=== PATIENT | male | born 1940 | race Caucasian/White ===

== ENCOUNTER → 2016-06-06 | Outpatient (CLI) | payer MEDICARE, OTHER | LOC: MW.CHFP 08:00 | PROVIDERS: ATTEND Emergency Medicine | DX: Z48.02 Encounter for removal of sutures (principal); C44.310 Basal cell carcinoma of skin of unspecified parts of face; Z23 Encounter for immunization | CPT/HCPCS: 90732; G0009; G0463 ==

== ENCOUNTER 2017-09-04 13:02 | Emergency (ER) | payer MEDICARE, OTHER ==
[2017-09-04] MEDS ORDERED: Sodium Chloride 0.9% 10 ML Syringe FLUSH PRN (13:12)
[2017-09-04] MEDS ORDERED: Sodium Chloride 0.9% 2.5 ML Syringe FLUSH PRN (13:12)
[2017-09-04] MEDS ORDERED: Morphine 2 MG/ML Syringe IVPUSH ONE (13:48)
[2017-09-04] MEDS ORDERED: Albuterol/Ipratropium 3.0-0.5 MG/3 ML Neb Soln NEB ONE (13:48)
--- NOTE | 2017-09-04 13:55 | EDM.PDOC ---
ED HPI GENERAL MEDICAL PROBLEM - General Chief Complaint: Back Pain or Injury Stated Complaint: SOB Time Seen by Provider: 09/04/17 13:05 Source of Information: Reports: Patient History Limitations: Reports: No Limitations - History of Present Illness INITIAL COMMENTS - FREE TEXT/NARRATIVE: HISTORY AND PHYSICAL: History of present illness: [Krunal is a 76-year-old male here for muscle spasms and left sided rib pain. Patient states that he started having muscle spasms throughout his trunk 3 days ago. He reports spasming from his belt line to his shoulders front and back, worse with movement. He denies any injury. He states that 2 nights ago he was going to the bathroom, reached to stable himself on the counter and believes he got a muscle spasm that caused him to fall. He reports he hit his left chest on the cabinet and also hit his left elbow and head. He states he thinks he may have lost consciousness. He denies any headache, vomiting, change in vision since. He reports pain in the left chest with deep breaths. History of COPD but no increased SOB or cough. Denies hemoptysis, abdominal pain, hematuria, hematochezia, melena. ] Patient reports he went to [facility] yesterday and was given muscle relaxers which have helped. Review of systems: As per history of present illness and below otherwise all systems reviewed and negative. Past medical history: As per history of present illness and as reviewed below otherwise noncontributory. Surgical history: As per history of present illness and as reviewed below otherwise noncontributory. Social history: No reported history of drug or alcohol abuse. Family history: As per history of present illness and as reviewed below otherwise noncontributory. Physical exam: HEENT: Atraumatic, normocephalic, pupils reactive, negative for conjunctival pallor or scleral icterus, mucous membranes moist, throat clear, neck supple, nontender, trachea midline. Lungs: Rhonchi, wheezing and decreased breath sounds throughout all lungs ochoa. Heart: S1S2, regular, negative for clicks, rubs, or JVD. Abdomen: Soft, nondistended, nontender. Negative for masses or hepatosplenomegaly. Negative for costovertebral tenderness. Pelvis: Stable nontender. Rectal: Deferred. Musculoskeletal: Tender to palpation of left lateral and anterior chest wall over ribs 10-12. Overlying ecchymosis noted. No flail chest. Skin tear and ecchymosis of the left elbow without obvious deformity or swelling. No tenderness to palpation of left clavical and normal ROM of both shoulders and elbows. Extremities: Atraumatic, negative for cords or calf pain. Neurovascular unremarkable. Neuro: Awake, alert, oriented. Cranial nerves II through XII unremarkable. Cerebellum unremarkable. Motor and sensory unremarkable throughout. Exam nonfocal. Notes: Diagnostics: [EKG CBC, CMP, PT/INR, Troponin, UA X-ray left elbow X-ray left ribs with chest ] Therapeutics: [Morphine 2mg IV DuoNeb Azithromycin 250mg Tramadol 50mg Incentive spirometer ] Impression: [Chest wall contusion Skin tear left arm Muscle spasms] Plan: [#1 Take antibiotic and use incentive spirometer as instructed #2 You may take tramadol as needed for severe pain #3 Follow up with your PCP #4 Return to ED as needed as discussed ] Definitive disposition and diagnosis as appropriate pending reevaluation and review of above. Location: Reports: Neck back Pain Score (Numeric/FACES): 7 - Related Data Allergies Allergy/AdvReac Type Severity Reaction Status Date / Time levofloxacin [From Levaquin] Allergy Cannot Verified 09/04/17 14:09 Remember Home Meds: Home Meds Aspirin 81 mg PO DAILY 09/04/17 [History] Benazepril/Hydrochlorothiazide [Benazepril-Hctz 20-12.5 mg Tab] 12.5 mg PO DAILY 09/04/17 [History] Ca Carbonate/Vitamin D3/Vit K [Calcium + D Soft Chewable Tab] 1 tab PO DAILY 06/19 [History] Clopidogrel [Plavix] 75 mg PO DAILY 09/04/17 [History] Diltiazem [Cardizem CD] 120 mg PO DAILY 09/04/17 [History] Simvastatin [Zocor] 10 mg PO BEDTIME 09/04/17 [History] ED ROS GENERAL - Review of Systems Review Of Systems: ROS reveals no pertinent complaints other than HPI. ED EXAM,LOWER BACK PAIN/INJURY - Physical Exam Exam: See Below (see dictation) Course - Vital Signs Last Recorded V/S: Last Vital Signs Temp 36.4 C 09/04/17 13:02 Pulse 80 09/04/17 13:02 Resp 20 09/04/17 13:02 BP 134/84 09/04/17 13:02 Pulse Ox 92 L 09/04/17 13:13 - Orders/Labs/Meds Orders: Active Orders 24 hr Category Date Time Status Cardiac Monitoring [RC] . DIRECTED Care 09/04/17 13:12 Active EKG Documentation Completion [RC] STAT Care 09/04/17 13:13 Active Oxygen Therapy [RC] ASDIRECTED Care 09/04/17 13:12 Active Pulse Oximetry [RC] ASDIRECTED Care 09/04/17 13:12 Active RT Aerosol Therapy [RC] ASDIRECTED Care 09/04/17 13:48 Active Elbow 2V Lt [CR] Stat Exams 09/04/17 13:48 Taken Head wo Cont [CT] Stat Exams 09/04/17 13:55 Taken Ribs 2V w Chest Lt [CR] Stat Exams 09/04/17 13:48 Taken UA W/MICROSCOPIC [URIN] Stat Lab 09/04/17 15:25 Ordered Sodium Chloride 0.9% [Saline Flush] Med 09/04/17 13:12 Active 10 ml FLUSH ASDIRECTED PRN Sodium Chloride 0.9% [Saline Flush] Med 09/04/17 13:12 Active 2.5 ml FLUSH ASDIRECTED PRN Saline Lock Insert [OM.PC] Stat Oth 09/04/17 13:12 Ordered Medication Orders Sodium Chloride (Saline Flush) 10 ml FLUSH ASDIRECTED PRN PRN Reason: Keep Vein Open Sodium Chloride (Saline Flush) 2.5 ml FLUSH ASDIRECTED PRN PRN Reason: Keep Vein Open Labs: Laboratory Tests 09/04/17 09/04/17 09/04/17 Range/Units 13:30 13:30 13:30 WBC 12.27 H (4.0-11.0) K/uL RBC 4.62 (4.50-5.90) M/uL Hgb 16.4 (13.0-17.0) g/dL Hct 46.5 (38.0-50.0) % MCV 100.6 H (80.0-98.0) fL MCH 35.5 H (27.0-32.0) pg MCHC 35.3 (31.0-37.0) g/dL RDW Std Deviation 46.5 (28.0-62.0) fl RDW Coeff of Anibal 13 (11.0-15.0) % Plt Count 193 (150-400) K/uL MPV 11.10 (7.40-12.00) fL Neut % (Auto) 76.3 (48.0-80.0) % Lymph % (Auto) 11.5 L (16.0-40.0) % Runnels % (Auto) 11.9 (0.0-15.0) % Eos % (Auto) 0.1 (0.0-7.0) % Baso % (Auto) 0.2 (0.0-1.5) % Neut # (Auto) 9.4 H (1.4-5.7) K/uL Lymph # (Auto) 1.4 (0.6-2.4) K/uL Runnels # (Auto) 1.5 H (0.0-0.8) K/uL Eos # (Auto) 0.0 (0.0-0.7) K/uL Baso # (Auto) 0.0 (0.0-0.1) K/uL Nucleated RBC % 0.0 /100WBC Nucleated RBCs # 0 K/uL INR 1.06 Sodium 133 L (136-148) mmol/L Potassium 3.4 L (3.5-5.1) mmol/L Chloride 97 L (98-107) mmol/L Carbon Dioxide 27.4 (21.0-32.0) mmol/L BUN 11 (7.0-18.0) mg/dL Creatinine 1.2 (0.8-1.3) mg/dL Est Cr Clr Drug Dosing TNP Estimated GFR (MDRD) 58.9 ml/min Glucose 122 H (74-106) mg/dL Calcium 9.5 (8.5-10.1) mg/dL Total Bilirubin 1.7 H (0.2-1.0) mg/dL AST 22 (15-37) IU/L ALT 16 (14-63) IU/L Alkaline Phosphatase 57 (46-116) U/L Troponin I < 0.050 (0.000-0.056) ng/mL Total Protein 7.1 (6.4-8.2) g/dL Albumin 3.2 L (3.4-5.0) g/dL Globulin 3.9 H (2.0-3.5) g/dL Albumin/Globulin Ratio 0.8 L (1.3-2.8) Urine Color Urine Appearance Urine pH (5.0-8.0) Ur Specific Maynard (1.001-1.035) Urine Protein (NEGATIVE) mg/dL Urine Glucose (UA) (NEGATIVE) mg/dL Urine Ketones (NEGATIVE) mg/dL Urine Occult Blood (NEGATIVE) Urine Nitrite (NEGATIVE) Urine Bilirubin (NEGATIVE) Urine Urobilinogen (<2.0) EU/dL Ur Leukocyte Esterase (NEGATIVE) Urine RBC (0-2/HPF) Urine WBC (0-5/HPF) Ur Epithelial Cells (NONE-FEW) Urine Bacteria (NEGATIVE) 09/04/17 Range/Units 15:25 WBC (4.0-11.0) K/uL RBC (4.50-5.90) M/uL Hgb (13.0-17.0) g/dL Hct (38.0-50.0) % MCV (80.0-98.0) fL MCH (27.0-32.0) pg MCHC (31.0-37.0) g/dL RDW Std Deviation (28.0-62.0) fl RDW Coeff of Anibal (11.0-15.0) % Plt Count (150-400) K/uL MPV (7.40-12.00) fL Neut % (Auto) (48.0-80.0) % Lymph % (Auto) (16.0-40.0) % Runnels % (Auto) (0.0-15.0) % Eos % (Auto) (0.0-7.0) % Baso % (Auto) (0.0-1.5) % Neut # (Auto) (1.4-5.7) K/uL Lymph # (Auto) (0.6-2.4) K/uL Runnels # (Auto) (0.0-0.8) K/uL Eos # (Auto) (0.0-0.7) K/uL Baso # (Auto) (0.0-0.1) K/uL Nucleated RBC % /100WBC Nucleated RBCs # K/uL INR Sodium (136-148) mmol/L Potassium (3.5-5.1) mmol/L Chloride (98-107) mmol/L Carbon Dioxide (21.0-32.0) mmol/L BUN (7.0-18.0) mg/dL Creatinine (0.8-1.3) mg/dL Est Cr Clr Drug Dosing Estimated GFR (MDRD) ml/min Glucose (74-106) mg/dL Calcium (8.5-10.1) mg/dL Total Bilirubin (0.2-1.0) mg/dL AST (15-37) IU/L ALT (14-63) IU/L Alkaline Phosphatase (46-116) U/L Troponin I (0.000-0.056) ng/mL Total Protein (6.4-8.2) g/dL Albumin (3.4-5.0) g/dL Globulin (2.0-3.5) g/dL Albumin/Globulin Ratio (1.3-2.8) Urine Color YELLOW Urine Appearance CLEAR Urine pH 6.0 (5.0-8.0) Ur Specific Maynard 1.010 (1.001-1.035) Urine Protein NEGATIVE (NEGATIVE) mg/dL Urine Glucose (UA) NEGATIVE (NEGATIVE) mg/dL Urine Ketones TRACE H (NEGATIVE) mg/dL Urine Occult Blood TRACE-INTACT (NEGATIVE) Urine Nitrite NEGATIVE (NEGATIVE) Urine Bilirubin NEGATIVE (NEGATIVE) Urine Urobilinogen 0.2 (<2.0) EU/dL Ur Leukocyte Esterase NEGATIVE (NEGATIVE) Urine RBC 0-2 (0-2/HPF) Urine WBC 0-2 (0-5/HPF) Ur Epithelial Cells FEW (NONE-FEW) Urine Bacteria FEW (NEGATIVE) Meds: Medications Generic Name Dose Route Start Last Admin Trade Name Freq PRN Reason Stop Dose Admin Sodium Chloride 10 ml 09/04/17 13:12 Saline Flush FLUSH ASDIRECTED PRN Keep Vein Open Sodium Chloride 2.5 ml 09/04/17 13:12 Saline Flush FLUSH ASDIRECTED PRN Keep Vein Open Discontinued Medications Generic Name Dose Route Start Last Admin Trade Name Freq PRN Reason Stop Dose Admin Albuterol/Ipratropium 3 ml 09/04/17 13:48 09/04/17 14:00 Duoneb 3.0-0.5 Mg/3 Ml NEB 09/04/17 13:49 3 ml ONETIME ONE Administration Morphine Sulfate 2 mg 09/04/17 13:48 09/04/17 14:20 Morphine IVPUSH 09/04/17 13:49 2 mg ONETIME ONE Administration Departure - Departure Time of Disposition: 16:38 Disposition: Home, Self-Care 01 Condition: Good Clinical Impression: Chest wall contusion, Skin tear, Muscle spasm - Discharge Information Referrals: Korey Canseco MD [Primary Care Provider] - Forms: ED Department Discharge Additional Instructions: The following information is given to patients seen in the emergency department who are being discharged to home. This information is to outline your options for follow-up care. We provide all patients seen in our emergency department with a follow-up referral. The need for follow-up, as well as the timing and circumstances, are variable depending upon the specifics of your emergency department visit. If you don't have a primary care physician on staff, we will provide you with a referral. We always advise you to contact your personal physician following an emergency department visit to inform them of the circumstance of the visit and for follow-up with them and/or the need for any referrals to a consulting specialist. The emergency department will also refer you to a specialist when appropriate. This referral assures that you have the opportunity for follow-up care with a specialist. All of these measure are taken in an effort to provide you with optimal care, which includes your follow-up. Under all circumstances we always encourage you to contact your private physician who remains a resource for coordinating your care. When calling for follow-up care, please make the office aware that this follow-up is from your recent emergency room visit. If for any reason you are refused follow-up, please contact the [facility] Emergency Department at and asked to speak to the emergency department charge nurse. [facility] Primary Care [address] [place] [id number] #1 Take antibiotic and use incentive spirometer as instructed #2 You may take tramadol as needed for severe pain #3 Follow up with your PCP #4 Return to ED as needed as discussed - My Orders Last 24 Hours: My Active Orders 09/04/17 13:12 Cardiac Monitoring [RC] . DIRECTED Oxygen Therapy [RC] ASDIRECTED Pulse Oximetry [RC] ASDIRECTED Sodium Chloride 0.9% [Saline Flush] 10 ml FLUSH ASDIRECTED PRN Sodium Chloride 0.9% [Saline Flush] 2.5 ml FLUSH ASDIRECTED PRN Saline Lock Insert [OM.PC] Stat 09/04/17 13:13 EKG Documentation Completion [RC] STAT 09/04/17 13:48 RT Aerosol Therapy [RC] ASDIRECTED Elbow 2V Lt [CR] Stat Ribs 2V w Chest Lt [CR] Stat 09/04/17 13:55 Head wo Cont [CT] Stat 09/04/17 15:25 UA W/MICROSCOPIC [URIN] Stat - Assessment/Plan Last 24 Hours: My Active Orders 09/04/17 13:12 Cardiac Monitoring [RC] . DIRECTED Oxygen Therapy [RC] ASDIRECTED Pulse Oximetry [RC] ASDIRECTED Sodium Chloride 0.9% [Saline Flush] 10 ml FLUSH ASDIRECTED PRN Sodium Chloride 0.9% [Saline Flush] 2.5 ml FLUSH ASDIRECTED PRN Saline Lock Insert [OM.PC] Stat 09/04/17 13:13 EKG Documentation Completion [RC] STAT 09/04/17 13:48 RT Aerosol Therapy [RC] ASDIRECTED Elbow 2V Lt [CR] Stat Ribs 2V w Chest Lt [CR] Stat 09/04/17 13:55 Head wo Cont [CT] Stat 09/04/17 15:25 UA W/MICROSCOPIC [URIN] Stat
[2017-09-04 14:08] LABS: CHLORIDE,CL 97 mmol/L (98-107); SODIUM,NA 133 mmol/L (136-148)
--- NOTE | 2017-09-05 10:16 | CT ---
EXAM DATE: 09/04/17 PATIENT'S AGE: 76 Patient: LIZETTE BAIN Facility: [place], [place] Site . Site : 1940 Study: CT Head [id number]/4/2018 2:49:59 PM Ordering Physician: Doctor Akers Final Report: INDICATION: Head injury. TECHNIQUE: Head CT without contrast. COMPARISON: None FINDINGS: CSF spaces: Within normal limits for age. Brain parenchyma: There are nonspecific low attenuation white matter changes consistent with chronic microvascular disease. No sign of mass, hemorrhage, or midline shift. Skull base and calvarium: The visualized paranasal sinuses and mastoid air cells are clear. 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 The visualized orbits are grossly unremarkable. No skull fractures. There is intracranial atherosclerosis. IMPRESSION: 1. No acute findings. 2. Nonspecific white matter disease, typical of chronic microvascular disease. Please note that all CT scans at this facility use dose modulation, iterative reconstruction, and/or weight-based dosing when appropriate to reduce radiation dose to as low as reasonably achievable. Dictated by Mervin Quiroz MD @ Sep 04 2017 2:58PM (Electronic Signature) Report Signed by Proxy. [facility]
--- NOTE | 2017-09-05 10:18 | CR ---
EXAM DATE: 09/04/17 PATIENT'S AGE: 76 Patient: LIZETTE BAIN Facility: [place], [place] Site . Site : 1940 Study: XRay Extremity Left ELBOW [id number]/4/2018 3:16:28 PM Ordering Physician: Doctor Akers Final Report: INDICATION: Elbow pain after fall. TECHNIQUE: Two views left elbow COMPARISON: None FINDINGS: Bones: No acute fracture. No dislocation. No suspicious bone lesion. Joint spaces: Small osteophyte at the coronoid process of the ulna. Soft tissues: Unremarkable. IMPRESSION: No acute osseous abnormality. Dictated by Ortiz Mckeon MD @ 09/04/2017 3:35:37 PM Dictated by: Ortiz Mckeon MD @ 09/04/2017 15:35:46 (Electronic Signature) Report Signed by Proxy. LEONCIO
--- NOTE | 2017-09-05 10:22 | CR ---
EXAM DATE: 09/04/17 PATIENT'S AGE: 76 Patient: LIZETTE BAIN Facility: [place], [place] Site . Site : 1940 Study: XRay Chest Left RIBS [id number]/4/2018 3:19:11 PM Ordering Physician: Doctor Akers Final Report: INDICATION: Pain after fall TECHNIQUE: Chest and left ribs - 4 views. COMPARISON: Chest radiograph. 09/03/2012. FINDINGS: The cardiac silhouette is not enlarged. The mediastinal contour is stable. Pulmonary vasculature is normal. New mild elevation of the right hemidiaphragm. There is apparent scarring versus atelectasis in the right infrahilar retrocardiac region. No lobar consolidation. No edema. No lung mass. No pneumothorax or pleural effusion. There degenerate changes at the left AC joint. No rib fracture identified. IMPRESSION: No acute abnormality. Dictated by Ortiz Mckeon MD @ 09/04/2017 3:40:33 PM Dictated by: Ortiz Mckeon MD @ 09/04/2017 15:40:37 (Electronic Signature) Report Signed by Proxy. [facility]
== END 2017-09-04 17:03 | disposition home or self-care (01) ==
LOC: MW.ED 13:02
DX: S51.012A Laceration without foreign body of left elbow, initial encounter (principal); S20.212A Contusion of left front wall of thorax, initial encounter; M62.838 Other muscle spasm; J44.9 Chronic obstructive pulmonary disease, unspecified; Z88.1 Allergy status to other antibiotic agents; Z79.82 Long term (current) use of aspirin; Z79.899 Other long term (current) drug therapy; W06.XXXA Fall from bed, initial encounter
CPT/HCPCS: 36415; 70450; 71101; 73070; 80053; 81001; 84484; 85025; 85610; 93005; 94640; 96372; 99284; J2270

== ENCOUNTER 2017-11-20 17:28 | Inpatient (IN) | payer MEDICARE, OTHER ==
[2017-11-20] MEDS ORDERED: Sodium Chloride 0.9% 250 ML IV SCH (18:30)
[2017-11-20] MEDS ORDERED: methylPREDNISolone Sodium Succinate 125 MG/2 ML SDV IVPUSH ONE (18:46)
--- NOTE | 2017-11-20 18:46 | EDM.PDOC ---
<Albert Stauffer - Last Filed: 11/20/17 18:47> ED HPI GENERAL MEDICAL PROBLEM - General Chief Complaint: General Stated Complaint: WEAK,DIZZY AND DEHYDERATED Time Seen by Provider: 11/20/17 18:44 Source of Information: Reports: Patient - History of Present Illness INITIAL COMMENTS - FREE TEXT/NARRATIVE: HISTORY AND PHYSICAL: History of present illness: []Patient presents with generalized weakness and cough, he has secondary complaint of low back pain this is not a new issue he has an MRI on file from 2 weeks ago no injury or trauma He presents with his daughter was concerned as he is generally weak and tired and noted that his oxygen levels at rest or slightly low at 89% and white count is elevated Patient denies fever chills sweats denies shortness of breath but is fairly tired even drowsy while I am speaking with him and examining him He is on Flexeril and tramadol due to the back pain which could cause the drowsy side effect Review of systems: As per history of present illness and below otherwise all systems reviewed and negative. Past medical history: As per history of present illness and as reviewed below otherwise noncontributory. Surgical history: As per history of present illness and as reviewed below otherwise noncontributory. Social history: No reported history of drug or alcohol abuse. Family history: As per history of present illness and as reviewed below otherwise noncontributory. Physical exam: HEENT: Atraumatic, normocephalic, pupils reactive, negative for conjunctival pallor or scleral icterus, mucous membranes moist, throat clear, neck supple, nontender, trachea midline. Lungs: Clear to auscultation, breath sounds equal bilaterally, chest nontender. Heart: S1S2, regular, negative for clicks, rubs, or JVD. Abdomen: Soft, nondistended, nontender. Negative for masses or hepatosplenomegaly. Negative for costovertebral tenderness. Pelvis: Stable nontender. Genitourinary: Deferred. Rectal: Deferred. Extremities: Atraumatic, negative for cords or calf pain. Neurovascular unremarkable. Neuro: Awake, alert, oriented. Cranial nerves II through XII unremarkable. Cerebellum unremarkable. Motor and sensory unremarkable throughout. Exam nonfocal. Diagnostics: [CBC CMP UA troponin blood cultures EKG Chest 1 view ]MRI lumbar spine on file from 2 weeks prior Therapeutics: [ saline 1 25 mL per hour Solu-Medrol 125 mg IV DuoNeb ] I've seen and examined the patient as above I'll be signing the patient out to [place] to follow the lab and chest x-ray and redirect for definitive disposition as shift change is nearing in a few minutes, patient is in no acute distress whatsoever at this time Impression: [ generalized weakness Fatigue ] O2 levels 89 at rest Chronic history baseline Definitive disposition and diagnosis as appropriate pending reevaluation and review of above. lower back Pain Score (Numeric/FACES): 5 - Related Data Allergies Allergy/AdvReac Type Severity Reaction Status Date / Time [facility] Allergy Cannot Verified 11/20/17 17:45 Remember Home Meds: Home Meds Aspirin 81 mg PO DAILY 09/04/17 [History] Benazepril/Hydrochlorothiazide [Benazepril-Hctz 20-12.5 mg Tab] 12.5 mg PO DAILY 09/04/17 [History] Ca Carbonate/Vitamin D3/Vit K [Calcium + D Soft Chewable Tab] 1 tab PO DAILY 06/19 [History] Clopidogrel [Plavix] 75 mg PO DAILY 09/04/17 [History] Diltiazem [Cardizem CD] 120 mg PO DAILY 09/04/17 [History] Simvastatin [Zocor] 10 mg PO BEDTIME 09/04/17 [History] Cyclobenzaprine [Flexeril] 10 mg PO TID 11/20/17 [History] Metaxalone 800 mg PO 11/20/17 [History] traMADol HCl [Tramadol HCl] 50 mg PO DAILY 11/20/17 [History] Past Medical History Respiratory History: Reports: COPD Musculoskeletal History: Reports: Back Pain, Chronic Other Musculoskeletal History: 2 back surgeries Course - Vital Signs Last Recorded V/S: Last Vital Signs Temp 36.2 C 11/20/17 17:45 Pulse 99 11/20/17 20:04 Resp 18 11/20/17 20:04 BP 124/74 11/20/17 20:04 Pulse Ox 92 L 11/20/17 20:04 - Orders/Labs/Meds Orders: Active Orders 24 hr Category Date Time Status Admission Status [Patient Status] [ADT] Stat ADT 11/20/17 21:13 Active EKG Documentation Completion [RC] STAT Care 11/20/17 18:29 Active RT Aerosol Therapy [RC] ASDIRECTED Care 11/20/17 18:47 Active Chest 1V Frontal [CR] Stat Exams 11/20/17 18:32 Taken CULTURE BLOOD [BC] Stat Lab 11/20/17 19:06 Received CULTURE BLOOD [BC] Stat Lab 11/20/17 19:10 Results LACTATE WITH REFLEX [BG] Stat Lab 11/20/17 21:01 Ordered Sodium Chloride 0.9% [Normal Saline] 250 ml Med 11/20/17 18:30 Active IV STAT Blood Culture x2 Reflex Set [OM.PC] Stat Oth 11/20/17 18:44 Ordered Medication Orders Sodium Chloride (Normal Saline) 250 mls @ 999 mls/hr IV STAT LITTLE Last Admin: 11/20/17 19:08 Dose: 999 mls/hr Labs: Laboratory Tests 11/20/17 11/20/17 11/20/17 Range/Units 18:15 18:15 18:28 WBC 17.96 H (4.0-11.0) K/uL RBC 4.68 (4.50-5.90) M/uL Hgb 15.7 (13.0-17.0) g/dL Hct 45.3 (38.0-50.0) % MCV 96.8 (80.0-98.0) fL MCH 33.5 H (27.0-32.0) pg MCHC 34.7 (31.0-37.0) g/dL RDW Std Deviation 45.3 (28.0-62.0) fl RDW Coeff of Anibal 13 (11.0-15.0) % Plt Count 211 (150-400) K/uL MPV 11.20 (7.40-12.00) fL Neut % (Auto) 89.2 H (48.0-80.0) % Lymph % (Auto) 4.9 L (16.0-40.0) % [place] % (Auto) 5.7 (0.0-15.0) % Eos % (Auto) 0.1 (0.0-7.0) % Baso % (Auto) 0.1 (0.0-1.5) % Neut # (Auto) 16.0 H (1.4-5.7) K/uL Lymph # (Auto) 0.9 (0.6-2.4) K/uL [place] # (Auto) 1.0 H (0.0-0.8) K/uL Eos # (Auto) 0.0 (0.0-0.7) K/uL Baso # (Auto) 0.0 (0.0-0.1) K/uL Nucleated RBC % 0.0 /100WBC Nucleated RBCs # 0 K/uL INR 1.07 Lactate (0.20-2.00) mmol/L Sodium 130 L (136-148) mmol/L Potassium 3.6 (3.5-5.1) mmol/L Chloride 92 L (98-107) mmol/L Carbon Dioxide 28.9 (21.0-32.0) mmol/L BUN 15 (7.0-18.0) mg/dL Creatinine 1.3 (0.8-1.3) mg/dL Est Cr Clr Drug Dosing 49.13 mL/min Estimated GFR (MDRD) 53.5 ml/min Glucose 106 (74-106) mg/dL Calcium 9.9 (8.5-10.1) mg/dL Total Bilirubin 1.5 H (0.2-1.0) mg/dL AST 30 (15-37) IU/L ALT 16 (14-63) IU/L Alkaline Phosphatase 136 H (46-116) U/L Troponin I < 0.050 (0.000-0.056) ng/mL Total Protein 7.6 (6.4-8.2) g/dL Albumin 3.4 (3.4-5.0) g/dL Globulin 4.2 H (2.0-3.5) g/dL Albumin/Globulin Ratio 0.8 L (1.3-2.8) Urine Color Urine Appearance Urine pH (5.0-8.0) Ur Specific [place] (1.001-1.035) Urine Protein (NEGATIVE) mg/dL Urine Glucose (UA) (NEGATIVE) mg/dL Urine Ketones (NEGATIVE) mg/dL Urine Occult Blood (NEGATIVE) Urine Nitrite (NEGATIVE) Urine Bilirubin (NEGATIVE) Urine Ictotest Urine Urobilinogen (<2.0) EU/dL Ur Leukocyte Esterase (NEGATIVE) Urine RBC (0-2/HPF) Urine WBC (0-5/HPF) Ur Epithelial Cells (NONE-FEW) Urine Bacteria (NEGATIVE) Hyaline Casts (0-2/LPF) 11/20/17 11/20/17 Range/Units 19:10 20:03 WBC (4.0-11.0) K/uL RBC (4.50-5.90) M/uL Hgb (13.0-17.0) g/dL Hct (38.0-50.0) % MCV (80.0-98.0) fL MCH (27.0-32.0) pg MCHC (31.0-37.0) g/dL RDW Std Deviation (28.0-62.0) fl RDW Coeff of [place]ibal (11.0-15.0) % Plt Count (150-400) K/uL MPV (7.40-12.00) fL Neut % (Auto) (48.0-80.0) % Lymph % (Auto) (16.0-40.0) % [place] % (Auto) (0.0-15.0) % Eos % (Auto) (0.0-7.0) % Baso % (Auto) (0.0-1.5) % Neut # (Auto) (1.4-5.7) K/uL Lymph # (Auto) (0.6-2.4) K/uL [place] # (Auto) (0.0-0.8) K/uL Eos # (Auto) (0.0-0.7) K/uL Baso # (Auto) (0.0-0.1) K/uL Nucleated RBC % /100WBC Nucleated RBCs # K/uL INR Lactate 0.7 (0.20-2.00) mmol/L Sodium (136-148) mmol/L Potassium (3.5-5.1) mmol/L Chloride (98-107) mmol/L Carbon Dioxide (21.0-32.0) mmol/L BUN (7.0-18.0) mg/dL Creatinine (0.8-1.3) mg/dL Est Cr Clr Drug Dosing mL/min Estimated GFR (MDRD) ml/min Glucose (74-106) mg/dL Calcium (8.5-10.1) mg/dL Total Bilirubin (0.2-1.0) mg/dL AST (15-37) IU/L ALT (14-63) IU/L Alkaline Phosphatase (46-116) U/L Troponin I (0.000-0.056) ng/mL Total Protein (6.4-8.2) g/dL Albumin (3.4-5.0) g/dL Globulin (2.0-3.5) g/dL Albumin/Globulin Ratio (1.3-2.8) Urine Color YELLOW Urine Appearance CLEAR Urine pH 6.0 (5.0-8.0) Ur Specific [place] 1.015 (1.001-1.035) Urine Protein NEGATIVE (NEGATIVE) mg/dL Urine Glucose (UA) NEGATIVE (NEGATIVE) mg/dL Urine Ketones 15 H (NEGATIVE) mg/dL Urine Occult Blood NEGATIVE (NEGATIVE) Urine Nitrite NEGATIVE (NEGATIVE) Urine Bilirubin SMALL H (NEGATIVE) Urine Ictotest NEGATIVE Urine Urobilinogen 0.2 (<2.0) EU/dL Ur Leukocyte Esterase NEGATIVE (NEGATIVE) Urine RBC 0-1 (0-2/HPF) Urine WBC 0-2 (0-5/HPF) Ur Epithelial Cells OCCASIONAL (NONE-FEW) Urine Bacteria FEW (NEGATIVE) Hyaline Casts 10-15 (0-2/LPF) Meds: Medications Generic Name Dose Route Start Last Admin Trade Name Freq PRN Reason Stop Dose Admin Sodium Chloride 250 mls @ 999 mls/hr 11/20/17 18:30 11/20/17 19:08 Normal Saline IV 999 mls/hr STAT LITTLE Administration Discontinued Medications Generic Name Dose Route Start Last Admin Trade Name Freq PRN Reason Stop Dose Admin Albuterol/Ipratropium 3 ml 11/20/17 18:47 11/20/17 19:12 Duoneb 3.0-0.5 Mg/3 Ml NEB 11/20/17 18:48 3 ml ONETIME ONE Administration Methylprednisolone Sodium Succinate 125 mg 11/20/17 18:46 11/20/17 19:07 Solu-Medrol IVPUSH 11/20/17 18:47 125 mg ONETIME ONE Administration Departure - Departure Disposition: Refer to Observation Clinical Impression: Pneumonia - Discharge Information Referrals: PCP,None [Primary Care Provider] - Forms: ED Department Discharge - My Orders Last 24 Hours: My Active Orders 11/20/17 21:01 LACTATE WITH REFLEX [BG] Stat 11/20/17 21:13 Admission Status [Patient Status] [ADT] Stat - Assessment/Plan Last 24 Hours: My Active Orders 11/20/17 21:01 LACTATE WITH REFLEX [BG] Stat 11/20/17 21:13 Admission Status [Patient Status] [ADT] Stat <Evelin Kumar - Last Filed: 11/20/17 21:15> ED HPI GENERAL MEDICAL PROBLEM - History of Present Illness INITIAL COMMENTS - FREE TEXT/NARRATIVE: Discussed with Dr. Draper, patient will be admitted to observation for IV antibiotics for pneumonia. ED ROS GENERAL - Review of Systems Review Of Systems: ROS reveals no pertinent complaints other than HPI. ED EXAM, GENERAL - Physical Exam Exam: See Below (see dictation) Departure - Departure Time of Disposition: 21:15 Condition: Good - My Orders Last 24 Hours: My Active Orders 11/20/17 21:01 LACTATE WITH REFLEX [BG] Stat 11/20/17 21:13 Admission Status [Patient Status] [ADT] Stat - Assessment/Plan Last 24 Hours: My Active Orders 11/20/17 21:01 LACTATE WITH REFLEX [BG] Stat 11/20/17 21:13 Admission Status [Patient Status] [ADT] Stat
[2017-11-20] MEDS ORDERED: Albuterol/Ipratropium 3.0-0.5 MG/3 ML Neb Soln NEB ONE (18:47)
[2017-11-20 19:08] LABS: CHLORIDE,CL 92 mmol/L (98-107); SODIUM,NA 130 mmol/L (136-148)
[2017-11-20] MEDS ORDERED: cefTRIAXone 1 GM in Sodium Chloride 0.9% 50 ML IV ONE (21:17)
--- NOTE | 2017-11-20 22:31 | PCM.HP ---
H&P History of Present Illness - General Date of Service: 11/20/17 Admit Problem/Dx: Admission Diagnosis/Problem Admission Diagnosis/Problem Pneumonia - History of Present Illness Initial Comments - Free Text/Narative: His daughter states that she sought medical attention for him today because he was "out of it". He has been confused. He seems short of breath and was coughing. When questioned, he states that he is here because of back pain. I see in review of his chart that he has been evaluated the past two months for spinal stenosis, neural foraminal impingement, as well as compression fractures noted on MRI scanning last week of T11 and T12. Vertebroplasty has been planned. He lives alone and usually can do self care, drive a car . He seems perhaps a little forgetful at times but he has never been diagnosed with confusion. He already seems improving to family members. He smokes cigarettes and has a history of copd. lower back Pain Score (Numeric/FACES): 5 - Related Data Allergies/Adverse Reactions: Allergies Allergy/AdvReac Type Severity Reaction Status Date / Time levofloxacin [From Levaquin] Allergy Cannot Verified 11/20/17 17:45 Remember Home Medications: Home Meds Aspirin 81 mg PO DAILY 09/04/17 [History] Benazepril/Hydrochlorothiazide [Benazepril-Hctz 20-12.5 mg Tab] 12.5 mg PO DAILY 09/04/17 [History] Ca Carbonate/Vitamin D3/Vit K [Calcium + D Soft Chewable Tab] 1 tab PO DAILY 06/19 [History] Clopidogrel [Plavix] 75 mg PO DAILY 09/04/17 [History] Diltiazem [Cardizem CD] 120 mg PO DAILY 09/04/17 [History] Simvastatin [Zocor] 10 mg PO BEDTIME 09/04/17 [History] Cyclobenzaprine [Flexeril] 10 mg PO TID 11/20/17 [History] Metaxalone 800 mg PO 11/20/17 [History] traMADol HCl [Tramadol HCl] 50 mg PO DAILY 11/20/17 [History] Past Medical History HEENT History: Reports: Impaired Vision Cardiovascular History: Reports: CAD Respiratory History: Reports: COPD Gastrointestinal History: Denies: Cirrhosis Genitourinary History: Denies: Chronic Renal Insuffiency Musculoskeletal History: Reports: Back Pain, Chronic Other Musculoskeletal History: 2 back surgeries Neurological History: Denies: Alzheimers Disease, CVA, MS Endocrine/Metabolic History: Denies: Diabetes, Type I, Diabetes, Type II Hematologic History: Denies: Anticoagulation Therapy Immunologic History: Denies: AIDS, HIV, Solid Organ Transplant - Infectious Disease History Infectious Disease History: Reports: Chicken Pox Social & Family History - Family History Family Medical History: Noncontributory - Tobacco Use Smoking Status *Q: Light Tobacco Smoker Years of Tobacco use: 50 Packs/Tins Daily: 0.4 Second Hand Smoke Exposure: Yes - Caffeine Use Caffeine Use: Reports: Coffee - Recreational Drug Use Recreational Drug Use: No H&P Review of Systems - Review of Systems: Review Of Systems: See Below General: Denies: Fever, Chills Pulmonary: Reports: Shortness of Breath, Cough Cardiovascular: Denies: Chest Pain Gastrointestinal: Reports: Other (he denies feeling constipated but states that he has not had a bm for about a week). Denies: Abdominal Pain, Black Stool, Bloody Stool Psychiatric: Reports: Confusion Review of Systems Comment:: he notes back pain Exam - Exam Exam: See Below (tenderness over the lower thoracic and upper lumbar spine) - Vital Signs Vital Signs: Last Vital Signs Temp 97.2 F 11/20/17 17:45 Pulse 99 11/20/17 20:04 Resp 18 11/20/17 20:04 BP 124/74 11/20/17 20:04 Pulse Ox 92 L 11/20/17 20:04 Weight: 74.843 kg - Exam General: Alert, Cooperative. No: Oriented HEENT: EOMI, Other (dry oral mucosa) Neck: Supple, Trachea Midline Lungs: Clear to Auscultation, Normal Respiratory Effort Cardiovascular: Regular Rate, Regular Rhythm GI/Abdominal Exam: Soft, Non-Tender Rectal (Males) Exam: Deferred Skin: Warm Neurological: Normal Speech (no dysarthria but speech confused) Neuro Extensive - Motor, Sensory, Reflexes: No: Facial palsy (L), Facial Palsy ( R) Physical Exam Comments:: normal capillary refill toes. - Patient Data Lab Results Last 24 hrs: Laboratory Results - last 24 hr 11/20/17 11/20/17 11/20/17 Range/Units 18:15 18:15 18:28 WBC 17.96 H (4.0-11.0) K/uL RBC 4.68 (4.50-5.90) M/uL Hgb 15.7 (13.0-17.0) g/dL Hct 45.3 (38.0-50.0) % MCV 96.8 (80.0-98.0) fL MCH 33.5 H (27.0-32.0) pg MCHC 34.7 (31.0-37.0) g/dL RDW Std Deviation 45.3 (28.0-62.0) fl RDW Coeff of Anibal 13 (11.0-15.0) % Plt Count 211 (150-400) K/uL MPV 11.20 (7.40-12.00) fL Neut % (Auto) 89.2 H (48.0-80.0) % Lymph % (Auto) 4.9 L (16.0-40.0) % [place] % (Auto) 5.7 (0.0-15.0) % Eos % (Auto) 0.1 (0.0-7.0) % Baso % (Auto) 0.1 (0.0-1.5) % Neut # (Auto) 16.0 H (1.4-5.7) K/uL Lymph # (Auto) 0.9 (0.6-2.4) K/uL [place] # (Auto) 1.0 H (0.0-0.8) K/uL Eos # (Auto) 0.0 (0.0-0.7) K/uL Baso # (Auto) 0.0 (0.0-0.1) K/uL Nucleated RBC % 0.0 /100WBC Nucleated RBCs # 0 K/uL INR 1.07 Lactate (0.20-2.00) mmol/L Sodium 130 L (136-148) mmol/L Potassium 3.6 (3.5-5.1) mmol/L Chloride 92 L (98-107) mmol/L Carbon Dioxide 28.9 (21.0-32.0) mmol/L BUN 15 (7.0-18.0) mg/dL Creatinine 1.3 (0.8-1.3) mg/dL Est Cr Clr Drug Dosing 49.13 mL/min Estimated GFR (MDRD) 53.5 ml/min Glucose 106 (74-106) mg/dL Calcium 9.9 (8.5-10.1) mg/dL Total Bilirubin 1.5 H (0.2-1.0) mg/dL AST 30 (15-37) IU/L ALT 16 (14-63) IU/L Alkaline Phosphatase 136 H (46-116) U/L Troponin I < 0.050 (0.000-0.056) ng/mL Total Protein 7.6 (6.4-8.2) g/dL Albumin 3.4 (3.4-5.0) g/dL Globulin 4.2 H (2.0-3.5) g/dL Albumin/Globulin Ratio 0.8 L (1.3-2.8) Urine Color Urine Appearance Urine pH (5.0-8.0) Ur Specific [place] (1.001-1.035) Urine Protein (NEGATIVE) mg/dL Urine Glucose (UA) (NEGATIVE) mg/dL Urine Ketones (NEGATIVE) mg/dL Urine Occult Blood (NEGATIVE) Urine Nitrite (NEGATIVE) Urine Bilirubin (NEGATIVE) Urine Ictotest Urine Urobilinogen (<2.0) EU/dL Ur Leukocyte Esterase (NEGATIVE) Urine RBC (0-2/HPF) Urine WBC (0-5/HPF) Ur Epithelial Cells (NONE-FEW) Urine Bacteria (NEGATIVE) Hyaline Casts (0-2/LPF) 11/20/17 11/20/17 Range/Units 19:10 20:03 WBC (4.0-11.0) K/uL RBC (4.50-5.90) M/uL Hgb (13.0-17.0) g/dL Hct (38.0-50.0) % MCV (80.0-98.0) fL MCH (27.0-32.0) pg MCHC (31.0-37.0) g/dL RDW Std Deviation (28.0-62.0) fl RDW Coeff of Anibal (11.0-15.0) % Plt Count (150-400) K/uL MPV (7.40-12.00) fL Neut % (Auto) (48.0-80.0) % Lymph % (Auto) (16.0-40.0) % [place] % (Auto) (0.0-15.0) % Eos % (Auto) (0.0-7.0) % Baso % (Auto) (0.0-1.5) % Neut # (Auto) (1.4-5.7) K/uL Lymph # (Auto) (0.6-2.4) K/uL [place] # (Auto) (0.0-0.8) K/uL Eos # (Auto) (0.0-0.7) K/uL Baso # (Auto) (0.0-0.1) K/uL Nucleated RBC % /100WBC Nucleated RBCs # K/uL INR Lactate 0.7 (0.20-2.00) mmol/L Sodium (136-148) mmol/L Potassium (3.5-5.1) mmol/L Chloride (98-107) mmol/L Carbon Dioxide (21.0-32.0) mmol/L BUN (7.0-18.0) mg/dL Creatinine (0.8-1.3) mg/dL Est Cr Clr Drug Dosing mL/min Estimated GFR (MDRD) ml/min Glucose (74-106) mg/dL Calcium (8.5-10.1) mg/dL Total Bilirubin (0.2-1.0) mg/dL AST (15-37) IU/L ALT (14-63) IU/L Alkaline Phosphatase (46-116) U/L Troponin I (0.000-0.056) ng/mL Total Protein (6.4-8.2) g/dL Albumin (3.4-5.0) g/dL Globulin (2.0-3.5) g/dL Albumin/Globulin Ratio (1.3-2.8) Urine Color YELLOW Urine Appearance CLEAR Urine pH 6.0 (5.0-8.0) Ur Specific [place] 1.015 (1.001-1.035) Urine Protein NEGATIVE (NEGATIVE) mg/dL Urine Glucose (UA) NEGATIVE (NEGATIVE) mg/dL Urine Ketones 15 H (NEGATIVE) mg/dL Urine Occult Blood NEGATIVE (NEGATIVE) Urine Nitrite NEGATIVE (NEGATIVE) Urine Bilirubin SMALL H (NEGATIVE) Urine Ictotest NEGATIVE Urine Urobilinogen 0.2 (<2.0) EU/dL Ur Leukocyte Esterase NEGATIVE (NEGATIVE) Urine RBC 0-1 (0-2/HPF) Urine WBC 0-2 (0-5/HPF) Ur Epithelial Cells OCCASIONAL (NONE-FEW) Urine Bacteria FEW (NEGATIVE) Hyaline Casts 10-15 (0-2/LPF) Result Diagrams: 11/20/17 18:28 11/20/17 18:15 Gerald Results Last 24 hrs: Microbiology 11/20/17 19:10 Anaerobic Blood Culture - Final Blood - Arm, Left - Problem List (1) Pneumonia SNOMED Code(s): 866309688 ICD Code: J18.9 - PNEUMONIA, UNSPECIFIED ORGANISM Status: Acute Current Visit: Yes (2) Pneumonia SNOMED Code(s): 353760198 ICD Code: J18.9 - PNEUMONIA, UNSPECIFIED ORGANISM Status: Acute Current Visit: Yes (3) COPD (chronic obstructive pulmonary disease) SNOMED Code(s): 54904839 ICD Code: J44.9 - CHRONIC OBSTRUCTIVE PULMONARY DISEASE, UNSPECIFIED Status : Acute Current Visit: Yes (4) Confusion SNOMED Code(s): 771620345 ICD Code: R41.0 - DISORIENTATION, UNSPECIFIED Status: Acute Current Visit : Yes (5) Leukocytosis SNOMED Code(s): 533068545, 861843669 ICD Code: D72.829 - ELEVATED WHITE BLOOD CELL COUNT, UNSPECIFIED Status: Acute Current Visit: Yes Problem List Initiated/Reviewed/Updated: Yes Orders Last 24hrs: Active Orders 24 hr Category Date Time Status Admission Status [Patient Status] [ADT] Stat ADT 11/20/17 21:13 Active EKG Documentation Completion [RC] STAT Care 11/20/17 18:29 Active RT Aerosol Therapy [RC] ASDIRECTED Care 11/20/17 18:47 Active Chest 1V Frontal [CR] Stat Exams 11/20/17 18:32 Taken CULTURE BLOOD [BC] Stat Lab 11/20/17 19:06 Received CULTURE BLOOD [BC] Stat Lab 11/20/17 19:10 Results LACTATE WITH REFLEX [BG] Stat Lab 11/20/17 21:01 Ordered Sodium Chloride 0.9% [Normal Saline] 250 ml Med 11/20/17 18:30 Active IV STAT Blood Culture x2 Reflex Set [OM.PC] Stat Oth 11/20/17 18:44 Ordered Medication Orders Sodium Chloride (Normal Saline) 250 mls @ 999 mls/hr IV STAT LITTLE Last Admin: 11/20/17 19:08 Dose: 999 mls/hr Assessment/Plan Comment:: cxr: hyperexpansion; haziness lower lung ochoa bilaterally I think that he has pneumonia clinically will cover with antibiotics He may have sepsis he had an oxygen saturation on room air earlier today of 89% see orders
[2017-11-20] MEDS ORDERED: LORazepam 2 MG/ML SDV IVPUSH PRN (22:41)
[2017-11-20] MEDS ORDERED: Albuterol/Ipratropium 3.0-0.5 MG/3 ML Neb Soln NEB PRN (22:41)
[2017-11-20] MEDS ORDERED: Acetaminophen 325 MG Tab PO PRN (22:41)
[2017-11-20] MEDS ORDERED: Bisacodyl 5 MG Tab PO PRN (22:41)
[2017-11-20] MEDS ORDERED: Ondansetron 4 MG Tab.DIS PO PRN (22:41)
[2017-11-20] MEDS ORDERED: Temazepam 15 MG Cap PO PRN (22:41)
[2017-11-20] MEDS ORDERED: Morphine 2 MG/ML Syringe IVPUSH PRN (22:48)
[2017-11-20] MEDS ORDERED: Azithromycin 500 MG in Sodium Chloride 0.9% 250 ML IV SCH (23:00)
[2017-11-20] MEDS: Cefepime 1 GM in Premix Bag 1 BAG IV SCH (23:05)
[2017-11-20] MEDS: NS + KCl 20mEq/L 1,000 ML IV SCH (23:52)
[2017-11-21] MEDS ORDERED: Heparin Sodium 5,000 Units/ML Vial SUBCUT SCH
[2017-11-21] MEDS: traMADol 50 MG Tab PO SCH ×3 (00:13→20:11)
[2017-11-21] MEDS: Azithromycin 500 MG in Sodium Chloride 0.9% 250 ML IV SCH ×2 (00:15→23:37)
[2017-11-21 05:52] LABS: CHLORIDE,CL 99 mmol/L (98-107); SODIUM,NA 131 mmol/L (136-148)
[2017-11-21] MEDS: Cefepime 1 GM in Premix Bag 1 BAG IV SCH ×3 (06:11→21:18)
[2017-11-21] MEDS: Cyclobenzaprine 10 MG Tab PO SCH ×3 (06:12→21:18)
[2017-11-21] MEDS: Diltiazem 120 MG Cap.CD PO SCH (08:00)
[2017-11-21] MEDS: Benazepril 10 MG Tab PO SCH (08:00)
[2017-11-21] MEDS: Clopidogrel 75 MG Tab PO SCH (08:03)
[2017-11-21] MEDS: Hydrochlorothiazide 12.5 MG Cap PO SCH (08:04)
[2017-11-21] MEDS: Docusate Sodium 100 MG Cap PO SCH ×2 (08:04→20:12)
[2017-11-21] MEDS: Aspirin 81 MG Tab.Chew PO SCH (08:04)
[2017-11-21] MEDS: NS + KCl 20mEq/L 1,000 ML IV SCH ×2 (08:06→15:20)
[2017-11-21] MEDS: Enoxaparin 40 MG/0.4 ML Syringe SUBCUT SCH (08:06)
--- NOTE | 2017-11-21 10:27 | CR ---
EXAM DATE: 11/20/17 PATIENT'S AGE: 77 Patient: LIZETTE BAIN Facility: [place], [place] Site . Site : [id number] Study: XRay Chest [id number] 7:23:07 PM Ordering Physician: Doctor Akers Final Report: Indication: Weakness and low back pain. Technique: AP views of the chest were obtained. Comparison: None Findings: The lungs are hyperinflated. The aorta is tortuous. The heart is normal in size. No infiltrate, pleural effusion, or pneumothorax is identified. Impression: No acute cardiopulmonary process Dictated by Debra Díaz MD @ Nov 20 2017 7:28PM (Electronic Signature) Report Signed by Proxy. LEONCIO
[2017-11-21] MEDS: Nicotine 21 MG/24 Hr Patch TRDERM SCH (13:06)
--- NOTE | 2017-11-21 13:28 | PCM.PN ---
- General Info Date of Service: 11/21/17 Subjective Update: He is feeling a lot better now. he is eating well. - Patient Data Vitals - Most Recent: Last Vital Signs Temp 97.1 F 11/21/17 12:00 Pulse 76 11/21/17 12:00 Resp 18 11/21/17 12:00 BP 111/64 11/21/17 12:00 Pulse Ox 93 L 11/21/17 12:00 Weight - Most Recent: 74.843 kg I&O - Last 24 Hours: Intake & Output 11/20/17 11/21/17 11/21/17 22:59 06:59 14:59 Intake Total 100 1050 897 Output Total 0 Balance 100 1050 897 Lab Results Last 24 Hours: Laboratory Results - last 24 hr 11/20/17 11/20/17 11/20/17 Range/Units 18:15 18:15 18:28 WBC 17.96 H (4.0-11.0) K/uL RBC 4.68 (4.50-5.90) M/uL Hgb 15.7 (13.0-17.0) g/dL Hct 45.3 (38.0-50.0) % MCV 96.8 (80.0-98.0) fL MCH 33.5 H (27.0-32.0) pg MCHC 34.7 (31.0-37.0) g/dL RDW Std Deviation 45.3 (28.0-62.0) fl RDW Coeff of Anibal 13 (11.0-15.0) % Plt Count 211 (150-400) K/uL MPV 11.20 (7.40-12.00) fL Neut % (Auto) 89.2 H (48.0-80.0) % Lymph % (Auto) 4.9 L (16.0-40.0) % Garrett % (Auto) 5.7 (0.0-15.0) % Eos % (Auto) 0.1 (0.0-7.0) % Baso % (Auto) 0.1 (0.0-1.5) % Neut # (Auto) 16.0 H (1.4-5.7) K/uL Lymph # (Auto) 0.9 (0.6-2.4) K/uL Garrett # (Auto) 1.0 H (0.0-0.8) K/uL Eos # (Auto) 0.0 (0.0-0.7) K/uL Baso # (Auto) 0.0 (0.0-0.1) K/uL Nucleated RBC % 0.0 /100WBC Nucleated RBCs # 0 K/uL INR 1.07 Lactate (0.20-2.00) mmol/L Sodium 130 L (136-148) mmol/L Potassium 3.6 (3.5-5.1) mmol/L Chloride 92 L (98-107) mmol/L Carbon Dioxide 28.9 (21.0-32.0) mmol/L BUN 15 (7.0-18.0) mg/dL Creatinine 1.3 (0.8-1.3) mg/dL Est Cr Clr Drug Dosing 49.13 mL/min Estimated GFR (MDRD) 53.5 ml/min Glucose 106 (74-106) mg/dL Calcium 9.9 (8.5-10.1) mg/dL Magnesium (1.8-2.4) mg/dL Total Bilirubin 1.5 H (0.2-1.0) mg/dL AST 30 (15-37) IU/L ALT 16 (14-63) IU/L Alkaline Phosphatase 136 H (46-116) U/L Troponin I < 0.050 (0.000-0.056) ng/mL Total Protein 7.6 (6.4-8.2) g/dL Albumin 3.4 (3.4-5.0) g/dL Globulin 4.2 H (2.0-3.5) g/dL Albumin/Globulin Ratio 0.8 L (1.3-2.8) Urine Color Urine Appearance Urine pH (5.0-8.0) Ur Specific [place] (1.001-1.035) Urine Protein (NEGATIVE) mg/dL Urine Glucose (UA) (NEGATIVE) mg/dL Urine Ketones (NEGATIVE) mg/dL Urine Occult Blood (NEGATIVE) Urine Nitrite (NEGATIVE) Urine Bilirubin (NEGATIVE) Urine Ictotest Urine Urobilinogen (<2.0) EU/dL Ur Leukocyte Esterase (NEGATIVE) Urine RBC (0-2/HPF) Urine WBC (0-5/HPF) Ur Epithelial Cells (NONE-FEW) Urine Bacteria (NEGATIVE) Hyaline Casts (0-2/LPF) 11/20/17 11/20/17 11/21/17 Range/Units 19:10 20:03 05:08 WBC 15.54 H (4.0-11.0) K/uL RBC 3.99 L (4.50-5.90) M/uL Hgb 13.4 (13.0-17.0) g/dL Hct 38.5 (38.0-50.0) % MCV 96.5 (80.0-98.0) fL MCH 33.6 H (27.0-32.0) pg MCHC 34.8 (31.0-37.0) g/dL RDW Std Deviation 45.2 (28.0-62.0) fl RDW Coeff of Anibal 13 (11.0-15.0) % Plt Count 226 (150-400) K/uL MPV 11.50 (7.40-12.00) fL Neut % (Auto) 93.2 H (48.0-80.0) % Lymph % (Auto) 5.5 L (16.0-40.0) % Garrett % (Auto) 1.2 (0.0-15.0) % Eos % (Auto) 0.0 (0.0-7.0) % Baso % (Auto) 0.1 (0.0-1.5) % Neut # (Auto) 14.5 H (1.4-5.7) K/uL Lymph # (Auto) 0.9 (0.6-2.4) K/uL Garrett # (Auto) 0.2 (0.0-0.8) K/uL Eos # (Auto) 0.0 (0.0-0.7) K/uL Baso # (Auto) 0.0 (0.0-0.1) K/uL Nucleated RBC % 0.0 /100WBC Nucleated RBCs # 0 K/uL INR Lactate 0.7 (0.20-2.00) mmol/L Sodium (136-148) mmol/L Potassium (3.5-5.1) mmol/L Chloride (98-107) mmol/L Carbon Dioxide (21.0-32.0) mmol/L BUN (7.0-18.0) mg/dL Creatinine (0.8-1.3) mg/dL Est Cr Clr Drug Dosing mL/min Estimated GFR (MDRD) ml/min Glucose (74-106) mg/dL Calcium (8.5-10.1) mg/dL Magnesium (1.8-2.4) mg/dL Total Bilirubin (0.2-1.0) mg/dL AST (15-37) IU/L ALT (14-63) IU/L Alkaline Phosphatase (46-116) U/L Troponin I (0.000-0.056) ng/mL Total Protein (6.4-8.2) g/dL Albumin (3.4-5.0) g/dL Globulin (2.0-3.5) g/dL Albumin/Globulin Ratio (1.3-2.8) Urine Color YELLOW Urine Appearance CLEAR Urine pH 6.0 (5.0-8.0) Ur Specific [place] 1.015 (1.001-1.035) Urine Protein NEGATIVE (NEGATIVE) mg/dL Urine Glucose (UA) NEGATIVE (NEGATIVE) mg/dL Urine Ketones 15 H (NEGATIVE) mg/dL Urine Occult Blood NEGATIVE (NEGATIVE) Urine Nitrite NEGATIVE (NEGATIVE) Urine Bilirubin SMALL H (NEGATIVE) Urine Ictotest NEGATIVE Urine Urobilinogen 0.2 (<2.0) EU/dL Ur Leukocyte Esterase NEGATIVE (NEGATIVE) Urine RBC 0-1 (0-2/HPF) Urine WBC 0-2 (0-5/HPF) Ur Epithelial Cells OCCASIONAL (NONE-FEW) Urine Bacteria FEW (NEGATIVE) Hyaline Casts 10-15 (0-2/LPF) 11/21/17 Range/Units 05:08 WBC (4.0-11.0) K/uL RBC (4.50-5.90) M/uL Hgb (13.0-17.0) g/dL Hct (38.0-50.0) % MCV (80.0-98.0) fL MCH (27.0-32.0) pg MCHC (31.0-37.0) g/dL RDW Std Deviation (28.0-62.0) fl RDW Coeff of Anibal (11.0-15.0) % Plt Count (150-400) K/uL MPV (7.40-12.00) fL Neut % (Auto) (48.0-80.0) % Lymph % (Auto) (16.0-40.0) % Garrett % (Auto) (0.0-15.0) % Eos % (Auto) (0.0-7.0) % Baso % (Auto) (0.0-1.5) % Neut # (Auto) (1.4-5.7) K/uL Lymph # (Auto) (0.6-2.4) K/uL Garrett # (Auto) (0.0-0.8) K/uL Eos # (Auto) (0.0-0.7) K/uL Baso # (Auto) (0.0-0.1) K/uL Nucleated RBC % /100WBC Nucleated RBCs # K/uL INR Lactate (0.20-2.00) mmol/L Sodium 131 L (136-148) mmol/L Potassium 3.9 (3.5-5.1) mmol/L Chloride 99 (98-107) mmol/L Carbon Dioxide 25.9 (21.0-32.0) mmol/L BUN 15 (7.0-18.0) mg/dL Creatinine 1.0 (0.8-1.3) mg/dL Est Cr Clr Drug Dosing 59.85 mL/min Estimated GFR (MDRD) > 60.0 ml/min Glucose 154 H (74-106) mg/dL Calcium 9.2 (8.5-10.1) mg/dL Magnesium 2.0 (1.8-2.4) mg/dL Total Bilirubin (0.2-1.0) mg/dL AST (15-37) IU/L ALT (14-63) IU/L Alkaline Phosphatase (46-116) U/L Troponin I (0.000-0.056) ng/mL Total Protein (6.4-8.2) g/dL Albumin (3.4-5.0) g/dL Globulin (2.0-3.5) g/dL Albumin/Globulin Ratio (1.3-2.8) Urine Color Urine Appearance Urine pH (5.0-8.0) Ur Specific [place] (1.001-1.035) Urine Protein (NEGATIVE) mg/dL Urine Glucose (UA) (NEGATIVE) mg/dL Urine Ketones (NEGATIVE) mg/dL Urine Occult Blood (NEGATIVE) Urine Nitrite (NEGATIVE) Urine Bilirubin (NEGATIVE) Urine Ictotest Urine Urobilinogen (<2.0) EU/dL Ur Leukocyte Esterase (NEGATIVE) Urine RBC (0-2/HPF) Urine WBC (0-5/HPF) Ur Epithelial Cells (NONE-FEW) Urine Bacteria (NEGATIVE) Hyaline Casts (0-2/LPF) Gerald Results Last 24 Hours: Microbiology 11/20/17 19:10 Anaerobic Blood Culture - Final Blood - Arm, Left Med Orders - Current: Current Medications Acetaminophen (Tylenol) 500 mg PO Q4H PRN PRN Reason: Pain (Mild 1-3)/fever Albuterol/Ipratropium (Duoneb 3.0-0.5 Mg/3 Ml) 3 ml NEB Q4HRRT PRN PRN Reason: Wheezing Aspirin (Aspirin) 81 mg PO DAILY [facility] Last Admin: 11/21/17 08:04 Dose: 81 mg Benazepril HCl (Lotensin) 20 mg PO DAILY [facility] Last Admin: 11/21/17 08:00 Dose: 20 mg Bisacodyl (Dulcolax) 5 mg PO DAILY PRN PRN Reason: Constipation Last Admin: 11/21/17 06:12 Dose: 5 mg Clopidogrel Bisulfate (Plavix) 75 mg PO DAILY [facility] Last Admin: 11/21/17 08:03 Dose: 75 mg Cyclobenzaprine HCl (Flexeril) 10 mg PO TID [facility] Last Admin: 11/21/17 13:07 Dose: 10 mg Diltiazem HCl (Cardizem Cd) 120 mg PO DAILY [facility] Last Admin: 11/21/17 08:00 Dose: 120 mg Docusate Sodium (Colace) 100 mg PO BID [facility] Last Admin: 11/21/17 08:04 Dose: 100 mg Enoxaparin Sodium (Lovenox) 40 mg SUBCUT Q24H [facility] Last Admin: 11/21/17 08:06 Dose: 40 mg Hydrochlorothiazide (Hydrochlorothiazide) 12.5 mg PO DAILY [facility] Last Admin: 11/21/17 08:04 Dose: 12.5 mg Cefepime HCl 1 gm/ Premix 50 mls @ 100 mls/hr IV Q8H [facility] Last Admin: 11/21/17 13:07 Dose: 100 mls/hr Potassium Chloride/Sodium Chloride (Normal Saline With 20 Meq Kcl) 1,000 mls @ 150 mls/hr IV ASDIRECTED [facility] Last Admin: 11/21/17 08:06 Dose: 150 mls/hr Azithromycin 500 mg/ Sodium (Chloride) 250 mls @ 250 mls/hr IV Q24H [facility] Last Admin: 11/21/17 00:15 Dose: Not Given Lorazepam (Ativan) 1 mg IVPUSH Q6H PRN PRN Reason: Anxiety Morphine Sulfate (Morphine) 4 mg IVPUSH Q2H PRN PRN Reason: Pain Nicotine (Habitrol) 21 mg TRDERM DAILY [facility] Last Admin: 11/21/17 13:06 Dose: 21 mg Ondansetron HCl (Zofran Odt) 4 mg PO Q4H PRN PRN Reason: nausea, able to take PO Simvastatin (Zocor) 10 mg PO BEDTIME [facility] Temazepam (Restoril) 15 mg PO BEDTIME PRN PRN Reason: Sleep Tramadol HCl (Ultram) 50 mg PO BID [facility] Last Admin: 11/21/17 08:03 Dose: 50 mg Discontinued Medications Albuterol/Ipratropium (Duoneb 3.0-0.5 Mg/3 Ml) 3 ml NEB ONETIME ONE Stop: 11/20/17 18:48 Last Admin: 11/20/17 19:12 Dose: 3 ml Heparin Sodium (Porcine) (Heparin Sodium) 5,000 units SUBCUT Q8H [facility] Last Admin: 11/20/17 23:51 Dose: 5,000 units Sodium Chloride (Normal Saline) 250 mls @ 999 mls/hr IV STAT [facility] Last Admin: 11/20/17 19:08 Dose: 999 mls/hr Ceftriaxone Sodium 1 gm/ (Sodium Chloride) 50 mls @ 100 mls/hr IV ONETIME ONE Stop: 11/20/17 21:46 Last Admin: 11/20/17 22:06 Dose: 100 mls/hr Azithromycin 500 mg/ Sodium (Chloride) 250 mls @ 250 mls/hr IV Q24H [facility] Last Admin: 11/21/17 00:11 Dose: 250 mls/hr Methylprednisolone Sodium Succinate (Solu-Medrol) 125 mg IVPUSH ONETIME ONE Stop: 11/20/17 18:47 Last Admin: 11/20/17 19:07 Dose: 125 mg - Exam General: Alert, Cooperative Lungs: Normal Respiratory Effort, Other (slight coarsening of breath sounds bilaterally) Cardiovascular: Regular Rate (conversant), Regular Rhythm - Problem List & Annotations (1) Pneumonia SNOMED Code(s): 508933604 Code(s): J18.9 - PNEUMONIA, UNSPECIFIED ORGANISM Status: Acute Current Visit: Yes (2) Pneumonia SNOMED Code(s): 004090042 Code(s): J18.9 - PNEUMONIA, UNSPECIFIED ORGANISM Status: Acute Current Visit: Yes (3) COPD (chronic obstructive pulmonary disease) SNOMED Code(s): 26254055 Code(s): J44.9 - CHRONIC OBSTRUCTIVE PULMONARY DISEASE, UNSPECIFIED Status : Acute Current Visit: Yes (4) Confusion SNOMED Code(s): 303989485 Code(s): R41.0 - DISORIENTATION, UNSPECIFIED Status: Acute Current Visit : Yes (5) Leukocytosis SNOMED Code(s): 502743618, 164727276 Code(s): D72.829 - ELEVATED WHITE BLOOD CELL COUNT, UNSPECIFIED Status: Acute Current Visit: Yes - Problem List Review Problem List Initiated/Reviewed/Updated: Yes - My Orders Last 24 Hours: My Active Orders 11/20/17 22:00 Cefepime [Maxipime in D5W 1 GM/50 ML] 1 gm Premix Bag 1 bag IV Q8H 11/20/17 22:41 Oxygen Therapy [RC] PRN VTE/DVT Education [RC] PER UNIT ROUTINE Vital Signs [RC] Q4H Acetaminophen [Tylenol] 500 mg PO Q4H PRN Albuterol/Ipratropium [DuoNeb 3.0-0.5 MG/3 ML] 3 ml NEB Q4HRRT PRN Bisacodyl [Dulcolax] 5 mg PO DAILY PRN LORazepam [Ativan] 1 mg IVPUSH Q6H PRN Ondansetron [Zofran ODT] 4 mg PO Q4H PRN Temazepam [Restoril] 15 mg PO BEDTIME PRN Resuscitation Status Routine 11/20/17 22:45 RT Aerosol Therapy [RC] ASDIRECTED 11/20/17 22:48 Morphine 4 mg IVPUSH Q2H PRN 11/20/17 23:00 NS + KCl 20mEq/L [Normal Saline with 20 mEq KCl] 1,000 ml IV ASDIRECTED 11/20/17 Dinner Regular Diet [DIET] 11/21/17 00:00 Azithromycin [Zithromax] 500 mg Sodium Chloride 0.9% [Normal Saline] 250 ml IV Q24H 11/21/17 00:15 traMADol [Ultram] 50 mg PO BID 11/21/17 06:00 Cyclobenzaprine [Flexeril] 10 mg PO TID 11/21/17 09:00 Aspirin 81 mg PO DAILY Benazepril [Lotensin] 20 mg PO DAILY Clopidogrel [Plavix] 75 mg PO DAILY Diltiazem [Cardizem CD] 120 mg PO DAILY Docusate Sodium [Colace] 100 mg PO BID Enoxaparin [Lovenox] 40 mg SUBCUT Q24H hydroCHLOROthiazide 12.5 mg PO DAILY 11/21/17 12:30 Nicotine [Habitrol] 21 mg TRDERM DAILY 11/21/17 21:00 Simvastatin [Zocor] 10 mg PO BEDTIME 11/22/17 05:11 BASIC METABOLIC PANEL,BMP [CHEM] AM CBC WITH AUTO DIFF [HEME] AM MAGNESIUM [CHEM] AM 11/23/17 05:11 BASIC METABOLIC PANEL,BMP [CHEM] AM CBC WITH AUTO DIFF [HEME] AM MAGNESIUM [CHEM] AM - Assessment Assessment:: 11/21/2017 improving possible discharge tomorrow. Isak Draper MD - Plan Plan:: cxr: hyperexpansion; haziness lower lung ochoa bilaterally I think that he has pneumonia clinically will cover with antibiotics He may have sepsis he had an oxygen saturation on room air earlier today of 89% see orders
[2017-11-21] MEDS: Simvastatin 10 MG Tab PO SCH (20:11)
[2017-11-22] MEDS: Cyclobenzaprine 10 MG Tab PO SCH ×3 (06:04→21:03)
[2017-11-22] MEDS: Cefepime 1 GM in Premix Bag 1 BAG IV SCH ×3 (06:04→21:08)
[2017-11-22 06:05] LABS: CHLORIDE,CL 103 mmol/L (98-107); SODIUM,NA 133 mmol/L (136-148)
[2017-11-22] MEDS: Benazepril 10 MG Tab PO SCH (08:18)
[2017-11-22] MEDS: Diltiazem 120 MG Cap.CD PO SCH (08:18)
[2017-11-22] MEDS: Aspirin 81 MG Tab.Chew PO SCH (08:19)
[2017-11-22] MEDS: Docusate Sodium 100 MG Cap PO SCH ×2 (08:20→21:03)
[2017-11-22] MEDS: Nicotine 21 MG/24 Hr Patch TRDERM SCH (08:20)
[2017-11-22] MEDS: Hydrochlorothiazide 12.5 MG Cap PO SCH (08:21)
[2017-11-22] MEDS: Clopidogrel 75 MG Tab PO SCH (08:22)
[2017-11-22] MEDS: traMADol 50 MG Tab PO SCH ×2 (08:22→21:03)
[2017-11-22] MEDS: Enoxaparin 40 MG/0.4 ML Syringe SUBCUT SCH (08:31)
--- NOTE | 2017-11-22 16:10 | PCM.PN ---
- General Info Date of Service: 11/22/17 Subjective Update: HE feels much better. He ambulated but needed one stand by physical therapy assistant as he seems unsteady. - Patient Data Vitals - Most Recent: Last Vital Signs Temp 98 F 11/22/17 12:00 Pulse 84 11/22/17 12:00 Resp 20 11/22/17 12:00 BP 130/79 11/22/17 12:00 Pulse Ox 92 L 11/22/17 12:00 Weight - Most Recent: 74.843 kg I&O - Last 24 Hours: Intake & Output 11/22/17 11/22/17 11/22/17 06:59 14:59 22:59 Intake Total 1250 730 100 Output Total 450 650 Balance 800 80 100 Lab Results Last 24 Hours: Laboratory Results - last 24 hr 11/22/17 11/22/17 Range/Units 05:10 05:10 WBC 18.97 H (4.0-11.0) K/uL RBC 3.69 L (4.50-5.90) M/uL Hgb 11.9 L (13.0-17.0) g/dL Hct 35.9 L (38.0-50.0) % MCV 97.3 (80.0-98.0) fL MCH 32.2 H (27.0-32.0) pg MCHC 33.1 (31.0-37.0) g/dL RDW Std Deviation 45.9 (28.0-62.0) fl RDW Coeff of Anibal 13 (11.0-15.0) % Plt Count 218 (150-400) K/uL MPV 11.50 (7.40-12.00) fL Neut % (Auto) 82.7 H (48.0-80.0) % Lymph % (Auto) 11.0 L (16.0-40.0) % [place] % (Auto) 6.2 (0.0-15.0) % Eos % (Auto) 0.0 (0.0-7.0) % Baso % (Auto) 0.1 (0.0-1.5) % Neut # (Auto) 15.7 H (1.4-5.7) K/uL Lymph # (Auto) 2.1 (0.6-2.4) K/uL [place] # (Auto) 1.2 H (0.0-0.8) K/uL Eos # (Auto) 0.0 (0.0-0.7) K/uL Baso # (Auto) 0.0 (0.0-0.1) K/uL Nucleated RBC % 0.0 /100WBC Nucleated RBCs # 0 K/uL Sodium 133 L (136-148) mmol/L Potassium 4.4 (3.5-5.1) mmol/L Chloride 103 (98-107) mmol/L Carbon Dioxide 25.5 (21.0-32.0) mmol/L BUN 17 (7.0-18.0) mg/dL Creatinine 0.9 (0.8-1.3) mg/dL Est Cr Clr Drug Dosing 66.50 mL/min Estimated GFR (MDRD) > 60.0 ml/min Glucose 112 H (74-106) mg/dL Calcium 8.9 (8.5-10.1) mg/dL Magnesium 2.0 (1.8-2.4) mg/dL Gerald Results Last 24 Hours: Microbiology 11/20/17 19:10 Aerobic Blood Culture - Preliminary Blood - Arm, Left NO GROWTH AFTER 1 DAY Anaerobic Blood Culture - Final 11/20/17 19:06 Aerobic Blood Culture - Preliminary Blood - Arm, Right NO GROWTH AFTER 1 DAY Anaerobic Blood Culture - Preliminary NO GROWTH AFTER 1 DAY Med Orders - Current: Current Medications Acetaminophen (Tylenol) 500 mg PO Q4H PRN PRN Reason: Pain (Mild 1-3)/fever Albuterol/Ipratropium (Duoneb 3.0-0.5 Mg/3 Ml) 3 ml NEB Q4HRRT PRN PRN Reason: Wheezing Aspirin (Aspirin) 81 mg PO DAILY [facility] Last Admin: 11/22/17 08:19 Dose: 81 mg Benazepril HCl (Lotensin) 20 mg PO DAILY [facility] Last Admin: 11/22/17 08:18 Dose: 20 mg Bisacodyl (Dulcolax) 5 mg PO DAILY PRN PRN Reason: Constipation Last Admin: 11/21/17 06:12 Dose: 5 mg Clopidogrel Bisulfate (Plavix) 75 mg PO DAILY [facility] Last Admin: 11/22/17 08:22 Dose: 75 mg Cyclobenzaprine HCl (Flexeril) 10 mg PO TID [facility] Last Admin: 11/22/17 13:58 Dose: 10 mg Diltiazem HCl (Cardizem Cd) 120 mg PO DAILY [facility] Last Admin: 11/22/17 08:18 Dose: 120 mg Docusate Sodium (Colace) 100 mg PO BID [facility] Last Admin: 11/22/17 08:20 Dose: 100 mg Enoxaparin Sodium (Lovenox) 40 mg SUBCUT Q24H [facility] Last Admin: 11/22/17 08:31 Dose: 40 mg Hydrochlorothiazide (Hydrochlorothiazide) 12.5 mg PO DAILY [facility] Last Admin: 11/22/17 08:21 Dose: 12.5 mg Cefepime HCl 1 gm/ Premix 50 mls @ 100 mls/hr IV Q8H [facility] Last Admin: 11/22/17 13:55 Dose: 100 mls/hr Azithromycin 500 mg/ Sodium (Chloride) 250 mls @ 250 mls/hr IV Q24H [facility] Last Admin: 11/21/17 23:37 Dose: 250 mls/hr Vancomycin HCl 1 gm/ Sodium (Chloride) 250 mls @ 166.667 mls/hr IV Q12H [facility] Last Admin: 11/22/17 12:08 Dose: 166.667 mls/hr Lorazepam (Ativan) 1 mg IVPUSH Q6H PRN PRN Reason: Anxiety Morphine Sulfate (Morphine) 4 mg IVPUSH Q2H PRN PRN Reason: Pain Nicotine (Habitrol) 21 mg TRDERM DAILY [facility] Last Admin: 11/22/17 08:20 Dose: 21 mg Ondansetron HCl (Zofran Odt) 4 mg PO Q4H PRN PRN Reason: nausea, able to take PO Simvastatin (Zocor) 10 mg PO BEDTIME [facility] Last Admin: 11/21/17 20:11 Dose: 10 mg Temazepam (Restoril) 15 mg PO BEDTIME PRN PRN Reason: Sleep Tramadol HCl (Ultram) 50 mg PO BID [facility] Last Admin: 11/22/17 08:22 Dose: 50 mg Vancomycin HCl (Pharmacy To Dose - Vancomycin) 1 dose .XX ASDIRECTED [facility] Discontinued Medications Albuterol/Ipratropium (Duoneb 3.0-0.5 Mg/3 Ml) 3 ml NEB ONETIME ONE Stop: 11/20/17 18:48 Last Admin: 11/20/17 19:12 Dose: 3 ml Heparin Sodium (Porcine) (Heparin Sodium) 5,000 units SUBCUT Q8H [facility] Last Admin: 11/20/17 23:51 Dose: 5,000 units Sodium Chloride (Normal Saline) 250 mls @ 999 mls/hr IV STAT [facility] Last Admin: 11/20/17 19:08 Dose: 999 mls/hr Ceftriaxone Sodium 1 gm/ (Sodium Chloride) 50 mls @ 100 mls/hr IV ONETIME ONE Stop: 11/20/17 21:46 Last Admin: 11/20/17 22:06 Dose: 100 mls/hr Azithromycin 500 mg/ Sodium (Chloride) 250 mls @ 250 mls/hr IV Q24H [facility] Last Admin: 11/21/17 00:11 Dose: 250 mls/hr Potassium Chloride/Sodium Chloride (Normal Saline With 20 Meq Kcl) 1,000 mls @ 150 mls/hr IV ASDIRECTED [facility] Last Admin: 11/21/17 15:20 Dose: 150 mls/hr Methylprednisolone Sodium Succinate (Solu-Medrol) 125 mg IVPUSH ONETIME ONE Stop: 11/20/17 18:47 Last Admin: 11/20/17 19:07 Dose: 125 mg - Exam General: Alert, Cooperative Neck: Supple, Trachea Midline Lungs: Clear to Auscultation, Normal Respiratory Effort Cardiovascular: Regular Rate, Regular Rhythm GI/Abdominal Exam: Soft, Non-Tender Psy/Mental Status: No: Agitated - Problem List & Annotations (1) Pneumonia SNOMED Code(s): 207066413 Code(s): J18.9 - PNEUMONIA, UNSPECIFIED ORGANISM Status: Acute Current Visit: Yes (2) Pneumonia SNOMED Code(s): 798778189 Code(s): J18.9 - PNEUMONIA, UNSPECIFIED ORGANISM Status: Acute Current Visit: Yes (3) COPD (chronic obstructive pulmonary disease) SNOMED Code(s): 26905178 Code(s): J44.9 - CHRONIC OBSTRUCTIVE PULMONARY DISEASE, UNSPECIFIED Status : Acute Current Visit: Yes (4) Confusion SNOMED Code(s): 795809651 Code(s): R41.0 - DISORIENTATION, UNSPECIFIED Status: Acute Current Visit : Yes (5) Leukocytosis SNOMED Code(s): 525051529, 493488195 Code(s): D72.829 - ELEVATED WHITE BLOOD CELL COUNT, UNSPECIFIED Status: Acute Current Visit: Yes (6) Muscular deconditioning SNOMED Code(s): 805533166 Code(s): R29.898 - OT SYMPTOMS AND SIGNS INVOLVING THE MUSCULOSKELETAL SYSTEM Status: Acute Current Visit: Yes (7) Chronic back pain SNOMED Code(s): 970646017 Code(s): M54.9 - DORSALGIA, UNSPECIFIED; G89.29 - OTHER CHRONIC PAIN Status : Acute Current Visit: Yes (8) Compression fracture of vertebral column SNOMED Code(s): 37934800 Code(s): M48.50XA - COLLAPSED VERTEBRA, NEC, SITE UNSP, INIT Status: Acute Current Visit: Yes - Problem List Review Problem List Initiated/Reviewed/Updated: Yes - My Orders Last 24 Hours: My Active Orders 11/21/17 21:00 Simvastatin [Zocor] 10 mg PO BEDTIME 11/22/17 09:35 Admission Status [Patient Status] [ADT] Routine 11/22/17 09:45 Vancomycin Pharmacy to Dose [Pharmacy to Dose - Vancomycin] 1 dose .XX ASDIRECTED Vancomycin [Vancocin] 1 gm Sodium Chloride 0.9% [Normal Saline] 250 ml IV Q12H 11/23/17 05:11 BASIC METABOLIC PANEL,BMP [CHEM] AM CBC WITH AUTO DIFF [HEME] AM MAGNESIUM [CHEM] AM 11/23/17 20:45 VANCOMYCIN TROUGH [CHEM] Routine - Assessment Assessment:: 11/21/2017 improving possible discharge tomorrow. Isak Draper MD - Plan Plan:: cxr: hyperexpansion; haziness lower lung ochoa bilaterally I think that he has pneumonia clinically will cover with antibiotics He may have sepsis he had an oxygen saturation on room air earlier today of 89% see orders Isak Draper MD 11/22/2017 He is improved. his wbc increased slightly we have added vancomycin to his antibiotic regimen PT/OT consults He has expressed willingness to consider assisted living or [facility] for further strengthening if needed at discharge. MD Joe
[2017-11-22] MEDS: Simvastatin 10 MG Tab PO SCH (21:03)
[2017-11-23] MEDS: Azithromycin 500 MG in Sodium Chloride 0.9% 250 ML IV SCH (00:20)
[2017-11-23] MEDS: Cyclobenzaprine 10 MG Tab PO SCH ×3 (05:36→21:33)
[2017-11-23] MEDS: Cefepime 1 GM in Premix Bag 1 BAG IV SCH ×3 (05:41→21:32)
[2017-11-23 07:15] LABS: CHLORIDE,CL 101 mmol/L (98-107); SODIUM,NA 135 mmol/L (136-148)
--- NOTE | 2017-11-23 07:25 | PCM.PN ---
- General Info Date of Service: 11/23/17 Admission Dx/Problem (Free Text): Admission Diagnosis/Problem Admission Diagnosis/Problem Pneumonia Subjective Update: The patient is a 77-year-old gentleman with benign admitted to acute hospitalization on November 20, 2017 secondary to pneumonia. Today, the patient says that he feels better. He has denied any worsening shortness of breath. No fever or chills. The patient lives by himself and therefore has considered rehabilitation in order to return home safely. He reports that he has had more frequent falls. The patient has no other complaints today. Functional Status: Reports: Pain Controlled, Tolerating Diet, Ambulating (With assistance) - Review of Systems General: Reports: No Symptoms HEENT: Reports: No Symptoms Pulmonary: Reports: Shortness of Breath Cardiovascular: Reports: No Symptoms Gastrointestinal: Reports: No Symptoms Genitourinary: Reports: No Symptoms Musculoskeletal: Reports: No Symptoms Skin: Reports: No Symptoms Neurological: Reports: No Symptoms Psychiatric: Reports: No Symptoms - Patient Data Vitals - Most Recent: Last Vital Signs Temp 36.6 C 11/23/17 04:00 Pulse 70 11/23/17 04:00 Resp 17 11/23/17 04:00 BP 149/87 H 11/23/17 04:00 Pulse Ox 91 L 11/23/17 04:00 Weight - Most Recent: 74.843 kg I&O - Last 24 Hours: Intake & Output 11/22/17 11/23/17 11/23/17 22:59 06:59 14:59 Intake Total 550 650 Output Total 425 1250 Balance 125 -600 Lab Results Last 24 Hours: Laboratory Results - last 24 hr 11/23/17 Range/Units 06:45 WBC 10.32 (4.0-11.0) K/uL RBC 3.94 L (4.50-5.90) M/uL Hgb 13.0 (13.0-17.0) g/dL Hct 38.3 (38.0-50.0) % MCV 97.2 (80.0-98.0) fL MCH 33.0 H (27.0-32.0) pg MCHC 33.9 (31.0-37.0) g/dL RDW Std Deviation 45.7 (28.0-62.0) fl RDW Coeff of Anibal 13 (11.0-15.0) % Plt Count 220 (150-400) K/uL MPV 11.10 (7.40-12.00) fL Neut % (Auto) 66.4 (48.0-80.0) % Lymph % (Auto) 24.6 (16.0-40.0) % Mercer % (Auto) 8.4 (0.0-15.0) % Eos % (Auto) 0.5 (0.0-7.0) % Baso % (Auto) 0.1 (0.0-1.5) % Neut # (Auto) 6.9 H (1.4-5.7) K/uL Lymph # (Auto) 2.5 H (0.6-2.4) K/uL Mercer # (Auto) 0.9 H (0.0-0.8) K/uL Eos # (Auto) 0.1 (0.0-0.7) K/uL Baso # (Auto) 0.0 (0.0-0.1) K/uL Nucleated RBC % 0.0 /100WBC Nucleated RBCs # 0 K/uL Gerald Results Last 24 Hours: Microbiology 11/20/17 19:10 Aerobic Blood Culture - Preliminary Blood - Arm, Left NO GROWTH AFTER 2 DAYS Anaerobic Blood Culture - Final 11/20/17 19:06 Aerobic Blood Culture - Preliminary Blood - Arm, Right NO GROWTH AFTER 2 DAYS Anaerobic Blood Culture - Preliminary NO GROWTH AFTER 2 DAYS Med Orders - Current: Current Medications Acetaminophen (Tylenol) 500 mg PO Q4H PRN PRN Reason: Pain (Mild 1-3)/fever Albuterol/Ipratropium (Duoneb 3.0-0.5 Mg/3 Ml) 3 ml NEB Q4HRRT PRN PRN Reason: Wheezing Aspirin (Aspirin) 81 mg PO DAILY [facility] Last Admin: 11/22/17 08:19 Dose: 81 mg Benazepril HCl (Lotensin) 20 mg PO DAILY [facility] Last Admin: 11/22/17 08:18 Dose: 20 mg Bisacodyl (Dulcolax) 5 mg PO DAILY PRN PRN Reason: Constipation Last Admin: 11/21/17 06:12 Dose: 5 mg Clopidogrel Bisulfate (Plavix) 75 mg PO DAILY [facility] Last Admin: 11/22/17 08:22 Dose: 75 mg Cyclobenzaprine HCl (Flexeril) 10 mg PO TID [facility] Last Admin: 11/23/17 05:36 Dose: 10 mg Diltiazem HCl (Cardizem Cd) 120 mg PO DAILY [facility] Last Admin: 11/22/17 08:18 Dose: 120 mg Docusate Sodium (Colace) 100 mg PO BID [facility] Last Admin: 11/22/17 21:03 Dose: 100 mg Enoxaparin Sodium (Lovenox) 40 mg SUBCUT Q24H [facility] Last Admin: 11/22/17 08:31 Dose: 40 mg Hydrochlorothiazide (Hydrochlorothiazide) 12.5 mg PO DAILY [facility] Last Admin: 11/22/17 08:21 Dose: 12.5 mg Cefepime HCl 1 gm/ Premix 50 mls @ 100 mls/hr IV Q8H [facility] Last Admin: 11/23/17 05:41 Dose: 100 mls/hr Azithromycin 500 mg/ Sodium (Chloride) 250 mls @ 250 mls/hr IV Q24H [facility] Last Admin: 11/23/17 00:20 Dose: 250 mls/hr Vancomycin HCl 1 gm/ Sodium (Chloride) 250 mls @ 166.667 mls/hr IV Q12H [facility] Last Admin: 11/22/17 21:52 Dose: 166.667 mls/hr Lorazepam (Ativan) 1 mg IVPUSH Q6H PRN PRN Reason: Anxiety Morphine Sulfate (Morphine) 4 mg IVPUSH Q2H PRN PRN Reason: Pain Nicotine (Habitrol) 21 mg TRDERM DAILY [facility] Last Admin: 11/22/17 08:20 Dose: 21 mg Ondansetron HCl (Zofran Odt) 4 mg PO Q4H PRN PRN Reason: nausea, able to take PO Simvastatin (Zocor) 10 mg PO BEDTIME [facility] Last Admin: 11/22/17 21:03 Dose: 10 mg Temazepam (Restoril) 15 mg PO BEDTIME PRN PRN Reason: Sleep Tramadol HCl (Ultram) 50 mg PO BID [facility] Last Admin: 11/22/17 21:03 Dose: 50 mg Vancomycin HCl (Pharmacy To Dose - Vancomycin) 1 dose .XX ASDIRECTED [facility] Discontinued Medications Albuterol/Ipratropium (Duoneb 3.0-0.5 Mg/3 Ml) 3 ml NEB ONETIME ONE Stop: 11/20/17 18:48 Last Admin: 11/20/17 19:12 Dose: 3 ml Heparin Sodium (Porcine) (Heparin Sodium) 5,000 units SUBCUT Q8H [facility] Last Admin: 11/20/17 23:51 Dose: 5,000 units Sodium Chloride (Normal Saline) 250 mls @ 999 mls/hr IV STAT [facility] Last Admin: 11/20/17 19:08 Dose: 999 mls/hr Ceftriaxone Sodium 1 gm/ (Sodium Chloride) 50 mls @ 100 mls/hr IV ONETIME ONE Stop: 11/20/17 21:46 Last Admin: 11/20/17 22:06 Dose: 100 mls/hr Azithromycin 500 mg/ Sodium (Chloride) 250 mls @ 250 mls/hr IV Q24H [facility] Last Admin: 11/21/17 00:11 Dose: 250 mls/hr Potassium Chloride/Sodium Chloride (Normal Saline With 20 Meq Kcl) 1,000 mls @ 150 mls/hr IV ASDIRECTED [facility] Last Admin: 11/21/17 15:20 Dose: 150 mls/hr Methylprednisolone Sodium Succinate (Solu-Medrol) 125 mg IVPUSH ONETIME ONE Stop: 11/20/17 18:47 Last Admin: 11/20/17 19:07 Dose: 125 mg - Exam Quality Assessment: No: Supplemental Oxygen General: Alert, Oriented, Cooperative, No Acute Distress HEENT: Pupils Equal, Pupils Reactive. No: Scleral Icterus Neck: Supple, Trachea Midline, No Thyromegaly. No: Lymphadenopathy Lungs: Rales (Bibasilar) Cardiovascular: Regular Rate, Regular Rhythm, No Murmurs GI/Abdominal Exam: Normal Bowel Sounds, Soft, Non-Tender, No Distention (Male) Exam: Deferred Back Exam: Normal Inspection, Full Range of Motion Extremities: Normal Inspection, Normal Range of Motion, No Pedal Edema Skin: Warm, Dry, Intact Neurological: No New Focal Deficit Psy/Mental Status: Alert, Normal Affect, Normal Mood - Problem List & Annotations (1) COPD (chronic obstructive pulmonary disease) SNOMED Code(s): 97442025 Code(s): J44.9 - CHRONIC OBSTRUCTIVE PULMONARY DISEASE, UNSPECIFIED Status : Acute Current Visit: Yes (2) Tobacco abuse SNOMED Code(s): 043538131 Code(s): Z72.0 - TOBACCO USE Status: Acute Current Visit: Yes (3) Chronic back pain SNOMED Code(s): 165110507 Code(s): M54.9 - DORSALGIA, UNSPECIFIED; G89.29 - OTHER CHRONIC PAIN Status : Chronic Priority: Medium Current Visit: Yes Qualifiers: Back pain location: thoracic back pain Back pain laterality: bilateral Qualified Code(s): M54.6 - Pain in thoracic spine; G89.29 - Other chronic pain (4) Muscular deconditioning SNOMED Code(s): 617051181 Code(s): R29.898 - [facility] SYMPTOMS AND SIGNS INVOLVING THE MUSCULOSKELETAL SYSTEM Status: Chronic Priority: Medium Current Visit: Yes (5) Pneumonia SNOMED Code(s): 874410872 Code(s): J18.9 - PNEUMONIA, UNSPECIFIED ORGANISM Status: Acute Priority: High Current Visit: Yes Qualifiers: Pneumonia type: due to unspecified organism Laterality: bilateral Lung location: lower lobe of lung Qualified Code(s): J18.1 - Lobar pneumonia, unspecified organism - Problem List Review Problem List Initiated/Reviewed/Updated: Yes - Assessment Assessment:: 11/21/2017 improving possible discharge tomorrow. Isak Draper MD - Plan Plan:: The patient is a 77-year-old gentleman who clinically has pneumonia. His previous stress x-ray does not show any signs or symptoms of pneumonia. However , I expect that with fluid resuscitation that this has likely become more prominent. The patient will be continued on his current broad-spectrum antibiotics. I ordered chest x-ray for the morning. The patient's leukocytosis has resolved. The patient will have a CBC and a metabolic panel in the morning. He had been hyponatremic as well as clinically dehydrated and his sodium level has almost normalized. The patient has hyponatremia likely secondary to his underlying pulmonary issues and this is chronic in nature. The patient has been encouraged to ambulate. The patient has been strongly counseled with regards to smoking cessation. Should be appropriate for discharge in 1-2 days. The patient may need to have placement at skilled facility in order for physical therapy to improve his physical condition prior to transitioning home. Patient has had more frequent falls and skilled facility would be appropriate as the patient does live alone.
[2017-11-23] MEDS: Aspirin 81 MG Tab.Chew PO SCH (08:32)
[2017-11-23] MEDS: traMADol 50 MG Tab PO SCH ×2 (08:32→21:33)
[2017-11-23] MEDS: Docusate Sodium 100 MG Cap PO SCH ×2 (08:32→21:33)
[2017-11-23] MEDS: Diltiazem 120 MG Cap.CD PO SCH (08:32)
[2017-11-23] MEDS: Hydrochlorothiazide 12.5 MG Cap PO SCH (08:33)
[2017-11-23] MEDS: Clopidogrel 75 MG Tab PO SCH (08:33)
[2017-11-23] MEDS: Benazepril 10 MG Tab PO SCH (08:34)
[2017-11-23] MEDS: Nicotine 21 MG/24 Hr Patch TRDERM SCH (08:35)
[2017-11-23] MEDS: Enoxaparin 40 MG/0.4 ML Syringe SUBCUT SCH (08:35)
[2017-11-23] MEDS: Simvastatin 10 MG Tab PO SCH (21:33)
[2017-11-24] MEDS: Azithromycin 500 MG in Sodium Chloride 0.9% 250 ML IV SCH (00:41)
[2017-11-24] MEDS: Cyclobenzaprine 10 MG Tab PO SCH ×2 (06:43→14:32)
[2017-11-24] MEDS: Cefepime 1 GM in Premix Bag 1 BAG IV SCH ×2 (06:46→14:32)
[2017-11-24 07:04] LABS: CHLORIDE,CL 101 mmol/L (98-107); SODIUM,NA 135 mmol/L (136-148)
[2017-11-24] MEDS: Docusate Sodium 100 MG Cap PO SCH ×2 (08:02→21:53)
[2017-11-24] MEDS: Diltiazem 120 MG Cap.CD PO SCH (08:02)
[2017-11-24] MEDS: Aspirin 81 MG Tab.Chew PO SCH (08:02)
[2017-11-24] MEDS: Clopidogrel 75 MG Tab PO SCH (08:03)
[2017-11-24] MEDS: Benazepril 10 MG Tab PO SCH (08:03)
[2017-11-24] MEDS: traMADol 50 MG Tab PO SCH ×2 (08:03→21:53)
[2017-11-24] MEDS: Hydrochlorothiazide 12.5 MG Cap PO SCH (08:03)
[2017-11-24] MEDS: Nicotine 21 MG/24 Hr Patch TRDERM SCH (08:05)
[2017-11-24] MEDS: Enoxaparin 40 MG/0.4 ML Syringe SUBCUT SCH (08:07)
--- NOTE | 2017-11-24 09:42 | PCM.PN ---
- General Info Date of Service: 11/24/17 Admission Dx/Problem (Free Text): The patient is a 77-year-old gentleman who was admitted secondary to acute hospitalization on November 19, 2017. This is a concern for pneumonia. Patient clinically had pneumonia. The patient today says that his breathing is improved somewhat although he still has a cough and has been coughing up small amounts of phlegm and mucus. The patient has denied any fever. He's had no nausea or vomiting associated with this. The patient says that he does not feel like he is okay to go home today. Subjective Update: The patient is a 77-year-old gentleman with benign admitted to acute hospitalization on November 20, 2017 secondary to pneumonia. Today, the patient says that he feels better. He has denied any worsening shortness of breath. No fever or chills. The patient lives by himself and therefore has considered rehabilitation in order to return home safely. He reports that he has had more frequent falls. The patient has no other complaints today. Functional Status: Reports: Pain Controlled - Review of Systems General: Reports: Weakness, Fatigue HEENT: Reports: No Symptoms Pulmonary: Reports: Shortness of Breath, Cough Cardiovascular: Reports: No Symptoms Gastrointestinal: Reports: No Symptoms Genitourinary: Reports: No Symptoms Musculoskeletal: Reports: No Symptoms Skin: Reports: No Symptoms Neurological: Reports: No Symptoms Psychiatric: Reports: No Symptoms - Patient Data Vitals - Most Recent: Last Vital Signs Temp 36.8 C 11/24/17 08:00 Pulse 98 11/24/17 08:02 Resp 13 11/24/17 08:00 BP 135/84 11/24/17 08:03 Pulse Ox 92 L 11/24/17 08:00 Weight - Most Recent: 74.843 kg I&O - Last 24 Hours: Intake & Output 11/23/17 11/24/17 11/24/17 22:59 06:59 14:59 Intake Total 806 640 Output Total 1400 1435 Balance -594 795 Lab Results Last 24 Hours: Laboratory Results - last 24 hr 11/23/17 11/24/17 11/24/17 Range/Units 20:48 05:56 05:56 WBC 9.33 (4.0-11.0) K/uL RBC 4.07 L (4.50-5.90) M/uL Hgb 13.4 (13.0-17.0) g/dL Hct 39.3 (38.0-50.0) % MCV 96.6 (80.0-98.0) fL MCH 32.9 H (27.0-32.0) pg MCHC 34.1 (31.0-37.0) g/dL RDW Std Deviation 45.3 (28.0-62.0) fl RDW Coeff of Anibal 13 (11.0-15.0) % Plt Count 240 (150-400) K/uL MPV 11.30 (7.40-12.00) fL Neut % (Auto) 64.9 (48.0-80.0) % Lymph % (Auto) 24.9 (16.0-40.0) % Daggett % (Auto) 9.1 (0.0-15.0) % Eos % (Auto) 1.0 (0.0-7.0) % Baso % (Auto) 0.1 (0.0-1.5) % Neut # (Auto) 6.1 H (1.4-5.7) K/uL Lymph # (Auto) 2.3 (0.6-2.4) K/uL Daggett # (Auto) 0.9 H (0.0-0.8) K/uL Eos # (Auto) 0.1 (0.0-0.7) K/uL Baso # (Auto) 0.0 (0.0-0.1) K/uL Nucleated RBC % 0.0 /100WBC Nucleated RBCs # 0 K/uL Sodium 135 L (136-148) mmol/L Potassium 3.8 (3.5-5.1) mmol/L Chloride 101 (98-107) mmol/L Carbon Dioxide 27.1 (21.0-32.0) mmol/L BUN 10 (7.0-18.0) mg/dL Creatinine 0.9 (0.8-1.3) mg/dL Est Cr Clr Drug Dosing 66.50 mL/min Estimated GFR (MDRD) > 60.0 ml/min Glucose 94 (74-106) mg/dL Calcium 9.0 (8.5-10.1) mg/dL Phosphorus 3.3 (2.6-4.7) mg/dL Magnesium 1.8 (1.8-2.4) mg/dL Vancomycin Trough 15.9 H (5.0-10.0) ug/mL Gerald Results Last 24 Hours: Microbiology 11/20/17 19:10 Aerobic Blood Culture - Preliminary Blood - Arm, Left NO GROWTH AFTER 3 DAYS Anaerobic Blood Culture - Final 11/20/17 19:06 Aerobic Blood Culture - Preliminary Blood - Arm, Right NO GROWTH AFTER 3 DAYS Anaerobic Blood Culture - Preliminary NO GROWTH AFTER 3 DAYS Med Orders - Current: Current Medications Acetaminophen (Tylenol) 500 mg PO Q4H PRN PRN Reason: Pain (Mild 1-3)/fever Albuterol/Ipratropium (Duoneb 3.0-0.5 Mg/3 Ml) 3 ml NEB Q4HRRT PRN PRN Reason: Wheezing Aspirin (Aspirin) 81 mg PO DAILY [facility] Last Admin: 11/24/17 08:02 Dose: 81 mg Benazepril HCl (Lotensin) 20 mg PO DAILY [facility] Last Admin: 11/24/17 08:03 Dose: 20 mg Bisacodyl (Dulcolax) 5 mg PO DAILY PRN PRN Reason: Constipation Last Admin: 11/21/17 06:12 Dose: 5 mg Clopidogrel Bisulfate (Plavix) 75 mg PO DAILY [facility] Last Admin: 11/24/17 08:03 Dose: 75 mg Cyclobenzaprine HCl (Flexeril) 10 mg PO TID [facility] Last Admin: 11/24/17 06:43 Dose: 10 mg Diltiazem HCl (Cardizem Cd) 120 mg PO DAILY [facility] Last Admin: 11/24/17 08:02 Dose: 120 mg Docusate Sodium (Colace) 100 mg PO BID [facility] Last Admin: 11/24/17 08:02 Dose: 100 mg Enoxaparin Sodium (Lovenox) 40 mg SUBCUT Q24H [facility] Last Admin: 11/24/17 08:07 Dose: 40 mg Hydrochlorothiazide (Hydrochlorothiazide) 12.5 mg PO DAILY [facility] Last Admin: 11/24/17 08:03 Dose: 12.5 mg Cefepime HCl 1 gm/ Premix 50 mls @ 100 mls/hr IV Q8H [facility] Last Admin: 11/24/17 06:46 Dose: 100 mls/hr Azithromycin 500 mg/ Sodium (Chloride) 250 mls @ 250 mls/hr IV Q24H [facility] Last Admin: 11/24/17 00:41 Dose: 250 mls/hr Vancomycin HCl 1 gm/ Sodium (Chloride) 250 mls @ 166.667 mls/hr IV Q12H [facility] Last Admin: 11/23/17 22:30 Dose: 166.667 mls/hr Lorazepam (Ativan) 1 mg IVPUSH Q6H PRN PRN Reason: Anxiety Morphine Sulfate (Morphine) 4 mg IVPUSH Q2H PRN PRN Reason: Pain Nicotine (Habitrol) 21 mg TRDERM DAILY [facility] Last Admin: 11/24/17 08:05 Dose: 21 mg Ondansetron HCl (Zofran Odt) 4 mg PO Q4H PRN PRN Reason: nausea, able to take PO Simvastatin (Zocor) 10 mg PO BEDTIME [facility] Last Admin: 11/23/17 21:33 Dose: 10 mg Temazepam (Restoril) 15 mg PO BEDTIME PRN PRN Reason: Sleep Tramadol HCl (Ultram) 50 mg PO BID [facility] Last Admin: 11/24/17 08:03 Dose: 50 mg Vancomycin HCl (Pharmacy To Dose - Vancomycin) 1 dose .XX ASDIRECTED [facility] Discontinued Medications Albuterol/Ipratropium (Duoneb 3.0-0.5 Mg/3 Ml) 3 ml NEB ONETIME ONE Stop: 11/20/17 18:48 Last Admin: 11/20/17 19:12 Dose: 3 ml Heparin Sodium (Porcine) (Heparin Sodium) 5,000 units SUBCUT Q8H [facility] Last Admin: 11/20/17 23:51 Dose: 5,000 units Sodium Chloride (Normal Saline) 250 mls @ 999 mls/hr IV STAT [facility] Last Admin: 11/20/17 19:08 Dose: 999 mls/hr Ceftriaxone Sodium 1 gm/ (Sodium Chloride) 50 mls @ 100 mls/hr IV ONETIME ONE Stop: 11/20/17 21:46 Last Admin: 11/20/17 22:06 Dose: 100 mls/hr Azithromycin 500 mg/ Sodium (Chloride) 250 mls @ 250 mls/hr IV Q24H [facility] Last Admin: 11/21/17 00:11 Dose: 250 mls/hr Potassium Chloride/Sodium Chloride (Normal Saline With 20 Meq Kcl) 1,000 mls @ 150 mls/hr IV ASDIRECTED [facility] Last Admin: 11/21/17 15:20 Dose: 150 mls/hr Methylprednisolone Sodium Succinate (Solu-Medrol) 125 mg IVPUSH ONETIME ONE Stop: 11/20/17 18:47 Last Admin: 11/20/17 19:07 Dose: 125 mg - Exam Quality Assessment: No: Supplemental Oxygen General: Alert, Oriented, Cooperative HEENT: Pupils Equal, Pupils Reactive Neck: Supple, Trachea Midline, No Thyromegaly Lungs: Decreased Breath Sounds (Bibasilar), Rales. No: Clear to Auscultation Cardiovascular: Regular Rate, Regular Rhythm GI/Abdominal Exam: Normal Bowel Sounds, Soft, Non-Tender, No Distention (Male) Exam: Deferred Back Exam: Normal Inspection Extremities: Normal Inspection, Normal Range of Motion, No Pedal Edema Skin: Warm, Dry, Intact Neurological: No New Focal Deficit Psy/Mental Status: Alert, Normal Affect, Normal Mood - Problem List & Annotations (1) COPD (chronic obstructive pulmonary disease) SNOMED Code(s): 03503559 Code(s): J44.9 - CHRONIC OBSTRUCTIVE PULMONARY DISEASE, UNSPECIFIED Status : Acute Priority: Medium Current Visit: Yes Qualifiers: COPD type: emphysema Emphysema type: unspecified Qualified Code(s): J43.9 - Emphysema, unspecified (2) Tobacco abuse SNOMED Code(s): 401822792 Code(s): Z72.0 - TOBACCO USE Status: Acute Priority: High Current Visit : Yes (3) Chronic back pain SNOMED Code(s): 301373576 Code(s): M54.9 - DORSALGIA, UNSPECIFIED; G89.29 - OTHER CHRONIC PAIN Status : Chronic Priority: Medium Current Visit: Yes Qualifiers: Back pain location: thoracic back pain Back pain laterality: bilateral Qualified Code(s): M54.6 - Pain in thoracic spine; G89.29 - Other chronic pain (4) Muscular deconditioning SNOMED Code(s): 568123052 Code(s): R29.898 - OTH SYMPTOMS AND SIGNS INVOLVING THE MUSCULOSKELETAL SYSTEM Status: Chronic Priority: Medium Current Visit: Yes (5) Pneumonia SNOMED Code(s): 619739922 Code(s): J18.9 - PNEUMONIA, UNSPECIFIED ORGANISM Status: Acute Priority: High Current Visit: Yes Qualifiers: Pneumonia type: due to unspecified organism Laterality: bilateral Lung location: lower lobe of lung Qualified Code(s): J18.1 - Lobar pneumonia, unspecified organism - Problem List Review Problem List Initiated/Reviewed/Updated: Yes - Assessment Assessment:: 11/21/2017 improving possible discharge tomorrow. Isak Draper MD - Plan Plan:: The patient is a 77-year-old gentleman who clinically has pneumonia. He is doing somewhat better today. The patient will likely need to have placement is weak. The patient's leukocytosis has resolved. Regardless, we'll continue with his broad-spectrum antibiotics. The patient's previously noted hyponatremia has stabilized. I've ordered a repeat of metabolic panel as well as CBC in the morning. Physical therapy will continue for the patient. He should be appropriate for discharge to a skilled facility in 1-2 days. This is being done in order to help the patient safely transition to home. The patient has been encouraged to remain a nonsmoker.
[2017-11-24] MEDS: Simvastatin 10 MG Tab PO SCH (21:53)
[2017-11-25] MEDS: Azithromycin 500 MG in Sodium Chloride 0.9% 250 ML IV SCH (01:25)
[2017-11-25] MEDS ORDERED: Cefepime 1 GM in Premix Bag 1 BAG IV ONE (01:37)
[2017-11-25] MEDS: Cyclobenzaprine 10 MG Tab PO SCH ×2 (01:40→06:19)
[2017-11-25] MEDS: Cefepime 1 GM in Premix Bag 1 BAG IV SCH (01:54)
--- NOTE | 2017-11-25 08:25 | PCM.DCSUM1 ---
<Wiley Horton - Last Filed: 11/25/17 08:25> Discharge Summary - Hospital Course Free Text/Narrative:: Admission date: 11/20/2017 Discharge date: 11/25/2017 Admission diagnosis: #1. Ambulatory dysfunction #2. Shortness of breath secondary to COPD #3. Acute on chronic back pain #4. Leukocytosis #5. Confusion Discharge diagnosis: #1. Ambulatory dysfunction - improved #2. Shortness of breath - resolved #3. Chronic back pain #4. Leukocytosis - resolved #5. Confusion - resolved Hospital course: 77M with a history of COPD, chronic back pain secondary to spinal stenosis/foraminal impingement that presented to the ER on 11/20 with his daughter with a chief complaint of "feeling out of it". Patient reportedly had a fall this past September where he suffered rib fracture and worsening of his back pain and since then had been having issues with ambulation and overall feeling weak. Attending physician treated the patient for pneumonia and was evaluated by PT. He was offered a cane or walker for his ambulatory dysfunction but the patient declined. Patients physical ability did improve over his hospital stay. I was able to evaluate him only for the last day of his hospital stay but he was able to get out of bed and walk without difficulty. He complained of ongoing pain which he describes as back spasms that he has been taking Flexeril for. He has vertebroplasty planned in the future. He was given a pamphlet for visiting angels by social work that can help him around the house. The patient stated that hes able to cook and clean for himself. He is able to perform ADL.s He is to follow up with his PCP. - Discharge Data Discharge Date: 11/25/17 Discharge Disposition: Home, Self-Care 01 Condition: Fair - Patient Summary/Data Consults: Consultations 11/22/17 16:10 Consult to Physical Therapy [PT Evaluation and Treatment] [CONS] Routine OT Evaluation and Treatment [CONS] Routine - Patient Instructions Diet: Usual Diet as Tolerated Activity: As Tolerated Notify Provider of: Fever, Increased Pain, Swelling and Redness, Drainage, Nausea and/or Vomiting - Discharge Plan *PRESCRIPTION DRUG MONITORING PROGRAM REVIEWED*: Not Applicable Home Medications: Home Meds Aspirin 81 mg PO DAILY 09/04/17 [History] Benazepril/Hydrochlorothiazide [Benazepril-Hctz 20-12.5 mg Tab] 12.5 mg PO DAILY 09/04/17 [History] Ca Carbonate/Vitamin D3/Vit K [Calcium + D Soft Chewable Tab] 1 tab PO DAILY 06/19 [History] Clopidogrel [Plavix] 75 mg PO DAILY 09/04/17 [History] Diltiazem [Cardizem CD] 120 mg PO DAILY 09/04/17 [History] Simvastatin [Zocor] 10 mg PO BEDTIME 09/04/17 [History] Cyclobenzaprine [Flexeril] 10 mg PO TID 11/20/17 [History] Metaxalone 800 mg PO 11/20/17 [History] traMADol HCl [Tramadol HCl] 50 mg PO BID 11/20/17 [History] Patient Handouts: Community-Acquired Pneumonia, Adult Forms: ED Department Discharge Referrals: Korey Canseco MD [Physician] - 12/09/17 2:30 pm PCP,None [Primary Care Provider] - - Patient Data Vitals - Most Recent: Last Vital Signs Temp 36.6 C 11/25/17 04:00 Pulse 66 11/25/17 04:00 Resp 17 11/25/17 04:00 BP 118/68 11/25/17 04:00 Pulse Ox 96 11/25/17 04:00 Weight - Most Recent: 74.843 kg I&O - Last 24 hours: Intake & Output 11/24/17 11/25/17 11/25/17 22:59 06:59 14:59 Intake Total 772 370 Output Total 1650 620 Balance -878 -250 TRACY Results - Last 24 hrs: Microbiology 11/20/17 19:10 Aerobic Blood Culture - Preliminary Blood - Arm, Left NO GROWTH AFTER 4 DAYS Anaerobic Blood Culture - Final 11/20/17 19:06 Aerobic Blood Culture - Preliminary Blood - Arm, Right NO GROWTH AFTER 4 DAYS Anaerobic Blood Culture - Preliminary NO GROWTH AFTER 4 DAYS Med Orders - Current: Current Medications Acetaminophen (Tylenol) 500 mg PO Q4H PRN PRN Reason: Pain (Mild 1-3)/fever Albuterol/Ipratropium (Duoneb 3.0-0.5 Mg/3 Ml) 3 ml NEB Q4HRRT PRN PRN Reason: Wheezing Aspirin (Aspirin) 81 mg PO DAILY [facility] Last Admin: 11/24/17 08:02 Dose: 81 mg Benazepril HCl (Lotensin) 20 mg PO DAILY [facility] Last Admin: 11/24/17 08:03 Dose: 20 mg Bisacodyl (Dulcolax) 5 mg PO DAILY PRN PRN Reason: Constipation Last Admin: 11/21/17 06:12 Dose: 5 mg Clopidogrel Bisulfate (Plavix) 75 mg PO DAILY [facility] Last Admin: 11/24/17 08:03 Dose: 75 mg Cyclobenzaprine HCl (Flexeril) 10 mg PO TID [facility] Last Admin: 11/25/17 06:19 Dose: 10 mg Diltiazem HCl (Cardizem Cd) 120 mg PO DAILY [facility] Last Admin: 11/24/17 08:02 Dose: 120 mg Docusate Sodium (Colace) 100 mg PO BID [facility] Last Admin: 11/24/17 21:53 Dose: 100 mg Enoxaparin Sodium (Lovenox) 40 mg SUBCUT Q24H [facility] Last Admin: 11/24/17 08:07 Dose: 40 mg Hydrochlorothiazide (Hydrochlorothiazide) 12.5 mg PO DAILY [facility] Last Admin: 11/24/17 08:03 Dose: 12.5 mg Azithromycin 500 mg/ Sodium (Chloride) 250 mls @ 250 mls/hr IV Q24H [facility] Last Admin: 11/25/17 01:25 Dose: 250 mls/hr Cefepime HCl 1 gm/ Premix 50 mls @ 100 mls/hr IV Q8H [facility] Vancomycin HCl 1 gm/ Sodium (Chloride) 250 mls @ 166.667 mls/hr IV Q12H [facility] Lorazepam (Ativan) 1 mg IVPUSH Q6H PRN PRN Reason: Anxiety Morphine Sulfate (Morphine) 4 mg IVPUSH Q2H PRN PRN Reason: Pain Nicotine (Habitrol) 21 mg TRDERM DAILY [facility] Last Admin: 11/24/17 08:05 Dose: 21 mg Ondansetron HCl (Zofran Odt) 4 mg PO Q4H PRN PRN Reason: nausea, able to take PO Simvastatin (Zocor) 10 mg PO BEDTIME [facility] Last Admin: 11/24/17 21:53 Dose: 10 mg Temazepam (Restoril) 15 mg PO BEDTIME PRN PRN Reason: Sleep Tramadol HCl (Ultram) 50 mg PO BID [facility] Last Admin: 11/24/17 21:53 Dose: 50 mg Vancomycin HCl (Pharmacy To Dose - Vancomycin) 1 dose .XX ASDIRECTED [facility] Discontinued Medications Albuterol/Ipratropium (Duoneb 3.0-0.5 Mg/3 Ml) 3 ml NEB ONETIME ONE Stop: 11/20/17 18:48 Last Admin: 11/20/17 19:12 Dose: 3 ml Heparin Sodium (Porcine) (Heparin Sodium) 5,000 units SUBCUT Q8H [facility] Last Admin: 11/20/17 23:51 Dose: 5,000 units Sodium Chloride (Normal Saline) 250 mls @ 999 mls/hr IV STAT [facility] Last Admin: 11/20/17 19:08 Dose: 999 mls/hr Ceftriaxone Sodium 1 gm/ (Sodium Chloride) 50 mls @ 100 mls/hr IV ONETIME ONE Stop: 11/20/17 21:46 Last Admin: 11/20/17 22:06 Dose: 100 mls/hr Azithromycin 500 mg/ Sodium (Chloride) 250 mls @ 250 mls/hr IV Q24H [facility] Last Admin: 11/21/17 00:11 Dose: 250 mls/hr Cefepime HCl 1 gm/ Premix 50 mls @ 100 mls/hr IV Q8H [facility] Last Admin: 11/25/17 01:54 Dose: 100 mls/hr Potassium Chloride/Sodium Chloride (Normal Saline With 20 Meq Kcl) 1,000 mls @ 150 mls/hr IV ASDIRECTED [facility] Last Admin: 11/21/17 15:20 Dose: 150 mls/hr Vancomycin HCl 1 gm/ Sodium (Chloride) 250 mls @ 166.667 mls/hr IV Q12H [facility] Last Admin: 11/25/17 00:50 Dose: 166.667 mls/hr Cefepime HCl 1 gm/ Premix 50 mls @ 100 mls/hr IV ONETIME ONE Stop: 11/25/17 02:06 Last Admin: 11/25/17 02:04 Dose: Not Given Vancomycin HCl 1 gm/ Sodium (Chloride) 250 mls @ 166 mls/hr IV ONETIME ONE Stop: 11/25/17 03:07 Last Admin: 11/25/17 02:04 Dose: Not Given Methylprednisolone Sodium Succinate (Solu-Medrol) 125 mg IVPUSH ONETIME ONE Stop: 11/20/17 18:47 Last Admin: 11/20/17 19:07 Dose: 125 mg <Garo Mejia - Last Filed: 11/26/17 11:48> Discharge Summary - Hospital Course HPI Initial Comments: The patient is a 77-year-old gentleman who had been admitted secondary to shortness of breath with underlying COPD. Patient does have a history of chronic back pain associated with spinal stenosis and foraminal impingement. The patient's previously noted symptoms have resolved. Patient is able to perform his ADLs. I have examined the patient independently of medical registrar. I agree with the findings and plan of care. Please see orders. - Discharge Diagnosis/Problem(s) (1) COPD (chronic obstructive pulmonary disease) SNOMED Code(s): 89646262 ICD Code: J44.9 - CHRONIC OBSTRUCTIVE PULMONARY DISEASE, UNSPECIFIED Status : Acute Priority: Medium Qualifiers: COPD type: emphysema Emphysema type: unspecified Qualified Code(s): J43.9 - Emphysema, unspecified (2) Tobacco abuse SNOMED Code(s): 665658193 ICD Code: Z72.0 - TOBACCO USE Status: Acute Priority: High (3) Chronic back pain SNOMED Code(s): 105124377 ICD Code: M54.9 - DORSALGIA, UNSPECIFIED; G89.29 - OTHER CHRONIC PAIN Status: Chronic Priority: Medium Qualifiers: Back pain location: thoracic back pain Back pain laterality: bilateral Qualified Code(s): M54.6 - Pain in thoracic spine; G89.29 - Other chronic pain (4) Muscular deconditioning SNOMED Code(s): 502505175 ICD Code: R29.898 - OTH SYMPTOMS AND SIGNS INVOLVING THE MUSCULOSKELETAL SYSTEM Status: Chronic Priority: Medium (5) Pneumonia SNOMED Code(s): 754625178 ICD Code: J18.9 - PNEUMONIA, UNSPECIFIED ORGANISM Status: Acute Priority : High Qualifiers: Pneumonia type: due to unspecified organism Laterality: bilateral Lung location: lower lobe of lung Qualified Code(s): J18.1 - Lobar pneumonia, unspecified organism - Patient Summary/Data Consults: Consultations 11/22/17 16:10 Consult to Physical Therapy [PT Evaluation and Treatment] [CONS] Routine OT Evaluation and Treatment [CONS] Routine - Patient Data Vitals - Most Recent: Last Vital Signs Temp 36.0 C 11/25/17 08:00 Pulse 83 11/25/17 09:01 Resp 16 11/25/17 08:00 BP 135/80 11/25/17 09:01 Pulse Ox 93 L 11/25/17 08:00 TRACY Results - Last 24 hrs: Microbiology 11/20/17 19:10 Aerobic Blood Culture - Final Blood - Arm, Left NO GROWTH AFTER 5 DAYS Anaerobic Blood Culture - Final 11/20/17 19:06 Aerobic Blood Culture - Final Blood - Arm, Right NO GROWTH AFTER 5 DAYS Anaerobic Blood Culture - Final NO GROWTH AFTER 5 DAYS Med Orders - Current: Current Medications Discontinued Medications Acetaminophen (Tylenol) 500 mg PO Q4H PRN PRN Reason: Pain (Mild 1-3)/fever Albuterol/Ipratropium (Duoneb 3.0-0.5 Mg/3 Ml) 3 ml NEB ONETIME ONE Stop: 11/20/17 18:48 Last Admin: 11/20/17 19:12 Dose: 3 ml Albuterol/Ipratropium (Duoneb 3.0-0.5 Mg/3 Ml) 3 ml NEB Q4HRRT PRN PRN Reason: Wheezing Aspirin (Aspirin) 81 mg PO DAILY [facility] Last Admin: 11/25/17 09:01 Dose: 81 mg Benazepril HCl (Lotensin) 20 mg PO DAILY [facility] Last Admin: 11/25/17 09:00 Dose: 20 mg Bisacodyl (Dulcolax) 5 mg PO DAILY PRN PRN Reason: Constipation Last Admin: 11/21/17 06:12 Dose: 5 mg Clopidogrel Bisulfate (Plavix) 75 mg PO DAILY [facility] Last Admin: 11/25/17 09:00 Dose: 75 mg Cyclobenzaprine HCl (Flexeril) 10 mg PO TID [facility] Last Admin: 11/25/17 06:19 Dose: 10 mg Diltiazem HCl (Cardizem Cd) 120 mg PO DAILY [facility] Last Admin: 11/25/17 09:01 Dose: 120 mg Docusate Sodium (Colace) 100 mg PO BID [facility] Last Admin: 11/25/17 09:01 Dose: 100 mg Enoxaparin Sodium (Lovenox) 40 mg SUBCUT Q24H [facility] Last Admin: 11/25/17 09:01 Dose: 40 mg Heparin Sodium (Porcine) (Heparin Sodium) 5,000 units SUBCUT Q8H [facility] Last Admin: 11/20/17 23:51 Dose: 5,000 units Hydrochlorothiazide (Hydrochlorothiazide) 12.5 mg PO DAILY [facility] Last Admin: 11/25/17 09:00 Dose: 12.5 mg Sodium Chloride (Normal Saline) 250 mls @ 999 mls/hr IV STAT [facility] Last Admin: 11/20/17 19:08 Dose: 999 mls/hr Ceftriaxone Sodium 1 gm/ (Sodium Chloride) 50 mls @ 100 mls/hr IV ONETIME ONE Stop: 11/20/17 21:46 Last Admin: 11/20/17 22:06 Dose: 100 mls/hr Azithromycin 500 mg/ Sodium (Chloride) 250 mls @ 250 mls/hr IV Q24H [facility] Last Admin: 11/21/17 00:11 Dose: 250 mls/hr Cefepime HCl 1 gm/ Premix 50 mls @ 100 mls/hr IV Q8H [facility] Last Admin: 11/25/17 01:54 Dose: 100 mls/hr Potassium Chloride/Sodium Chloride (Normal Saline With 20 Meq Kcl) 1,000 mls @ 150 mls/hr IV ASDIRECTED [facility] Last Admin: 11/21/17 15:20 Dose: 150 mls/hr Azithromycin 500 mg/ Sodium (Chloride) 250 mls @ 250 mls/hr IV Q24H [facility] Last Admin: 11/25/17 01:25 Dose: 250 mls/hr Vancomycin HCl 1 gm/ Sodium (Chloride) 250 mls @ 166.667 mls/hr IV Q12H [facility] Last Admin: 11/25/17 00:50 Dose: 166.667 mls/hr Cefepime HCl 1 gm/ Premix 50 mls @ 100 mls/hr IV ONETIME ONE Stop: 11/25/17 02:06 Last Admin: 11/25/17 02:04 Dose: Not Given Vancomycin HCl 1 gm/ Sodium (Chloride) 250 mls @ 166 mls/hr IV ONETIME ONE Stop: 11/25/17 03:07 Last Admin: 11/25/17 02:04 Dose: Not Given Cefepime HCl 1 gm/ Premix 50 mls @ 100 mls/hr IV Q8H [facility] Last Admin: 11/25/17 09:03 Dose: 100 mls/hr Vancomycin HCl 1 gm/ Sodium (Chloride) 250 mls @ 166.667 mls/hr IV Q12H [facility] Lorazepam (Ativan) 1 mg IVPUSH Q6H PRN PRN Reason: Anxiety Methylprednisolone Sodium Succinate (Solu-Medrol) 125 mg IVPUSH ONETIME ONE Stop: 11/20/17 18:47 Last Admin: 11/20/17 19:07 Dose: 125 mg Morphine Sulfate (Morphine) 4 mg IVPUSH Q2H PRN PRN Reason: Pain Nicotine (Habitrol) 21 mg TRDERM DAILY [facility] Last Admin: 11/25/17 09:02 Dose: 21 mg Ondansetron HCl (Zofran Odt) 4 mg PO Q4H PRN PRN Reason: nausea, able to take PO Simvastatin (Zocor) 10 mg PO BEDTIME [facility] Last Admin: 11/24/17 21:53 Dose: 10 mg Temazepam (Restoril) 15 mg PO BEDTIME PRN PRN Reason: Sleep Tramadol HCl (Ultram) 50 mg PO BID [facility] Last Admin: 11/25/17 09:00 Dose: 50 mg Vancomycin HCl (Pharmacy To Dose - Vancomycin) 1 dose .XX ASDIRECTED [facility]
[2017-11-25] MEDS: Benazepril 10 MG Tab PO SCH (09:00)
[2017-11-25] MEDS: traMADol 50 MG Tab PO SCH (09:00)
[2017-11-25] MEDS: Hydrochlorothiazide 12.5 MG Cap PO SCH (09:00)
[2017-11-25] MEDS: Clopidogrel 75 MG Tab PO SCH (09:00)
[2017-11-25] MEDS: Diltiazem 120 MG Cap.CD PO SCH (09:01)
[2017-11-25] MEDS: Docusate Sodium 100 MG Cap PO SCH (09:01)
[2017-11-25] MEDS: Aspirin 81 MG Tab.Chew PO SCH (09:01)
[2017-11-25] MEDS: Enoxaparin 40 MG/0.4 ML Syringe SUBCUT SCH (09:01)
[2017-11-25] MEDS: Nicotine 21 MG/24 Hr Patch TRDERM SCH (09:02)
[2017-11-25] MEDS ORDERED: Cefepime 1 GM in Premix Bag 1 BAG IV SCH (09:30)
== END 2017-11-25 12:30 | disposition home or self-care (01) | DRG 871 ==
LOC: MW.ED 17:28 → MW.ICU 21:13 → OBSVTOIN 11-22 09:35 → MW.MS 11-22 14:57
PROVIDERS: ADMIT Family Medicine; ATTEND Family Medicine
DX: A41.9 Sepsis, unspecified organism (principal); J44.9 Chronic obstructive pulmonary disease, unspecified; J18.9 Pneumonia, unspecified organism; J44.0 Chronic obstructive pulmonary disease with (acute) lower respiratory infection; E87.1 Hypo-osmolality and hyponatremia; M48.50XA Collapsed vertebra, not elsewhere classified, site unspecified, initial encounter for fracture; R41.0 Disorientation, unspecified; D72.829 Elevated white blood cell count, unspecified; M54.5 Low back pain; G89.29 Other chronic pain; M48.061 Spinal stenosis, lumbar region without neurogenic claudication; R29.898 Other symptoms and signs involving the musculoskeletal system; I25.10 Atherosclerotic heart disease of native coronary artery without angina pectoris; F17.210 Nicotine dependence, cigarettes, uncomplicated; Z79.899 Other long term (current) drug therapy; Z79.82 Long term (current) use of aspirin; Z88.8 Allergy status to other drugs, medicaments and biological substances; Z91.81 History of falling
CPT/HCPCS: 36415 ×2; 71045; 80048 ×2; 80053; 81001; 83605; 83735 ×2; 84484; 85025 ×3; 85610; 87040 ×2; 93005; 94640; 96361; 96374; 99285; A9270 ×25; J0456 ×2; J0692 ×5; J0696; J1644; J1650 ×2; J2930; J3480 ×3; J7050 ×4; 80202; 84100; 97110-GP; 97161-GP; J3370; J7620-GY

== ENCOUNTER 2018-10-01 06:38 | Inpatient (IN) | payer MEDICARE, OTHER ==
[2018-10-01] MEDS ORDERED: methylPREDNISolone Sodium Succinate 125 MG/2 ML SDV ONE (06:50)
[2018-10-01] MEDS ORDERED: Albuterol/Ipratropium 3.0-0.5 MG/3 ML Neb Soln ONE ×2 (06:50→06:52)
[2018-10-01] MEDS ORDERED: Albuterol/Ipratropium 3.0-0.5 MG/3 ML Neb Soln NEB ONE (06:51)
[2018-10-01] MEDS ORDERED: methylPREDNISolone Sodium Succinate 125 MG/2 ML SDV IV ONE (06:52)
--- NOTE | 2018-10-01 06:53 | EDM.PDOC ---
<Jerome Garrison J - Last Filed: 10/01/18 06:50> ED HPI GENERAL MEDICAL PROBLEM - General Chief Complaint: Respiratory Problem Stated Complaint: SHORTNESS OF BREATH Time Seen by Provider: 10/01/18 08:11 - History of Present Illness INITIAL COMMENTS - FREE TEXT/NARRATIVE: HISTORY AND PHYSICAL: History of present illness: Patient is a 77-year-old white male history of COPD also has a history of prior pneumonias who presents with a concern of shortness of breath 1 day worse this morning unresponsive to his home nebulizer. Patient denies chest pain nausea vomiting fever chills or other complaints he denies history of heart failure Review of systems: As per history of present illness and below otherwise all systems reviewed and negative. Past medical history: As per history of present illness and as reviewed below otherwise noncontributory. Surgical history: As per history of present illness and as reviewed below otherwise noncontributory. Social history: No reported history of drug or alcohol abuse. Family history: As per history of present illness and as reviewed below otherwise noncontributory. Physical exam: HEENT: Atraumatic, normocephalic, pupils reactive, negative for conjunctival pallor or scleral icterus, mucous membranes moist, throat clear, neck supple, nontender, trachea midline. Lungs: Coarse bilaterally rhonchi right greater than left, breath sounds equal bilaterally, chest nontender. Heart: S1S2, regular, negative for clicks, rubs, or JVD. Abdomen: Soft, nondistended, nontender. Negative for masses or hepatosplenomegaly. Negative for costovertebral tenderness. Pelvis: Stable nontender. Genitourinary: Deferred. Rectal: Deferred. Extremities: Atraumatic, negative for cords or calf pain. Neurovascular unremarkable. Negative for peripheral edema Neuro: Awake, alert, oriented. Follows commands and moves all extremities limited grossly nonfocal exam. Diagnostics: CBC CMP troponin PT/INR BNP chest x-ray EKG ABG Therapeutics: IV O2 monitor albuterol ipratropium nebulizer Solu-Medrol 125 mg IV Impression: #1 acute dyspnea #2 COPD Definitive disposition and diagnosis as appropriate pending reevaluation and review of above. - Related Data Allergies Allergy/AdvReac Type Severity Reaction Status Date / Time levofloxacin [From Levaquin] Allergy Cannot Verified 10/01/18 06:55 Remember Home Meds: Home Meds Aspirin 81 mg PO DAILY 09/04/17 [History] Clopidogrel [Plavix] 75 mg PO DAILY 09/04/17 [History] Diltiazem [Cardizem CD] 120 mg PO DAILY 09/04/17 [History] Simvastatin [Zocor] 10 mg PO BEDTIME 09/04/17 [History] Past Medical History HEENT History: Reports: Impaired Vision Cardiovascular History: Reports: CAD Other Cardiovascular History: High blood pressure/Heart Problems Respiratory History: Reports: COPD Musculoskeletal History: Reports: Back Pain, Chronic Other Musculoskeletal History: 3 back surgeries Psychiatric History: Reports: Depression - Infectious Disease History Infectious Disease History: Reports: Chicken Pox Social & Family History - Family History Family Medical History: Noncontributory - Caffeine Use Caffeine Use: Reports: Coffee ED ROS GENERAL - Review of Systems Review Of Systems: ROS reveals no pertinent complaints other than HPI. ED EXAM, GENERAL - Physical Exam Exam: See Below (See dictation) Course - Vital Signs Last Recorded V/S: Last Vital Signs Temp 97.4 F 10/01/18 06:38 Pulse 94 10/01/18 08:05 Resp 16 10/01/18 08:05 BP 114/70 10/01/18 08:05 Pulse Ox 91 L 10/01/18 08:05 - Orders/Labs/Meds Orders: Active Orders 24 hr Category Date Time Status Cardiac Monitoring [RC] . DIRECTED Care 10/01/18 06:45 Active EKG Documentation Completion [RC] STAT Care 10/01/18 06:45 Active RT Aerosol Therapy [RC] ASDIRECTED Care 10/01/18 06:51 Active RT BiPAP/CPAP [RC] ASDIRECTED Care 10/01/18 07:14 Active Chest 1V Frontal [CR] Stat Exams 10/01/18 06:45 Taken CULTURE BLOOD [BC] Stat Lab 10/01/18 07:17 Received CULTURE BLOOD [BC] Stat Lab 10/01/18 07:28 Received Vancomycin 1 gm Med 10/01/18 08:05 Active Sodium Chloride 0.9% [Normal Saline] 250 ml IV ONETIME Blood Culture x2 Reflex Set [OM.PC] Stat Oth 10/01/18 07:06 Ordered Medication Orders Vancomycin HCl 1 gm/ Sodium (Chloride) 250 mls @ 250 mls/hr IV ONETIME ONE Stop: 10/01/18 09:04 Labs: Laboratory Tests 10/01/18 10/01/18 10/01/18 Range/Units 06:14 06:14 06:14 WBC 23.50 H (4.0-11.0) K/uL RBC 4.29 L (4.50-5.90) M/uL Hgb 15.6 (13.0-17.0) g/dL Hct 44.1 (38.0-50.0) % MCV 102.8 H (80.0-98.0) fL MCH 36.4 H (27.0-32.0) pg MCHC 35.4 (31.0-37.0) g/dL RDW Std Deviation 45.5 (28.0-62.0) fl RDW Coeff of Anibal 12 (11.0-15.0) % Plt Count 228 (150-400) K/uL MPV 10.60 (7.40-12.00) fL Add Manual Diff YES Neutrophils % (Manual) 75 (48.0-80.0) % Band Neutrophils % 9 % Lymphocytes % (Manual) 13 L (16.0-40.0) % Monocytes % (Manual) 3 (0.0-15.0) % Nucleated RBC % 0.0 /100WBC Absolute Seg Neuts 17.6 H (1.4-5.7) Band Neutrophils # 2.1 Lymphocytes # (Manual) 3.1 H (0.6-2.4) Monocytes # (Manual) 0.7 (0.0-0.8) Nucleated RBCs # 0 K/uL INR 0.91 ABG pH (7.35-7.45) ABG pCO2 (35-45) mmHG ABG pO2 (75-100) mmHG ABG HCO3 (22-26) mEq/L ABG Total CO2 ABG Base Excess (-2.0-2.0) Lactate (0.20-2.00) mmol/L Sodium 126 L (136-148) mmol/L Potassium 3.3 L (3.5-5.1) mmol/L Chloride 91 L (98-107) mmol/L Carbon Dioxide 23.1 (21.0-32.0) mmol/L BUN 25 H (7.0-18.0) mg/dL Creatinine 1.2 (0.8-1.3) mg/dL Est Cr Clr Drug Dosing 47.96 mL/min Estimated GFR (MDRD) 58.7 ml/min Glucose 115 H (74-106) mg/dL Calcium 8.6 (8.5-10.1) mg/dL Troponin I < 0.050 (0.000-0.056) ng/mL B-Natriuretic Peptide (<100) PG/ML 10/01/18 10/01/18 10/01/18 Range/Units 06:14 07:00 07:00 WBC (4.0-11.0) K/uL RBC (4.50-5.90) M/uL Hgb (13.0-17.0) g/dL Hct (38.0-50.0) % MCV (80.0-98.0) fL MCH (27.0-32.0) pg MCHC (31.0-37.0) g/dL RDW Std Deviation (28.0-62.0) fl RDW Coeff of Anibal (11.0-15.0) % Plt Count (150-400) K/uL MPV (7.40-12.00) fL Add Manual Diff Neutrophils % (Manual) (48.0-80.0) % Band Neutrophils % % Lymphocytes % (Manual) (16.0-40.0) % Monocytes % (Manual) (0.0-15.0) % Nucleated RBC % /100WBC Absolute Seg Neuts (1.4-5.7) Band Neutrophils # Lymphocytes # (Manual) (0.6-2.4) Monocytes # (Manual) (0.0-0.8) Nucleated RBCs # K/uL INR ABG pH 7.386 (7.35-7.45) ABG pCO2 34 L (35-45) mmHG ABG pO2 94 (75-100) mmHG ABG HCO3 21 L (22-26) mEq/L ABG Total CO2 18.1 ABG Base Excess -3.7 L (-2.0-2.0) Lactate 2.1 H (0.20-2.00) mmol/L Sodium (136-148) mmol/L Potassium (3.5-5.1) mmol/L Chloride (98-107) mmol/L Carbon Dioxide (21.0-32.0) mmol/L BUN (7.0-18.0) mg/dL Creatinine (0.8-1.3) mg/dL Est Cr Clr Drug Dosing mL/min Estimated GFR (MDRD) ml/min Glucose (74-106) mg/dL Calcium (8.5-10.1) mg/dL Troponin I (0.000-0.056) ng/mL B-Natriuretic Peptide 26 (<100) PG/ML Meds: Medications Generic Name Dose Route Start Last Admin Trade Name Freq PRN Reason Stop Dose Admin Vancomycin HCl 1 gm/ Sodium 250 mls @ 250 mls/hr 10/01/18 08:05 Chloride IV 10/01/18 09:04 ONETIME ONE Discontinued Medications Generic Name Dose Route Start Last Admin Trade Name Freq PRN Reason Stop Dose Admin Albuterol/Ipratropium 3 ml 10/01/18 06:51 10/01/18 06:55 Duoneb 3.0-0.5 Mg/3 Ml NEB 10/01/18 06:52 3 ml ONETIME ONE Administration Albuterol/Ipratropium Confirm 10/01/18 06:50 Duoneb 3.0-0.5 Mg/3 Ml Administered 10/01/18 06:51 Dose 3 ml .ROUTE .STK-MED ONE Albuterol/Ipratropium Confirm 10/01/18 06:52 10/01/18 06:55 Duoneb 3.0-0.5 Mg/3 Ml Administered 10/01/18 06:53 Not Given Dose 3 ml .ROUTE .STK-MED ONE Piperacillin Sod/Tazobactam 50 mls @ 100 mls/hr 10/01/18 07:05 Sod 3.375 gm/ Sodium Chloride IV 10/01/18 07:34 ONETIME ONE Vancomycin HCl 1 gm/ Sodium 250 mls @ 166 mls/hr 10/01/18 07:05 Chloride IV 10/01/18 08:35 ONETIME ONE Methylprednisolone Sodium Succinate 125 mg 10/01/18 06:52 10/01/18 06:55 Solu-Medrol IV 10/01/18 06:53 125 mg ONETIME ONE Administration Methylprednisolone Sodium Succinate Confirm 10/01/18 06:50 10/01/18 06:55 Solu-Medrol Administered 10/01/18 06:51 Not Given Dose 125 mg .ROUTE .STK-MED ONE Departure - Departure Disposition: Refer to Observation Clinical Impression: Hypoxia COPD (chronic obstructive pulmonary disease) Qualifiers: COPD type: emphysema Emphysema type: unspecified Qualified Code(s): J43.9 - Emphysema, unspecified - Discharge Information Referrals: PCP,None [Primary Care Provider] - Forms: ED Department Discharge <Albert Stauffer - Last Filed: 10/01/18 08:11> ED HPI GENERAL MEDICAL PROBLEM - General Source of Information: Reports: Patient ED ROS GENERAL - Review of Systems Review Of Systems: See Below ED EXAM, GENERAL - Physical Exam Exam: See Below Departure - Departure Time of Disposition: 08:10 Condition: Poor
[2018-10-01] MEDS ORDERED: Piperacillin/Tazobactam 3.375 GM in Sodium Chloride 0.9% 50 ML IV ONE (07:05)
[2018-10-01 07:23] LABS: BLOOD UREA NITROGEN,BUN 25 mg/dL (7.0-18.0); CARBON DIOXIDE,CO2 23.1 mmol/L (21.0-32.0); CHLORIDE,CL 91 mmol/L (98-107); GLUCOSE RANDOM 115 mg/dL (74-106); POTASSIUM,K 3.3 mmol/L (3.5-5.1); SODIUM,NA 126 mmol/L (136-148)
[2018-10-01] MEDS ORDERED: Piperacillin/Tazobactam 3.375 GM in Sodium Chloride 0.9% 100 ML IV ONE (08:30)
--- NOTE | 2018-10-01 08:35 | CR ---
INDICATION: Chest pain, shortness of breath. TECHNIQUE: Chest 1 view COMPARISON: None FINDINGS: No focal consolidation, pleural effusion, or pneumothorax. Normal heart size. Calcified tortuous aorta. Degenerative changes of the spine. Probable lower thoracic vertebroplasty. IMPRESSION: No acute cardiopulmonary findings. Dictated by Annie Garcia MD @ Oct 01 2018 8:30AM Signed by Dr. Annie Garcia @ Oct 01 2018 8:34AM
--- NOTE | 2018-10-01 10:27 | PCM.HP ---
H&P History of Present Illness - General Date of Service: 10/01/18 Admit Problem/Dx: Admission Diagnosis/Problem Admission Diagnosis/Problem COPD, Severe chronic obstructive pulmonary disease - History of Present Illness Initial Comments - Free Text/Narative: This patient is a 77-year-old male with a past medical history of COPD, CAD sp stents and hypertension who presented to [facility] with shortness of breath since this morning. He tried using his home nebulizers for COPD, however, this provided no relief. He reports that his house is being painted and he believes that the paint fumes are what caused his shortness of breath. He reports no shortness of breath over the past couple of days and was breathing fine until waking up this morning and feeling like he cannot yet a deep breath in. He does have a history of COPD but denies ever being hospitalized for an exacerbation in the past. He reports having inhalers at home for COPD, however, rarely ever has to use them. He is a current smoker and frequently coughs up sputum. he denies any recent respiratory illnesses. Patient does report that a couple of weeks ago. He received an epidural shot for back pain and ever since then he has been burping more frequently, having hiccups and dealing with an upset stomach. He states that he has not been able to eat very much because of upset stomach for the past few weeks. Patient denied fevers, chills or chest pain. In [place] [facility], patient was noted to have an oxygen saturation in the 80's and was started on DuoNeb treatments, IV steroids and received a dose of vancomycin and Zosyn antibiotics. CXR was negative for any acute cardiopulmonary processes. He eventually required BiPAP and was admitted to the ICU for further management. Back Pain Score (Numeric/FACES): 0 - Related Data Allergies/Adverse Reactions: Allergies Allergy/AdvReac Type Severity Reaction Status Date / Time levofloxacin [From Levaquin] Allergy Cannot Verified 10/01/18 06:55 Remember Home Medications: Home Meds Aspirin 81 mg PO Q2D 09/04/17 [History] Clopidogrel [Plavix] 75 mg PO DAILY 09/04/17 [History] Diltiazem [Cardizem CD] 120 mg PO DAILY 09/04/17 [History] Simvastatin [Zocor] 10 mg PO BEDTIME 09/04/17 [History] Past Medical History HEENT History: Reports: Impaired Vision Cardiovascular History: Reports: CAD, High Cholesterol, Hypertension, Stents Other Cardiovascular History: High blood pressure/Heart Problems Respiratory History: Reports: COPD Gastrointestinal History: Reports: None Genitourinary History: Reports: None Musculoskeletal History: Reports: Back Pain, Chronic Other Musculoskeletal History: 3 back surgeries. epidural shots- last injection on 09/23 Neurological History: Reports: None Psychiatric History: Reports: Depression Endocrine/Metabolic History: Reports: None Hematologic History: Reports: None Immunologic History: Reports: None Oncologic (Cancer) History: Reports: None Dermatologic History: Reports: None - Infectious Disease History Infectious Disease History: Reports: Chicken Pox - Past Surgical History Head Surgeries/Procedures: Reports: None Other Cardiovascular Surgeries/Procedures: cardiac stents 2010 Social & Family History - Family History Family Medical History: Noncontributory - Tobacco Use Smoking Status *Q: Current Every Day Smoker Years of Tobacco use: 53 Packs/Tins Daily: 0.2 - Caffeine Use Caffeine Use: Reports: Coffee - Alcohol Use Days Per Week of Alcohol Use: 7 Number of Drinks Per Day: 6 Total Drinks Per Week: 42 Date of Last Drink: 09/30/18 Time of Last Drink: 20:00 - Recreational Drug Use Recreational Drug Use: No H&P Review of Systems - Review of Systems: Review Of Systems: See Below General: Denies: Fever, Chills HEENT: Reports: Hearing Changes (hard of hearing at baseline). Denies: Headaches, Rhinitis, Sore Throat, Visual Changes Pulmonary: Reports: Shortness of Breath, Cough Cardiovascular: Denies: Chest Pain Gastrointestinal: Reports: Other (abdominal discomfort, increased belching). Denies: Constipation, Diarrhea, Vomiting Genitourinary: Denies: Dysuria, Hematuria Musculoskeletal: Denies: Muscle Pain Skin: Reports: Bruising. Denies: Rash, Lesions Psychiatric: Denies: Confusion Neurological: Denies: Numbness, Tingling Hematologic/Lymphatic: Reports: Easy Bruising Exam - Exam Exam: See Below - Vital Signs Vital Signs: Last Vital Signs Temp 97.2 F 10/01/18 08:57 Pulse 91 10/01/18 09:12 Resp 20 10/01/18 09:12 BP 120/72 10/01/18 09:12 Pulse Ox 91 L 10/01/18 09:12 Weight: 145 lb - Exam General: Alert, Oriented, Cooperative, Other (wearing BiPap mask) HEENT: Conjunctiva Clear, EOMI, Hearing Intact (hard of hearing at baseline), Mucosa Moist & Corn, Pupils Equal Neck: Supple, Trachea Midline Lungs: Decreased Breath Sounds (bilaterally), Rhonchi (bilaterally). No: Normal Respiratory Effort Cardiovascular: Regular Rate, Regular Rhythm GI/Abdominal Exam: Normal Bowel Sounds, Soft, Non-Tender, No Distention (Male) Exam: Deferred Rectal (Males) Exam: Deferred Extremities: Normal Inspection, Normal Range of Motion, Non-Tender, No Pedal Edema Peripheral Pulses: 2+: Posterior Tibial (L), Posterior Tibial (R) Skin: Warm, Dry Neurological: Strength Equal Bilateral, Normal Speech, Other (5/5 strength in upper and lower extremities bilaterally). No: Focal Deficit Neuro Extensive - Mental Status: Alert, Oriented x3, Normal Mood/Affect Psychiatric: Alert, Normal Affect, Normal Mood - Patient Data Lab Results Last 24 hrs: Laboratory Results - last 24 hr 10/01/18 10/01/18 10/01/18 Range/Units 06:14 06:14 06:14 WBC 23.50 H (4.0-11.0) K/uL RBC 4.29 L (4.50-5.90) M/uL Hgb 15.6 (13.0-17.0) g/dL Hct 44.1 (38.0-50.0) % MCV 102.8 H (80.0-98.0) fL MCH 36.4 H (27.0-32.0) pg MCHC 35.4 (31.0-37.0) g/dL RDW Std Deviation 45.5 (28.0-62.0) fl RDW Coeff of Anibal 12 (11.0-15.0) % Plt Count 228 (150-400) K/uL MPV 10.60 (7.40-12.00) fL Add Manual Diff YES Neutrophils % (Manual) 75 (48.0-80.0) % Band Neutrophils % 9 % Lymphocytes % (Manual) 13 L (16.0-40.0) % Monocytes % (Manual) 3 (0.0-15.0) % Nucleated RBC % 0.0 /100WBC Absolute Seg Neuts 17.6 H (1.4-5.7) Band Neutrophils # 2.1 Lymphocytes # (Manual) 3.1 H (0.6-2.4) Monocytes # (Manual) 0.7 (0.0-0.8) Nucleated RBCs # 0 K/uL INR 0.91 ABG pH (7.35-7.45) ABG pCO2 (35-45) mmHG ABG pO2 (75-100) mmHG ABG HCO3 (22-26) mEq/L ABG Total CO2 ABG Base Excess (-2.0-2.0) Lactate (0.20-2.00) mmol/L Sodium 126 L (136-148) mmol/L Potassium 3.3 L (3.5-5.1) mmol/L Chloride 91 L (98-107) mmol/L Carbon Dioxide 23.1 (21.0-32.0) mmol/L BUN 25 H (7.0-18.0) mg/dL Creatinine 1.2 (0.8-1.3) mg/dL Est Cr Clr Drug Dosing 47.96 mL/min Estimated GFR (MDRD) 58.7 ml/min Glucose 115 H (74-106) mg/dL Calcium 8.6 (8.5-10.1) mg/dL Troponin I < 0.050 (0.000-0.056) ng/mL B-Natriuretic Peptide (<100) PG/ML 10/01/18 10/01/18 10/01/18 Range/Units 06:14 07:00 07:00 WBC (4.0-11.0) K/uL RBC (4.50-5.90) M/uL Hgb (13.0-17.0) g/dL Hct (38.0-50.0) % MCV (80.0-98.0) fL MCH (27.0-32.0) pg MCHC (31.0-37.0) g/dL RDW Std Deviation (28.0-62.0) fl RDW Coeff of Anibal (11.0-15.0) % Plt Count (150-400) K/uL MPV (7.40-12.00) fL Add Manual Diff Neutrophils % (Manual) (48.0-80.0) % Band Neutrophils % % Lymphocytes % (Manual) (16.0-40.0) % Monocytes % (Manual) (0.0-15.0) % Nucleated RBC % /100WBC Absolute Seg Neuts (1.4-5.7) Band Neutrophils # Lymphocytes # (Manual) (0.6-2.4) Monocytes # (Manual) (0.0-0.8) Nucleated RBCs # K/uL INR ABG pH 7.386 (7.35-7.45) ABG pCO2 34 L (35-45) mmHG ABG pO2 94 (75-100) mmHG ABG HCO3 21 L (22-26) mEq/L ABG Total CO2 18.1 ABG Base Excess -3.7 L (-2.0-2.0) Lactate 2.1 H (0.20-2.00) mmol/L Sodium (136-148) mmol/L Potassium (3.5-5.1) mmol/L Chloride (98-107) mmol/L Carbon Dioxide (21.0-32.0) mmol/L BUN (7.0-18.0) mg/dL Creatinine (0.8-1.3) mg/dL Est Cr Clr Drug Dosing mL/min Estimated GFR (MDRD) ml/min Glucose (74-106) mg/dL Calcium (8.5-10.1) mg/dL Troponin I (0.000-0.056) ng/mL B-Natriuretic Peptide 26 (<100) PG/ML Result Diagrams: 10/01/18 06:14 10/01/18 06:14 Problem List Initiated/Reviewed/Updated: Yes Orders Last 24hrs: Active Orders 24 hr Category Date Time Status Admission Status [Patient Status] [ADT] Stat ADT 10/01/18 08:11 Active Cardiac Monitoring [RC] . DIRECTED Care 10/01/18 06:45 Active EKG Documentation Completion [RC] STAT Care 10/01/18 06:45 Active RT Aerosol Therapy [RC] ASDIRECTED Care 10/01/18 06:51 Active RT BiPAP/CPAP [RC] ASDIRECTED Care 10/01/18 07:14 Active CULTURE BLOOD [BC] Stat Lab 10/01/18 07:17 Received CULTURE BLOOD [BC] Stat Lab 10/01/18 07:28 Received Blood Culture x2 Reflex Set [OM.PC] Stat Oth 10/01/18 07:06 Ordered Assessment: 1. Acute on chronic hypoxic respiratory failure secondary to COPD exacerbation. 2. Leukocytosis in the setting of #1. 3. Hyponatremia. 4. Hypokalemia. 5. Macrocytic anemia 6. Past medical history of CAD sp stent placement, HTN and depression. Plan: 1. Admit to ICU. 2. For acute on chronic hypoxic respiratory failure, patient placed on BiPAP. Will recheck blood gases with repeat ABG. Will continue IV solumedrol, duonebs q4h and start IV ceftriaxone. Blood cultures pending. 3. For leukocytosis, will continue to monitor with AM labs. Patient remains afebrile and CXR was negative for any acute cardiopulmonary processes. 4. For hyponatremia, will start patient on IV normal saline. Will recheck with AM labs. Patient is asymptomatic. 5. For hypokalemia, will replete with 40 mEq PO and recheck with AM labs. 6. For macrocytic anemia, will consider ordering vitamin B12 and folate level. 6. For past medical history, will continue with home medications.
[2018-10-01] MEDS ORDERED: Ondansetron 4 MG Tab.DIS PO PRN (11:24)
[2018-10-01] MEDS ORDERED: Ondansetron 4 MG/2 ML SDV IVPUSH PRN (11:24)
[2018-10-01] MEDS ORDERED: Acetaminophen 325 MG Tab PO PRN (11:24)
[2018-10-01] MEDS ORDERED: Morphine 2 MG/ML Syringe IVPUSH PRN (11:24)
[2018-10-01] MEDS ORDERED: Albuterol/Ipratropium 3.0-0.5 MG/3 ML Neb Soln NEB PRN (11:24)
[2018-10-01] MEDS ORDERED: Sodium Chloride 0.9% 1,000 ML IV SCH (11:30)
[2018-10-01] MEDS: Enoxaparin 40 MG/0.4 ML Syringe SUBCUT SCH (12:38)
[2018-10-01] MEDS: cefTRIAXone 2 GM in Premix Bag 1 BAG IV SCH (12:39)
[2018-10-01] MEDS ORDERED: Potassium Chloride 20 MEQ Tab.ER PO ONE (13:38)
[2018-10-01] MEDS: Pantoprazole 40 MG Tab.CR PO SCH (14:10)
--- NOTE | 2018-10-01 19:47 | PN ---
[facility] Physician - Brief Progress [id number]/31/2019 19:32[facility] Debbie Glover ND - LARRY (SELENAN) - LARRY MCBRIDELIZETTE BAINRitaDate of Service 10/01/2018 19:32HPI/Events of N ote eICU Admission NotePatient is a 77-year-old male admitted to the intensive care unit for a diagno sis of COPD exacerbation.Past medical history is significant for COPD, coronary artery disease with p rior stents placed, and essential hypertension. Patient is a current smoker.Patient had presented to the emergency department with a 1 day history of shortness of breath.On arrival, vital signs reveal patient to be hypoxemic, but otherwise was hemodynamically stable. Initial laboratory studies reveal ed leukocytosis with neutrophilic predominance, macrocytosis, alkalemia with hypocapnia, and initiall y normal lactate of 1.3, which devin to 2.1, mild hyponatremia, hypokalemia, and unremarkable cardiac markers. Chest x-ray did not reveal any acute findings.Reviewed patient on camera, patient is restin g in bed, appears to be without tachycardia or hypotension, saturating well on nasal cannula. eICU Re commendations:Acute hypoxemic respiratory failure, with alkalemia, in light of acute onset. Concern f or possible pulmonary embolism in light of hypocapnia, especially with hypoxemia.- recommend CTPE to rule out acute pulmonary embolism- agree with supplemental oxygen for support- given hypocapnia, acid -base status appears incompatible with COPD exacerbation. Consider discontinuation of steroid therapy Leukocytosis, of uncertain significance. Without documentation of fever, tachycardia, or hypotension, infection seems to be a less likely etiology- can consider urinalysis to expand work up- if still moreno specting pulmonary source despite clear chest x-ray, can consider repeat of chest x-ray for repeat as sessment of interval development of infiltrate, or procalcitonin- will defer to primary service anup schmitt antibiotic management. We are available to assist if desired.Thank you for allowing us to partic ipate in the care of your patient.Interventions Major-Hypoxemia - evaluation and managementElectronic ally Signed by: TUCKER SORTO) on 10/01/2018 19:46
[2018-10-02 06:28] LABS: BLOOD UREA NITROGEN,BUN 25 mg/dL (7.0-18.0); CARBON DIOXIDE,CO2 23.7 mmol/L (21.0-32.0); CHLORIDE,CL 100 mmol/L (98-107); GLUCOSE RANDOM 121 mg/dL (74-106); POTASSIUM,K 4.2 mmol/L (3.5-5.1); SODIUM,NA 134 mmol/L (136-148)
[2018-10-02] MEDS: Pantoprazole 40 MG Tab.CR PO SCH (08:03)
[2018-10-02] MEDS ORDERED: Azithromycin 250 MG Tab PO SCH (08:45)
[2018-10-02] MEDS ORDERED: methylPREDNISolone Sodium Succinate 125 MG/2 ML SDV IVPUSH SCH (09:00)
--- NOTE | 2018-10-02 10:53 | PCM.PN ---
- General Info Date of Service: 10/02/18 Subjective Update: Patient is a 72-year-old male who was admitted for COPD exacerbation. He was admitted to the ICU on BiPAP yesterday and is now on room air. He was started on IV solumedrol, duonebs 14 and IV ceftriaxone. EICU consulted and recommended CTPE to rule out pulmonary embolism. Patient seen and examined at bedside this AM and reports significant improvement in breathing since being admitted yesterday. Tolerating diet well and denies nausea, vomiting or shortness of breath. Last bowel movement was yesterday. - Patient Data Vitals - Most Recent: Last Vital Signs Temp 98.3 F 10/02/18 08:40 Pulse 89 10/02/18 08:40 Resp 17 10/02/18 08:40 BP 111/56 L 10/02/18 08:40 Pulse Ox 95 10/02/18 08:40 Weight - Most Recent: 144 lb 5 oz I&O - Last 24 Hours: Intake & Output 10/01/18 10/02/18 10/02/18 22:59 06:59 14:59 Intake Total 300 1399 Output Total 250 0 Balance 50 1399 Lab Results Last 24 Hours: Laboratory Results - last 24 hr 10/01/18 10/01/18 10/01/18 Range/Units 11:19 11:19 12:29 WBC (4.0-11.0) K/uL RBC (4.50-5.90) M/uL Hgb (13.0-17.0) g/dL Hct (38.0-50.0) % MCV (80.0-98.0) fL MCH (27.0-32.0) pg MCHC (31.0-37.0) g/dL RDW Std Deviation (28.0-62.0) fl RDW Coeff of Anibal (11.0-15.0) % Plt Count (150-400) K/uL MPV (7.40-12.00) fL Add Manual Diff Neutrophils % (Manual) (48.0-80.0) % Band Neutrophils % % Lymphocytes % (Manual) (16.0-40.0) % Monocytes % (Manual) (0.0-15.0) % Nucleated RBC % /100WBC Absolute Seg Neuts (1.4-5.7) Band Neutrophils # Lymphocytes # (Manual) (0.6-2.4) Monocytes # (Manual) (0.0-0.8) Nucleated RBCs # K/uL ABG pH 7.461 H (7.35-7.45) ABG pCO2 34 L (35-45) mmHG ABG pO2 40 L (75-100) mmHG ABG HCO3 24 (22-26) mEq/L ABG Total CO2 21.5 ABG Base Excess 0.9 (-2.0-2.0) Lactate 1.3 (0.20-2.00) mmol/L Sodium (136-148) mmol/L Potassium (3.5-5.1) mmol/L Chloride (98-107) mmol/L Carbon Dioxide (21.0-32.0) mmol/L BUN (7.0-18.0) mg/dL Creatinine (0.8-1.3) mg/dL Est Cr Clr Drug Dosing mL/min Estimated GFR (MDRD) ml/min Glucose (74-106) mg/dL Calcium (8.5-10.1) mg/dL Magnesium 2.1 (1.8-2.4) mg/dL Total Bilirubin (0.2-1.0) mg/dL AST (15-37) IU/L ALT (14-63) IU/L Alkaline Phosphatase (46-116) U/L Total Protein (6.4-8.2) g/dL Albumin (3.4-5.0) g/dL Globulin (2.6-4.0) g/dL Albumin/Globulin Ratio (0.9-1.6) 10/01/18 10/02/18 10/02/18 Range/Units 15:58 05:55 05:55 WBC 17.40 H (4.0-11.0) K/uL RBC 3.42 L (4.50-5.90) M/uL Hgb 12.3 L (13.0-17.0) g/dL Hct 35.6 L (38.0-50.0) % MCV 104.1 H (80.0-98.0) fL MCH 36.0 H (27.0-32.0) pg MCHC 34.6 (31.0-37.0) g/dL RDW Std Deviation 45.7 (28.0-62.0) fl RDW Coeff of Anibal 12 (11.0-15.0) % Plt Count 174 (150-400) K/uL MPV 11.00 (7.40-12.00) fL Add Manual Diff YES Neutrophils % (Manual) 86 H (48.0-80.0) % Band Neutrophils % 5 % Lymphocytes % (Manual) 6 L (16.0-40.0) % Monocytes % (Manual) 3 (0.0-15.0) % Nucleated RBC % 0.0 /100WBC Absolute Seg Neuts 15.0 H (1.4-5.7) Band Neutrophils # 0.9 Lymphocytes # (Manual) 1.0 (0.6-2.4) Monocytes # (Manual) 0.5 (0.0-0.8) Nucleated RBCs # 0 K/uL ABG pH 7.487 H (7.35-7.45) ABG pCO2 31 L (35-45) mmHG ABG pO2 80 (75-100) mmHG ABG HCO3 24 (22-26) mEq/L ABG Total CO2 20.9 ABG Base Excess 1.0 (-2.0-2.0) Lactate (0.20-2.00) mmol/L Sodium 134 L (136-148) mmol/L Potassium 4.2 (3.5-5.1) mmol/L Chloride 100 (98-107) mmol/L Carbon Dioxide 23.7 (21.0-32.0) mmol/L BUN 25 H (7.0-18.0) mg/dL Creatinine 0.9 (0.8-1.3) mg/dL Est Cr Clr Drug Dosing 63.64 mL/min Estimated GFR (MDRD) > 60.0 ml/min Glucose 121 H (74-106) mg/dL Calcium 8.0 L (8.5-10.1) mg/dL Magnesium (1.8-2.4) mg/dL Total Bilirubin 0.7 (0.2-1.0) mg/dL AST 12 L (15-37) IU/L ALT 10 L (14-63) IU/L Alkaline Phosphatase 36 L (46-116) U/L Total Protein 5.4 L (6.4-8.2) g/dL Albumin 2.5 L (3.4-5.0) g/dL Globulin 2.9 (2.6-4.0) g/dL Albumin/Globulin Ratio 0.9 (0.9-1.6) Gerald Results Last 24 Hours: Microbiology 10/01/18 07:28 Aerobic Blood Culture - Preliminary Blood - Venous - Lab Draw NO GROWTH AFTER 1 DAY Anaerobic Blood Culture - Preliminary NO GROWTH AFTER 1 DAY 10/01/18 07:17 Aerobic Blood Culture - Preliminary Blood - Venous NO GROWTH AFTER 1 DAY Anaerobic Blood Culture - Preliminary NO GROWTH AFTER 1 DAY Med Orders - Current: Current Medications Acetaminophen (Tylenol) 650 mg PO Q4H PRN PRN Reason: Pain (Mild 1-3)/fever Albuterol/Ipratropium (Duoneb 3.0-0.5 Mg/3 Ml) 3 ml NEB Q4HRRT PRN PRN Reason: Shortness Of Breath/wheezing Azithromycin (Zithromax) 500 mg PO Q24H [facility] Last Admin: 10/02/18 08:55 Dose: 500 mg Enoxaparin Sodium (Lovenox) 40 mg SUBCUT Q24H [facility] Last Admin: 10/01/18 12:38 Dose: 40 mg Ceftriaxone Sodium/Dextrose 2 (gm/ Premix) 50 mls @ 100 mls/hr IV Q24H [facility] Last Admin: 10/01/18 12:39 Dose: 100 mls/hr Morphine Sulfate (Morphine) 2 mg IVPUSH Q2H PRN PRN Reason: Pain (severe 7-10) Stop: 10/02/18 11:28 Ondansetron HCl (Zofran Odt) 4 mg PO Q4H PRN PRN Reason: nausea, able to take PO Ondansetron HCl (Zofran) 4 mg IVPUSH Q4H PRN PRN Reason: Nausea Pantoprazole Sodium (Protonix) 40 mg PO DAILY [facility] Last Admin: 10/02/18 08:03 Dose: 40 mg Prednisone (Prednisone) 40 mg PO WITHBREAKFAST [facility] Discontinued Medications Albuterol/Ipratropium (Duoneb 3.0-0.5 Mg/3 Ml) 3 ml NEB ONETIME ONE Stop: 10/01/18 06:52 Last Admin: 10/01/18 06:55 Dose: 3 ml Albuterol/Ipratropium (Duoneb 3.0-0.5 Mg/3 Ml) Confirm Administered Dose 3 ml .ROUTE .STK-MED ONE Stop: 10/01/18 06:51 Last Admin: 10/01/18 09:29 Dose: Not Given Albuterol/Ipratropium (Duoneb 3.0-0.5 Mg/3 Ml) Confirm Administered Dose 3 ml .ROUTE .STK-MED ONE Stop: 10/01/18 06:53 Last Admin: 10/01/18 06:55 Dose: Not Given Piperacillin Sod/Tazobactam (Sod 3.375 gm/ Sodium Chloride) 50 mls @ 100 mls/ hr IV ONETIME ONE Stop: 10/01/18 07:34 Last Admin: 10/01/18 08:05 Dose: 100 mls/hr Vancomycin HCl 1 gm/ Sodium (Chloride) 250 mls @ 166 mls/hr IV ONETIME ONE Stop: 10/01/18 08:35 Last Admin: 10/01/18 14:07 Dose: Not Given Vancomycin HCl 1 gm/ Sodium (Chloride) 250 mls @ 250 mls/hr IV ONETIME ONE Stop: 10/01/18 09:04 Last Admin: 10/01/18 08:54 Dose: 250 mls/hr Piperacillin Sod/Tazobactam (Sod 3.375 gm/ Sodium Chloride) 100 mls @ 200 mls/ hr IV ONETIME ONE Stop: 10/01/18 08:59 Last Admin: 10/01/18 10:34 Dose: Not Given Sodium Chloride (Normal Saline) 1,000 mls @ 100 mls/hr IV ASDIRECTED [facility] Stop: 10/01/18 21:29 Last Admin: 10/01/18 17:56 Dose: 100 mls/hr Methylprednisolone Sodium Succinate (Solu-Medrol) 125 mg IV ONETIME ONE Stop: 10/01/18 06:53 Last Admin: 10/01/18 06:55 Dose: 125 mg Methylprednisolone Sodium Succinate (Solu-Medrol) Confirm Administered Dose 125 mg .ROUTE .STK-MED ONE Stop: 10/01/18 06:51 Last Admin: 10/01/18 06:55 Dose: Not Given Methylprednisolone Sodium Succinate (Solu-Medrol) 125 mg IVPUSH DAILY [facility] Last Admin: 10/02/18 08:03 Dose: 125 mg Potassium Chloride (Klor-Con M20) 40 meq PO ONETIME ONE Stop: 10/01/18 13:39 Last Admin: 10/01/18 14:10 Dose: 40 meq - Exam General: Alert, Oriented, Cooperative Lungs: Other (mild expiratory rhonchi bilaterally) Cardiovascular: Regular Rate, Regular Rhythm GI/Abdominal Exam: Normal Bowel Sounds, Soft, Non-Tender, No Distention Extremities: No: No Pedal Edema - Problem List Review Problem List Initiated/Reviewed/Updated: Yes - My Orders Last 24 Hours: My Active Orders 10/01/18 11:24 Bedrest Bathroom Privileges [RC] ASDIRECTED VTE/DVT Education [RC] PER UNIT ROUTINE Vital Signs [RC] Q4H Acetaminophen [Tylenol] 650 mg PO Q4H PRN Albuterol/Ipratropium [DuoNeb 3.0-0.5 MG/3 ML] 3 ml NEB Q4HRRT PRN Morphine 2 mg IVPUSH Q2H PRN Ondansetron [Zofran ODT] 4 mg PO Q4H PRN Ondansetron [Zofran] 4 mg IVPUSH Q4H PRN Resuscitation Status Routine 10/01/18 11:30 Enoxaparin [Lovenox] 40 mg SUBCUT Q24H 10/01/18 13:00 cefTRIAXone [Rocephin in Dextrose,Iso-Osm 2 GM/50 ML] 2 gm Premix Bag 1 bag IV Q24H 10/01/18 14:00 Pantoprazole [ProTONIX] 40 mg PO DAILY 10/01/18 Lunch Heart Healthy Diet [DIET] 10/03/18 05:11 BASIC METABOLIC PANEL,BMP [CHEM] AM CBC WITH AUTO DIFF [HEME] AM - Assessment Assessment:: Assessment: 1. Acute hypoxic respiratory failure secondary to COPD exacerbation vs pulmonary embolism vs pneumonia. 2. Acute macrocytic anemia, likely hemodilutional. 3. Leukocytosis likely secondary to recent epidural administration vs #1, improving. 4. Hyponatremia, improving. 5. Hypokalemia, resolved. 6. Past medical history of CAD sp stent placement, HTN and depression. - Plan Plan:: Plan: 1. For acute hypoxic respiratory failure, patient has been weaned to room air. He reports his breathing has almost returned to baseline at this time. As per EICU consult, will order CTPE to rule out pulmonary embolism. Patient remains on IV ceftriaxone and will add azithromycin to cover for pneumonia. Patient has remained stable and will be downgraded to general medical floor. Will also discontinue solumedrol and switch patient to PO prednisone. 2. For acute macrocytic anemia, patient's drop in hemoglobin is likely hemodilutional. Will also order a B12 and folate level. 3. For leukocytosis, will continue to monitor with AM labs. Patient reports history of recent epidural steroid administration for low back pain approximately 1 week ago. This could be the source of patient's leukocytosis on admission although an infection is also possible, however, less likely as patient has been afebrile and vital signs have been within normal limits. 4. For hyponatremia, will continue to monitor with AM labs. 5. For past medical history, will continue with home medications.
--- NOTE | 2018-10-02 11:55 | CT ---
EXAM DATE: 10/01/18 PATIENT'S AGE: 77 Patient: LIZETTE BAIN Facility: [facility] Site . Site : [id number] Study: CT-Chest Angio -10/02/2018 9:53:17 AM Ordering Physician: Sj Martinez Final Report: INDICATION: Dyspnea, leukocytosis, rule out PE. COMPARISON: Chest radiograph 10/01/2018. TECHNIQUE: CT volumetric acquisition was performed of the thorax during intravenous infusion of 50 cc of Isovue-370 nonionic intravenous contrast. Please note that all CT scans at this facility use dose modulation, iterative reconstruction, and/or weight-based dosing when appropriate to reduce radiation dose to as low as reasonably achievable. FINDINGS: Conventional 3 vessel aortic arch. Ectasia of the ascending thoracic aorta to 3.8 cm in greatest AP dimension. Coronary artery and aortic vascular calcifications. Normal caliber central pulmonary arteries. No pulmonary embolism. No pericardial effusion. No thoracic lymphadenopathy. Upper lung predominant emphysema. Multifocal patchy ground-glass opacities throughout the right middle and upper lobes, and to a lesser extent in the left upper and lower lobes, are likely infectious or inflammatory. Consolidation along the right minor fissure. Diffuse bronchial wall thickening. Left basilar atelectasis. No pleural effusion or pneumothorax. Pleural calcification in the medial left lung apex. The visualized upper abdomen is unremarkable. Compression fractures and vertebroplasty of T11 and T12. IMPRESSION: 1. No evidence of pulmonary thromboembolism. 2. Multifocal patchy ground-glass opacities in both lungs with associated diffuse bronchial wall thickening. This is likely infectious or inflammatory. 3. Ectasia of the ascending thoracic aorta to 3.8 cm. Please note that all CT scans at this facility use dose modulation, iterative reconstruction, and/or weight-based dosing when appropriate to reduce radiation dose to as low as reasonably achievable. Dictated by Annie Garcia MD @ Oct 02 2018 10:38AM Signed by: Annie Garcia MD @10/02/2018 10:43:15 AM (Electronic Signature) Report Signed by Proxy. [facility]
[2018-10-02] MEDS: Enoxaparin 40 MG/0.4 ML Syringe SUBCUT SCH (12:38)
[2018-10-02] MEDS: cefTRIAXone 2 GM in Premix Bag 1 BAG IV SCH (12:38)
--- NOTE | 2018-10-02 17:50 | PCM.DCSUM1 ---
<Natalio St - Last Filed: 10/02/18 17:45> Discharge Summary - Hospital Course Free Text/Narrative:: Patient is a 72-year-old male who was admitted for COPD exacerbation. He was started on BIPAP and admitted to the ICU. He was treated with duonebs, IV steroids and started on IV ceftriaxone. He was eventually weaned off of BiPAP to room air. CTPE was ordered and ruled out a pulmonary embolism but did reveal an area of consolidation along the right minor fissure. On day of discharge, patient reported a significant improvement in his breathing and was back to his baseline. He was discharged on a 7 day course of Augmentin and Azithromycin as well as a 5 day course of prednisone. - Discharge Data Discharge Date: 10/02/18 Discharge Disposition: Home, Self-Care 01 Condition: Stable - Patient Instructions Diet: Heart Healthy Diet Activity: As Tolerated Notify Provider of: Fever, Increased Pain, Swelling and Redness, Drainage, Nausea and/or Vomiting - Discharge Plan *PRESCRIPTION DRUG MONITORING PROGRAM REVIEWED*: Not Applicable *COPY OF PRESCRIPTION DRUG MONITORING REPORT IN PATIENT SHAHID: Not Applicable Prescriptions/Med Rec: Amoxicillin/Potassium Clav [Augmentin 875-125 Tablet] 1 each PO BID 7 Days #14 tablet Azithromycin [Zithromax] 250 mg PO Q24H 7 Days #7 tablet predniSONE 40 mg PO WITHBREAKFAST #5 tablet Home Medications: Home Meds Aspirin 81 mg PO Q2D 09/04/17 [History] Clopidogrel [Plavix] 75 mg PO DAILY 09/04/17 [History] Diltiazem [Cardizem CD] 120 mg PO DAILY 09/04/17 [History] Simvastatin [Zocor] 10 mg PO BEDTIME 09/04/17 [History] Amoxicillin/Potassium Clav [Augmentin 875-125 Tablet] 1 each PO BID 7 Days #14 tablet 10/02/18 [Rx] Azithromycin [Zithromax] 250 mg PO Q24H 7 Days #7 tablet 10/02/18 [Rx] predniSONE 40 mg PO WITHBREAKFAST #5 tablet 10/02/18 [Rx] Patient Handouts: Chronic Obstructive Pulmonary Disease Exacerbation, Easy-to- Read, Hypoxia, Amoxicillin; Clavulanic Acid tablets, Azithromycin tablets, Prednisone tablets Referrals: Genny Gonzalez,Any [Ordering Only Provider] - Korey Canseco MD [Physician] - 10/16/18 9:45 am - Discharge Summary/Plan Comment DC Time >30 min.: No - Patient Data Vitals - Most Recent: Last Vital Signs Temp 98.3 F 10/02/18 17:01 Pulse 77 10/02/18 17:01 Resp 16 10/02/18 17:01 BP 102/62 10/02/18 17:01 Pulse Ox 96 10/02/18 17:01 Weight - Most Recent: 65.459 kg I&O - Last 24 hours: Intake & Output 10/02/18 10/02/18 10/02/18 06:59 14:59 22:59 Intake Total 1399 800 Output Total 0 Balance 1399 800 Lab Results - Last 24 hrs: Laboratory Results - last 24 hr 10/02/18 10/02/18 Range/Units 05:55 05:55 WBC 17.40 H (4.0-11.0) K/uL RBC 3.42 L (4.50-5.90) M/uL Hgb 12.3 L (13.0-17.0) g/dL Hct 35.6 L (38.0-50.0) % MCV 104.1 H (80.0-98.0) fL MCH 36.0 H (27.0-32.0) pg MCHC 34.6 (31.0-37.0) g/dL RDW Std Deviation 45.7 (28.0-62.0) fl RDW Coeff of Anibal 12 (11.0-15.0) % Plt Count 174 (150-400) K/uL MPV 11.00 (7.40-12.00) fL Add Manual Diff YES Neutrophils % (Manual) 86 H (48.0-80.0) % Band Neutrophils % 5 % Lymphocytes % (Manual) 6 L (16.0-40.0) % Monocytes % (Manual) 3 (0.0-15.0) % Nucleated RBC % 0.0 /100WBC Absolute Seg Neuts 15.0 H (1.4-5.7) Band Neutrophils # 0.9 Lymphocytes # (Manual) 1.0 (0.6-2.4) Monocytes # (Manual) 0.5 (0.0-0.8) Nucleated RBCs # 0 K/uL Sodium 134 L (136-148) mmol/L Potassium 4.2 (3.5-5.1) mmol/L Chloride 100 (98-107) mmol/L Carbon Dioxide 23.7 (21.0-32.0) mmol/L BUN 25 H (7.0-18.0) mg/dL Creatinine 0.9 (0.8-1.3) mg/dL Est Cr Clr Drug Dosing 63.64 mL/min Estimated GFR (MDRD) > 60.0 ml/min Glucose 121 H (74-106) mg/dL Calcium 8.0 L (8.5-10.1) mg/dL Total Bilirubin 0.7 (0.2-1.0) mg/dL AST 12 L (15-37) IU/L ALT 10 L (14-63) IU/L Alkaline Phosphatase 36 L (46-116) U/L Total Protein 5.4 L (6.4-8.2) g/dL Albumin 2.5 L (3.4-5.0) g/dL Globulin 2.9 (2.6-4.0) g/dL Albumin/Globulin Ratio 0.9 (0.9-1.6) TRACY Results - Last 24 hrs: Microbiology 10/01/18 07:28 Aerobic Blood Culture - Preliminary Blood - Venous - Lab Draw NO GROWTH AFTER 1 DAY Anaerobic Blood Culture - Preliminary NO GROWTH AFTER 1 DAY 10/01/18 07:17 Aerobic Blood Culture - Preliminary Blood - Venous NO GROWTH AFTER 1 DAY Anaerobic Blood Culture - Preliminary NO GROWTH AFTER 1 DAY Med Orders - Current: Current Medications Acetaminophen (Tylenol) 650 mg PO Q4H PRN PRN Reason: Pain (Mild 1-3)/fever Albuterol/Ipratropium (Duoneb 3.0-0.5 Mg/3 Ml) 3 ml NEB Q4HRRT PRN PRN Reason: Shortness Of Breath/wheezing Azithromycin (Zithromax) 500 mg PO Q24H [facility] Last Admin: 10/02/18 08:55 Dose: 500 mg Enoxaparin Sodium (Lovenox) 40 mg SUBCUT Q24H [facility] Last Admin: 10/02/18 12:38 Dose: 40 mg Ceftriaxone Sodium/Dextrose 2 (gm/ Premix) 50 mls @ 100 mls/hr IV Q24H [facility] Last Admin: 10/02/18 12:38 Dose: 100 mls/hr Ondansetron HCl (Zofran Odt) 4 mg PO Q4H PRN PRN Reason: nausea, able to take PO Ondansetron HCl (Zofran) 4 mg IVPUSH Q4H PRN PRN Reason: Nausea Pantoprazole Sodium (Protonix) 40 mg PO DAILY [facility] Last Admin: 10/02/18 08:03 Dose: 40 mg Prednisone (Prednisone) 40 mg PO WITHBREAKFAST [facility] Discontinued Medications Albuterol/Ipratropium (Duoneb 3.0-0.5 Mg/3 Ml) 3 ml NEB ONETIME ONE Stop: 10/01/18 06:52 Last Admin: 10/01/18 06:55 Dose: 3 ml Albuterol/Ipratropium (Duoneb 3.0-0.5 Mg/3 Ml) Confirm Administered Dose 3 ml .ROUTE .STK-MED ONE Stop: 10/01/18 06:51 Last Admin: 10/01/18 09:29 Dose: Not Given Albuterol/Ipratropium (Duoneb 3.0-0.5 Mg/3 Ml) Confirm Administered Dose 3 ml .ROUTE .STK-MED ONE Stop: 10/01/18 06:53 Last Admin: 10/01/18 06:55 Dose: Not Given Piperacillin Sod/Tazobactam (Sod 3.375 gm/ Sodium Chloride) 50 mls @ 100 mls/ hr IV ONETIME ONE Stop: 10/01/18 07:34 Last Admin: 10/01/18 08:05 Dose: 100 mls/hr Vancomycin HCl 1 gm/ Sodium (Chloride) 250 mls @ 166 mls/hr IV ONETIME ONE Stop: 10/01/18 08:35 Last Admin: 10/01/18 14:07 Dose: Not Given Vancomycin HCl 1 gm/ Sodium (Chloride) 250 mls @ 250 mls/hr IV ONETIME ONE Stop: 10/01/18 09:04 Last Admin: 10/01/18 08:54 Dose: 250 mls/hr Piperacillin Sod/Tazobactam (Sod 3.375 gm/ Sodium Chloride) 100 mls @ 200 mls/ hr IV ONETIME ONE Stop: 10/01/18 08:59 Last Admin: 10/01/18 10:34 Dose: Not Given Sodium Chloride (Normal Saline) 1,000 mls @ 100 mls/hr IV ASDIRECTED [facility] Stop: 10/01/18 21:29 Last Admin: 10/01/18 17:56 Dose: 100 mls/hr Methylprednisolone Sodium Succinate (Solu-Medrol) 125 mg IV ONETIME ONE Stop: 10/01/18 06:53 Last Admin: 10/01/18 06:55 Dose: 125 mg Methylprednisolone Sodium Succinate (Solu-Medrol) Confirm Administered Dose 125 mg .ROUTE .STK-MED ONE Stop: 10/01/18 06:51 Last Admin: 10/01/18 06:55 Dose: Not Given Methylprednisolone Sodium Succinate (Solu-Medrol) 125 mg IVPUSH DAILY [facility] Last Admin: 10/02/18 08:03 Dose: 125 mg Morphine Sulfate (Morphine) 2 mg IVPUSH Q2H PRN PRN Reason: Pain (severe 7-10) Stop: 10/02/18 11:28 Potassium Chloride (Klor-Con M20) 40 meq PO ONETIME ONE Stop: 10/01/18 13:39 Last Admin: 10/01/18 14:10 Dose: 40 meq <Negrito Gresham J - Last Filed: 10/06/18 19:40> - Patient Data Vitals - Most Recent: Last Vital Signs Temp 36.8 C 10/02/18 17:01 Pulse 77 10/02/18 17:01 Resp 16 10/02/18 17:01 BP 102/62 10/02/18 17:01 Pulse Ox 96 10/02/18 17:01 TRACY Results - Last 24 hrs: Microbiology 10/01/18 07:28 Aerobic Blood Culture - Final Blood - Venous - Lab Draw NO GROWTH AFTER 5 DAYS Anaerobic Blood Culture - Final NO GROWTH AFTER 5 DAYS 10/01/18 07:17 Aerobic Blood Culture - Final Blood - Venous NO GROWTH AFTER 5 DAYS Anaerobic Blood Culture - Final NO GROWTH AFTER 5 DAYS Med Orders - Current: Current Medications Discontinued Medications Acetaminophen (Tylenol) 650 mg PO Q4H PRN PRN Reason: Pain (Mild 1-3)/fever Albuterol/Ipratropium (Duoneb 3.0-0.5 Mg/3 Ml) 3 ml NEB ONETIME ONE Stop: 10/01/18 06:52 Last Admin: 10/01/18 06:55 Dose: 3 ml Albuterol/Ipratropium (Duoneb 3.0-0.5 Mg/3 Ml) Confirm Administered Dose 3 ml .ROUTE .STK-MED ONE Stop: 10/01/18 06:51 Last Admin: 10/01/18 09:29 Dose: Not Given Albuterol/Ipratropium (Duoneb 3.0-0.5 Mg/3 Ml) Confirm Administered Dose 3 ml .ROUTE .STK-MED ONE Stop: 10/01/18 06:53 Last Admin: 10/01/18 06:55 Dose: Not Given Albuterol/Ipratropium (Duoneb 3.0-0.5 Mg/3 Ml) 3 ml NEB Q4HRRT PRN PRN Reason: Shortness Of Breath/wheezing Azithromycin (Zithromax) 500 mg PO Q24H [facility] Last Admin: 10/02/18 08:55 Dose: 500 mg Enoxaparin Sodium (Lovenox) 40 mg SUBCUT Q24H [facility] Last Admin: 10/02/18 12:38 Dose: 40 mg Piperacillin Sod/Tazobactam (Sod 3.375 gm/ Sodium Chloride) 50 mls @ 100 mls/ hr IV ONETIME ONE Stop: 10/01/18 07:34 Last Admin: 10/01/18 08:05 Dose: 100 mls/hr Vancomycin HCl 1 gm/ Sodium (Chloride) 250 mls @ 166 mls/hr IV ONETIME ONE Stop: 10/01/18 08:35 Last Admin: 10/01/18 14:07 Dose: Not Given Vancomycin HCl 1 gm/ Sodium (Chloride) 250 mls @ 250 mls/hr IV ONETIME ONE Stop: 10/01/18 09:04 Last Admin: 10/01/18 08:54 Dose: 250 mls/hr Piperacillin Sod/Tazobactam (Sod 3.375 gm/ Sodium Chloride) 100 mls @ 200 mls/ hr IV ONETIME ONE Stop: 10/01/18 08:59 Last Admin: 10/01/18 10:34 Dose: Not Given Sodium Chloride (Normal Saline) 1,000 mls @ 100 mls/hr IV ASDIRECTED [facility] Stop: 10/01/18 21:29 Last Admin: 10/01/18 17:56 Dose: 100 mls/hr Ceftriaxone Sodium/Dextrose 2 (gm/ Premix) 50 mls @ 100 mls/hr IV Q24H [facility] Last Admin: 10/02/18 12:38 Dose: 100 mls/hr Methylprednisolone Sodium Succinate (Solu-Medrol) 125 mg IV ONETIME ONE Stop: 10/01/18 06:53 Last Admin: 10/01/18 06:55 Dose: 125 mg Methylprednisolone Sodium Succinate (Solu-Medrol) Confirm Administered Dose 125 mg .ROUTE .STK-MED ONE Stop: 10/01/18 06:51 Last Admin: 10/01/18 06:55 Dose: Not Given Methylprednisolone Sodium Succinate (Solu-Medrol) 125 mg IVPUSH DAILY [facility] Last Admin: 10/02/18 08:03 Dose: 125 mg Morphine Sulfate (Morphine) 2 mg IVPUSH Q2H PRN PRN Reason: Pain (severe 7-10) Stop: 10/02/18 11:28 Ondansetron HCl (Zofran Odt) 4 mg PO Q4H PRN PRN Reason: nausea, able to take PO Ondansetron HCl (Zofran) 4 mg IVPUSH Q4H PRN PRN Reason: Nausea Pantoprazole Sodium (Protonix) 40 mg PO DAILY [facility] Last Admin: 10/02/18 08:03 Dose: 40 mg Potassium Chloride (Klor-Con M20) 40 meq PO ONETIME ONE Stop: 10/01/18 13:39 Last Admin: 10/01/18 14:10 Dose: 40 meq Prednisone (Prednisone) 40 mg PO WITHBREAKFAST [facility] - Free Text/Narrative Note: I have evaluated the patient. I have discussed findings and treatment plan with resident. I agree with the assessment and plan outlined in the following note.
[2018-10-03] MEDS ORDERED: predniSONE 20 MG Tab PO SCH (08:00)
== END 2018-10-02 17:45 | disposition home or self-care (01) | DRG 190 ==
LOC: MW.ED 06:38 → MW.ICU 08:11 → UNDOADMIN 09:06 → MW.ICU 09:06 → UNDODISIN 10-02 17:45
PROVIDERS: ADMIT Internal Medicine; ATTEND Internal Medicine
PROC: 5A09357 Assistance with Respiratory Ventilation, Less than 24 Consecutive Hours, Continuous Positive Airway Pressure (ICD-10-PCS; principal; 2018-10-01)
DX: J44.1 Chronic obstructive pulmonary disease with (acute) exacerbation (principal); J96.21 Acute and chronic respiratory failure with hypoxia; E87.1 Hypo-osmolality and hyponatremia; R09.02 Hypoxemia; J43.9 Emphysema, unspecified; H54.7 Unspecified visual loss; E78.00 Pure hypercholesterolemia, unspecified; I25.10 Atherosclerotic heart disease of native coronary artery without angina pectoris; I10 Essential (primary) hypertension; F17.210 Nicotine dependence, cigarettes, uncomplicated; E87.6 Hypokalemia; G89.29 Other chronic pain; D53.9 Nutritional anemia, unspecified; M54.9 Dorsalgia, unspecified; F32.9 Major depressive disorder, single episode, unspecified; Z88.1 Allergy status to other antibiotic agents; Z79.02 Long term (current) use of antithrombotics/antiplatelets; Z79.82 Long term (current) use of aspirin; Z79.899 Other long term (current) drug therapy
CPT/HCPCS: 36415; 36600; 71045; 80048; 82803; 83605; 83880; 84484; 85025; 85610; 87040 ×2; 93005; 94640; 94660; 96365; 96367; 96375; 99285; J2543; J2930; J3370; J7050 ×2; 71275; 71275-26; 80053; 83735; 99284; A9270-GY; J0696; J1650; J7040; J7620-GY

== ENCOUNTER 2019-12-23 09:43 | Observation (INO) | payer MEDICARE, OTHER ==
[2019-12-23] MEDS ORDERED: Lactated Ringers 1,000 ML IV ONE (09:49)
[2019-12-23] MEDS ORDERED: Sodium Chloride 0.9% 10 ML Syringe FLUSH PRN (09:49)
[2019-12-23] MEDS ORDERED: Sodium Chloride 0.9% 2.5 ML Syringe FLUSH PRN (09:49)
[2019-12-23] MEDS ORDERED: Pantoprazole 40 MG in Sodium Chloride 0.9% 20 ML IVPUSH ONE (09:51)
--- NOTE | 2019-12-23 09:53 | EDM.PDOC ---
ED HPI GENERAL MEDICAL PROBLEM - General Chief Complaint: Trauma Stated Complaint: EMS ARRIVAL Time Seen by Provider: 12/23/19 09:47 Source of Information: Reports: Patient, EMS History Limitations: Reports: No Limitations - History of Present Illness INITIAL COMMENTS - FREE TEXT/NARRATIVE: 79-year-old male with history of CAD presents by EMS for syncopal episode and GI bleed. He felt like he needed to have a bowel movement today and felt weak and fell backwards onto his lower back. Admits to positive LOC. Denies headache, neck pain. When EMS arrived they found 200 to 300 cc of bright red blood per rectum. Patient denies fever, chills, headache, chest pain, shortness of breath, abdominal pain, focal numbness or weakness. ROS: A 10-point review of systems, other than pertinent positives and negatives as stated per HPI, is otherwise negative Past medical history: No additional pertinent history Past Surgical history: No additional pertinent history Social history: No additional pertinent history Family history: No additional pertinent history PHYSICAL EXAM General: AOx4, GCS = 15, No distress HEENT: dry mucous membrane Neck: supple, no meningismus, no Kernig or Brudzinski Cardiac: S1S2 RRR Respiratory: CTAB, no crackles or rales, no wheezing Abdomen: Soft, nontender, no rebound or guarding, nondistended, no pulsatile mass. Hemocult positive. Back: nontender to C/T/L-spine. Musculoskeletal: NVI distally, no deformity, skin abrasion to the right distal humerus, no deformity or tenderness. Neuro: No focal deficits low back Pain Score (Numeric/FACES): 2 - Related Data Allergies Allergy/AdvReac Type Severity Reaction Status Date / Time levofloxacin [From Levaquin] Allergy Body Aches Verified 12/23/19 12:38 Home Meds: Home Meds Aspirin 81 mg PO Q2D 09/04/17 [History] Clopidogrel [Plavix] 75 mg PO DAILY 09/04/17 [History] Diltiazem [Cardizem CD] 120 mg PO DAILY 09/04/17 [History] Simvastatin [Zocor] 10 mg PO BEDTIME 09/04/17 [History] Amoxicillin/Potassium Clav [Augmentin 875-125 Tablet] 1 each PO BID 7 Days #14 tablet 10/02/18 [Rx] Amoxicillin/Potassium Clav [Amox-Clav 875-125 mg Tablet] 1 tab PO BID 12/23/19 [History] Colchicine 0.6 mg PO DAILY 12/23/19 [History] Fluticasone Propionate 2 sprays NASBOTH DAILY PRN 12/23/19 [History] lisinopriL [Prinivil] 20 mg PO DAILY 12/23/19 [History] Past Medical History HEENT History: Reports: Impaired Vision Cardiovascular History: Reports: CAD, High Cholesterol, Hypertension, Stents Other Cardiovascular History: High blood pressure/Heart Problems Respiratory History: Reports: COPD Gastrointestinal History: Reports: None Genitourinary History: Reports: None Musculoskeletal History: Reports: Back Pain, Chronic Other Musculoskeletal History: 3 back surgeries. epidural shots- last injection on 09/23 Neurological History: Reports: None Psychiatric History: Reports: Depression Endocrine/Metabolic History: Reports: None Hematologic History: Reports: None Immunologic History: Reports: None Oncologic (Cancer) History: Reports: None Dermatologic History: Reports: None - Infectious Disease History Infectious Disease History: Reports: Chicken Pox - Past Surgical History Other Cardiovascular Surgeries/Procedures: cardiac stents 2010 Social & Family History - Family History Family Medical History: Noncontributory - Caffeine Use Caffeine Use: Reports: Coffee Review of Systems - Review of Systems Review Of Systems: See Below (see dictation) ED EXAM, GENERAL - Physical Exam Exam: See Below (see dictation) #1 Interpretation EKG Interpretation Comments: Heart rate = 75 bpm, normal sinus rhythm, normal QRS interval, no STEMI. EKG and rhythm strip interpreted by me at [id number] Course - Vital Signs Last Recorded V/S: Last Vital Signs Temp 97.7 F 12/23/19 12:05 Pulse 85 12/23/19 14:29 Resp 18 12/23/19 12:05 BP 134/77 12/23/19 14:29 Pulse Ox 96 12/23/19 12:05 - Orders/Labs/Meds Orders: Active Orders 24 hr Category Date Time Status Cardiac Monitoring [RC] . DIRECTED Care 12/23/19 09:49 Active UA W/TRACY RFLX IF INDICATED [URIN] Stat Lab 12/23/19 09:49 Ordered Sodium Chloride 0.9% [Saline Flush] Med 12/23/19 09:49 Active 10 ml FLUSH ASDIRECTED PRN Sodium Chloride 0.9% [Saline Flush] Med 12/23/19 09:49 Active 2.5 ml FLUSH ASDIRECTED PRN Saline Lock Insert [OM.PC] Stat Oth 12/23/19 09:49 Ordered Medication Orders Azithromycin (Zithromax) 500 mg PO Q24H [facility] Last Admin: 12/23/19 16:05 Dose: 500 mg Documented by: KIMBERLY Diltiazem HCl (Cardizem Cd) 120 mg PO DAILY [facility] Last Admin: 12/23/19 14:29 Dose: 120 mg Documented by: KIMBERLY Fluticasone Propionate (Flonase) 0 gm NASBOTH DAILY PRN PRN Reason: NASAL CONGESTION Last Admin: 12/23/19 14:30 Dose: 2 spray Documented by: KIMBERLY Folic Acid (Folic Acid) 1 mg IV DAILY [facility] Last Admin: 12/23/19 14:30 Dose: 1 mg Documented by: KIMBERLY Lactated Ringer's (Ringers, Lactated) 1,000 mls @ 75 mls/hr IV ASDIRECTED [facility] Last Admin: 12/23/19 14:33 Dose: 75 mls/hr Documented by: KIMBERLY Pantoprazole Sodium 40 mg/ (Sodium Chloride) 10 mls @ 300 mls/hr IV Q12H [facility] Last Admin: 12/23/19 14:28 Dose: 300 mls/hr Documented by: RITAHR Thiamine HCl 100 mg/ Sodium (Chloride) 101 mls @ 202 mls/hr IV DAILY [facility] Last Admin: 12/23/19 15:13 Dose: 202 mls/hr Documented by: KIMBERLY Lidocaine (Lidoderm 5%) 700 mg TOP Q24H [facility] Last Admin: 12/23/19 16:03 Dose: 700 mg Documented by: KIMBERLY Lisinopril (Prinivil) 20 mg PO DAILY [facility] Last Admin: 12/23/19 14:29 Dose: 20 mg Documented by: KIMBERLY Lorazepam (Ativan) 0 mg IVPUSH Q4H PRN; Protocol PRN Reason: CIWAA Ondansetron HCl (Zofran) 4 mg IVPUSH Q4H PRN PRN Reason: Nausea Sodium Chloride (Saline Flush) 10 ml FLUSH ASDIRECTED PRN PRN Reason: Keep Vein Open Last Admin: 12/23/19 10:11 Dose: 10 ml Documented by: MARIA L Sodium Chloride (Saline Flush) 2.5 ml FLUSH ASDIRECTED PRN PRN Reason: Keep Vein Open Last Admin: 12/23/19 10:11 Dose: 2.5 ml Documented by: MARIA L Labs: Laboratory Tests 12/23/19 12/23/19 12/23/19 Range/Units 09:45 09:45 09:45 WBC 14.34 H (4.0-11.0) K/uL RBC 3.73 L (4.50-5.90) M/uL Hgb 13.3 (13.0-17.0) g/dL Hct 40.1 (38.0-50.0) % MCV 107.5 H (80.0-98.0) fL MCH 35.7 H (27.0-32.0) pg MCHC 33.2 (31.0-37.0) g/dL RDW Std Deviation 49.8 (28.0-62.0) fl RDW Coeff of Anibal 13 (11.0-15.0) % Plt Count 165 (150-400) K/uL MPV 11.20 (7.40-12.00) fL Neut % (Auto) 76.6 (48.0-80.0) % Lymph % (Auto) 13.7 L (16.0-40.0) % [place] % (Auto) 8.6 (0.0-15.0) % Eos % (Auto) 1.0 (0.0-7.0) % Baso % (Auto) 0.1 (0.0-1.5) % Neut # (Auto) 11.0 H (1.4-5.7) K/uL Lymph # (Auto) 2.0 (0.6-2.4) K/uL [place] # (Auto) 1.2 H (0.0-0.8) K/uL Eos # (Auto) 0.1 (0.0-0.7) K/uL Baso # (Auto) 0.0 (0.0-0.1) K/uL Nucleated RBC % 0.0 /100WBC Nucleated RBCs # 0 K/uL INR 0.98 Sodium 140 (136-148) mmol/L Potassium 3.4 L (3.5-5.1) mmol/L Chloride 105 (98-107) mmol/L Carbon Dioxide 24.0 (21.0-32.0) mmol/L BUN 12 (7.0-18.0) mg/dL Creatinine 1.1 (0.8-1.3) mg/dL Est Cr Clr Drug Dosing 54.45 mL/min Estimated GFR (MDRD) > 60.0 ml/min Glucose 94 (74-106) mg/dL Calcium 8.3 L (8.5-10.1) mg/dL Phosphorus 2.9 (2.6-4.7) mg/dL Magnesium 2.3 (1.8-2.4) mg/dL Total Bilirubin 0.6 (0.2-1.0) mg/dL AST 16 (15-37) IU/L ALT 21 (14-63) IU/L Alkaline Phosphatase 56 (46-116) U/L Troponin I < 0.050 (0.000-0.056) ng/mL B-Natriuretic Peptide (<100) PG/ML Total Protein 6.1 L (6.4-8.2) g/dL Albumin 2.8 L (3.4-5.0) g/dL Globulin 3.3 (2.6-4.0) g/dL Albumin/Globulin Ratio 0.9 (0.9-1.6) SARS-CoV-2 RNA (REBEKA) (NEGATIVE) 12/23/19 12/23/19 Range/Units 09:45 10:30 WBC (4.0-11.0) K/uL RBC (4.50-5.90) M/uL Hgb (13.0-17.0) g/dL Hct (38.0-50.0) % MCV (80.0-98.0) fL MCH (27.0-32.0) pg MCHC (31.0-37.0) g/dL RDW Std Deviation (28.0-62.0) fl RDW Coeff of Anibal (11.0-15.0) % Plt Count (150-400) K/uL MPV (7.40-12.00) fL Neut % (Auto) (48.0-80.0) % Lymph % (Auto) (16.0-40.0) % [place] % (Auto) (0.0-15.0) % Eos % (Auto) (0.0-7.0) % Baso % (Auto) (0.0-1.5) % Neut # (Auto) (1.4-5.7) K/uL Lymph # (Auto) (0.6-2.4) K/uL [place] # (Auto) (0.0-0.8) K/uL Eos # (Auto) (0.0-0.7) K/uL Baso # (Auto) (0.0-0.1) K/uL Nucleated RBC % /100WBC Nucleated RBCs # K/uL INR Sodium (136-148) mmol/L Potassium (3.5-5.1) mmol/L Chloride (98-107) mmol/L Carbon Dioxide (21.0-32.0) mmol/L BUN (7.0-18.0) mg/dL Creatinine (0.8-1.3) mg/dL Est Cr Clr Drug Dosing mL/min Estimated GFR (MDRD) ml/min Glucose (74-106) mg/dL Calcium (8.5-10.1) mg/dL Phosphorus (2.6-4.7) mg/dL Magnesium (1.8-2.4) mg/dL Total Bilirubin (0.2-1.0) mg/dL AST (15-37) IU/L ALT (14-63) IU/L Alkaline Phosphatase (46-116) U/L Troponin I (0.000-0.056) ng/mL B-Natriuretic Peptide 19 (<100) PG/ML Total Protein (6.4-8.2) g/dL Albumin (3.4-5.0) g/dL Globulin (2.6-4.0) g/dL Albumin/Globulin Ratio (0.9-1.6) SARS-CoV-2 RNA (REBEKA) NEGATIVE (NEGATIVE) Meds: Medications Generic Name Dose Route Start Last Admin Trade Name Freq PRN Reason Stop Dose Admin Azithromycin 500 mg 12/23/19 15:30 12/23/19 16:05 Zithromax PO 500 mg Q24H LITTLE Administration Diltiazem HCl 120 mg 12/23/19 13:15 12/23/19 14:29 Cardizem Cd PO 120 mg DAILY LITTLE Administration Fluticasone Propionate 0 gm 12/23/19 13:12 12/23/19 14:30 Flonase NASBOTH 2 spray DAILY PRN Administration NASAL CONGESTION Folic Acid 1 mg 12/23/19 14:15 12/23/19 14:30 Folic Acid IV 1 mg DAILY LITTLE Administration Lactated Ringer's 1,000 mls @ 75 mls/hr 12/23/19 13:15 12/23/19 14:33 Ringers, Lactated IV 75 mls/hr ASDIRECTED LITTLE Administration Pantoprazole Sodium 40 mg/ 10 mls @ 300 mls/hr 12/23/19 13:15 12/23/19 14:28 Sodium Chloride IV 300 mls/hr Q12H LITTLE Administration Thiamine HCl 100 mg/ Sodium 101 mls @ 202 mls/hr 12/23/19 14:15 12/23/19 15:13 Chloride IV 202 mls/hr DAILY LITTLE Administration Lidocaine 700 mg 12/23/19 15:30 12/23/19 16:03 Lidoderm 5% TOP 700 mg Q24H LITTLE Administration Lisinopril 20 mg 12/23/19 13:15 12/23/19 14:29 Prinivil PO 20 mg DAILY LITTLE Administration Lorazepam 0 mg 12/23/19 14:05 Ativan IVPUSH Q4H PRN CIWAA Protocol Ondansetron HCl 4 mg 12/23/19 13:04 Zofran IVPUSH Q4H PRN Nausea Sodium Chloride 10 ml 12/23/19 09:49 12/23/19 10:11 Saline Flush FLUSH 10 ml ASDIRECTED PRN Administration Keep Vein Open Sodium Chloride 2.5 ml 12/23/19 09:49 12/23/19 10:11 Saline Flush FLUSH 2.5 ml ASDIRECTED PRN Administration Keep Vein Open Discontinued Medications Generic Name Dose Route Start Last Admin Trade Name Freq PRN Reason Stop Dose Admin Lactated Ringer's 1,000 mls @ 999 mls/hr 12/23/19 09:49 12/23/19 10:06 Ringers, Lactated IV 12/23/19 10:49 999 mls/hr .BOLUS ONE Administration Pantoprazole Sodium 40 mg/ 20 mls @ 420 mls/hr 12/23/19 09:51 12/23/19 10:06 Sodium Chloride IVPUSH 12/23/19 09:53 420 mls/hr ONETIME ONE Administration Potassium Chloride 40 meq/ 100 mls @ 25 mls/hr 12/23/19 14:27 12/23/19 16:06 Premix IV 12/23/19 18:26 25 mls/hr ONETIME ONE Administration - Re-Assessments/Exams Free Text/Narrative Re-Assessment/Exam: 12/23/19 09:53 ordered IV fluids, 40 mg IV Protonix. 12/23/19 10:[address] jenkins, who agrees to admit patient. The hospitalist's documentation supersedes all other documentation on this patient with regard to any conflicts or discrepancies from this point forward. Any emergency conditions have been treated to the ability of the ED prior to admission. Departure - Departure Time of Disposition: 11:00 Disposition: Refer to Observation Condition: Good Clinical Impression: Syncope, GI bleed - Discharge Information Sepsis Event Note (ED) - Focused Exam Vital Signs: Vital Signs Temp Pulse Resp BP Pulse Ox 12/23/19 09:54 97.7 F 93 15 109/68 93 L - My Orders Last 24 Hours: My Active Orders 12/23/19 09:49 Cardiac Monitoring [RC] . DIRECTED UA W/TRACY RFLX IF INDICATED [URIN] Stat Sodium Chloride 0.9% [Saline Flush] 10 ml FLUSH ASDIRECTED PRN Sodium Chloride 0.9% [Saline Flush] 2.5 ml FLUSH ASDIRECTED PRN Saline Lock Insert [OM.PC] Stat - Assessment/Plan Last 24 Hours: My Active Orders 12/23/19 09:49 Cardiac Monitoring [RC] . DIRECTED UA W/TRACY RFLX IF INDICATED [URIN] Stat Sodium Chloride 0.9% [Saline Flush] 10 ml FLUSH ASDIRECTED PRN Sodium Chloride 0.9% [Saline Flush] 2.5 ml FLUSH ASDIRECTED PRN Saline Lock Insert [OM.PC] Stat
--- NOTE | 2019-12-23 10:20 | CR ---
INDICATION: Syncope TECHNIQUE: Chest 1 views COMPARISON: 10/01/2018 FINDINGS: Cardiovascular and mediastinum: Heart size and vasculature are normal in caliber and appearance. Lungs and pleural spaces: Lungs are clear. No sign of infiltrate or mass. No sign of pleural effusion. No pneumothorax. Bones and soft tissues: No significant findings. IMPRESSION: No acute findings and no significant changes from the prior exam. Dictated by Tyshawn Colon MD @ Dec 23 2019 10:17AM Signed by Dr. Tyshawn Colon @ Dec 23 2019 10:19AM
[2019-12-23 10:34] LABS: BLOOD UREA NITROGEN,BUN 12 mg/dL (7.0-18.0); CHLORIDE,CL 105 mmol/L (98-107); GLUCOSE RANDOM 94 mg/dL (74-106); POTASSIUM,K 3.4 mmol/L (3.5-5.1); SODIUM,NA 140 mmol/L (136-148)
[2019-12-23] MEDS ORDERED: Ondansetron 4 MG/2 ML SDV IVPUSH PRN (13:04)
[2019-12-23] MEDS ORDERED: Fluticasone Propionate Nasal Spray 16 GM Bottle NASBOTH PRN (13:12)
[2019-12-23] MEDS ORDERED: LORazepam 2 MG/ML SDV IVPUSH PRN (14:05)
--- NOTE | 2019-12-23 14:16 | PCM.HP.2 ---
H&P History of Present Illness - General Date of Service: 12/23/19 Admit Problem/Dx: Admission Diagnosis/Problem Admission Diagnosis/Problem Syncope Source of Information: Patient History Limitations: Reports: No Limitations - History of Present Illness Initial Comments - Free Text/Narative: 79-year-old male presented after fainting while sitting down to have bowel movement earlier this morning. Patient has a PMH of CAD s/p stents, HLD, HTN, COPD and chronic back pain. He reports that his bowel movement was "just blood" and he then fainted and fell off his toilet seat. He is unsure how long he was lying on the floor but when he woke up he noted that there was a small pool of blood around him. Per chart review, EMS found patient with approximately 200-300 cc of bleeding per his rectum. Patient reports that he does not have a history of fainting or bloody stools recently. He does report having hemorrhoids but they have not caused any bleeding recently. He was in his normal state of health otherwise earlier this morning. He denies having any fevers, chills, sore throat, cough, SOB, chest pain, nausea, vomiting, abdominal pain, diarrhea, numbness or tingling in extremities. Patient admits to drinking 2-3 shots of whiskey nightly and smokes 3-4 cigarettes daily. Denies any illicit drug use. In the ER, patient found to be Hemoccult positive. Hgb level was 13 and creatinine 3.4. EKG was unremarkable. CXR was negative. COVID19 test negative. Patient given 1 L IV LR bolus. Patient admitted for further evaluation and treatment. low back Pain Score (Numeric/FACES): 2 - Related Data Allergies/Adverse Reactions: Allergies Allergy/AdvReac Type Severity Reaction Status Date / Time levofloxacin [From Levaquin] Allergy Body Aches Verified 12/23/19 12:38 Home Medications: Home Meds Aspirin 81 mg PO Q2D 09/04/17 [History] Clopidogrel [Plavix] 75 mg PO DAILY 09/04/17 [History] Diltiazem [Cardizem CD] 120 mg PO DAILY 09/04/17 [History] Simvastatin [Zocor] 10 mg PO BEDTIME 09/04/17 [History] Amoxicillin/Potassium Clav [Augmentin 875-125 Tablet] 1 each PO BID 7 Days #14 tablet 10/02/18 [Rx] Amoxicillin/Potassium Clav [Amox-Clav 875-125 mg Tablet] 1 tab PO BID 12/23/19 [History] Colchicine 0.6 mg PO DAILY 12/23/19 [History] Fluticasone Propionate 2 sprays NASBOTH DAILY PRN 12/23/19 [History] lisinopriL [Prinivil] 20 mg PO DAILY 12/23/19 [History] Past Medical History HEENT History: Reports: Impaired Vision Cardiovascular History: Reports: CAD, High Cholesterol, Hypertension, Stents Other Cardiovascular History: High blood pressure/Heart Problems Respiratory History: Reports: COPD Gastrointestinal History: Reports: None Genitourinary History: Reports: None Musculoskeletal History: Reports: Back Pain, Chronic Other Musculoskeletal History: 3 back surgeries. epidural shots- last injection on 09/23 Neurological History: Reports: None Psychiatric History: Reports: Depression Endocrine/Metabolic History: Reports: None Hematologic History: Reports: None Immunologic History: Reports: None Oncologic (Cancer) History: Reports: None Dermatologic History: Reports: None - Infectious Disease History Infectious Disease History: Reports: Chicken Pox, Mumps - Past Surgical History Head Surgeries/Procedures: Reports: None Other Cardiovascular Surgeries/Procedures: cardiac stents 2010 Social & Family History - Family History Family Medical History: Noncontributory - Tobacco Use Tobacco Use Status *Q: Current Every Day Tobacco User Years of Tobacco use: 60 Packs/Tins Daily: 0.2 Used Tobacco, but Quit: No Second Hand Smoke Exposure: Yes - Caffeine Use Caffeine Use: Reports: Coffee - Alcohol Use Days Per Week of Alcohol Use: 7 Number of Drinks Per Day: 7 Total Drinks Per Week: 49 - Recreational Drug Use Recreational Drug Use: No H&P Review of Systems - Review of Systems: Review Of Systems: See Below Exam - Exam Exam: See Below - Vital Signs Vital Signs: Last Vital Signs Temp 36.5 C 12/23/19 12:05 Pulse 85 12/23/19 12:05 Resp 18 12/23/19 12:05 BP 134/77 12/23/19 12:05 Pulse Ox 96 12/23/19 12:05 Weight: 73.255 kg - Exam General: Alert, Oriented, Cooperative HEENT: Conjunctiva Clear, EOMI, Hearing Intact, Posterior Pharynx Clear, Pupils Equal, Pupils Reactive Neck: Supple, Trachea Midline Lungs: Clear to Auscultation, Normal Respiratory Effort Cardiovascular: Regular Rate, Regular Rhythm GI/Abdominal Exam: Normal Bowel Sounds, Soft, Non-Tender, No Distention Extremities: Normal Inspection Peripheral Pulses: 2+: Radial (L), Radial (R) Skin: Warm, Dry, Intact Neurological: Cranial Nerves Intact, Strength Equal Bilateral, Normal Speech, Normal Tone Neuro Extensive - Mental Status: Alert, Oriented x3, Normal Mood/Affect Psychiatric: Alert, Normal Affect, Normal Mood - Patient Data Lab Results Last 24 hrs: Laboratory Results - last 24 hr 12/23/19 12/23/19 12/23/19 Range/Units 09:45 09:45 09:45 WBC 14.34 H (4.0-11.0) K/uL RBC 3.73 L (4.50-5.90) M/uL Hgb 13.3 (13.0-17.0) g/dL Hct 40.1 (38.0-50.0) % MCV 107.5 H (80.0-98.0) fL MCH 35.7 H (27.0-32.0) pg MCHC 33.2 (31.0-37.0) g/dL RDW Std Deviation 49.8 (28.0-62.0) fl RDW Coeff of Anibal 13 (11.0-15.0) % Plt Count 165 (150-400) K/uL MPV 11.20 (7.40-12.00) fL Neut % (Auto) 76.6 (48.0-80.0) % Lymph % (Auto) 13.7 L (16.0-40.0) % [place] % (Auto) 8.6 (0.0-15.0) % Eos % (Auto) 1.0 (0.0-7.0) % Baso % (Auto) 0.1 (0.0-1.5) % Neut # (Auto) 11.0 H (1.4-5.7) K/uL Lymph # (Auto) 2.0 (0.6-2.4) K/uL [place] # (Auto) 1.2 H (0.0-0.8) K/uL Eos # (Auto) 0.1 (0.0-0.7) K/uL Baso # (Auto) 0.0 (0.0-0.1) K/uL Nucleated RBC % 0.0 /100WBC Nucleated RBCs # 0 K/uL INR 0.98 Sodium 140 (136-148) mmol/L Potassium 3.4 L (3.5-5.1) mmol/L Chloride 105 (98-107) mmol/L Carbon Dioxide 24.0 (21.0-32.0) mmol/L BUN 12 (7.0-18.0) mg/dL Creatinine 1.1 (0.8-1.3) mg/dL Est Cr Clr Drug Dosing 54.45 mL/min Estimated GFR (MDRD) > 60.0 ml/min Glucose 94 (74-106) mg/dL Calcium 8.3 L (8.5-10.1) mg/dL Phosphorus 2.9 (2.6-4.7) mg/dL Magnesium 2.3 (1.8-2.4) mg/dL Total Bilirubin 0.6 (0.2-1.0) mg/dL AST 16 (15-37) IU/L ALT 21 (14-63) IU/L Alkaline Phosphatase 56 (46-116) U/L Troponin I < 0.050 (0.000-0.056) ng/mL B-Natriuretic Peptide (<100) PG/ML Total Protein 6.1 L (6.4-8.2) g/dL Albumin 2.8 L (3.4-5.0) g/dL Globulin 3.3 (2.6-4.0) g/dL Albumin/Globulin Ratio 0.9 (0.9-1.6) SARS-CoV-2 RNA (REBEKA) (NEGATIVE) 12/23/19 12/23/19 Range/Units 09:45 10:30 WBC (4.0-11.0) K/uL RBC (4.50-5.90) M/uL Hgb (13.0-17.0) g/dL Hct (38.0-50.0) % MCV (80.0-98.0) fL MCH (27.0-32.0) pg MCHC (31.0-37.0) g/dL RDW Std Deviation (28.0-62.0) fl RDW Coeff of Anibal (11.0-15.0) % Plt Count (150-400) K/uL MPV (7.40-12.00) fL Neut % (Auto) (48.0-80.0) % Lymph % (Auto) (16.0-40.0) % [place] % (Auto) (0.0-15.0) % Eos % (Auto) (0.0-7.0) % Baso % (Auto) (0.0-1.5) % Neut # (Auto) (1.4-5.7) K/uL Lymph # (Auto) (0.6-2.4) K/uL [place] # (Auto) (0.0-0.8) K/uL Eos # (Auto) (0.0-0.7) K/uL Baso # (Auto) (0.0-0.1) K/uL Nucleated RBC % /100WBC Nucleated RBCs # K/uL INR Sodium (136-148) mmol/L Potassium (3.5-5.1) mmol/L Chloride (98-107) mmol/L Carbon Dioxide (21.0-32.0) mmol/L BUN (7.0-18.0) mg/dL Creatinine (0.8-1.3) mg/dL Est Cr Clr Drug Dosing mL/min Estimated GFR (MDRD) ml/min Glucose (74-106) mg/dL Calcium (8.5-10.1) mg/dL Phosphorus (2.6-4.7) mg/dL Magnesium (1.8-2.4) mg/dL Total Bilirubin (0.2-1.0) mg/dL AST (15-37) IU/L ALT (14-63) IU/L Alkaline Phosphatase (46-116) U/L Troponin I (0.000-0.056) ng/mL B-Natriuretic Peptide 19 (<100) PG/ML Total Protein (6.4-8.2) g/dL Albumin (3.4-5.0) g/dL Globulin (2.6-4.0) g/dL Albumin/Globulin Ratio (0.9-1.6) SARS-CoV-2 RNA (REBEKA) NEGATIVE (NEGATIVE) Result Diagrams: 12/23/19 09:45 12/23/19 09:45 Sepsis Event Note - Evaluation Sepsis Screening Result: No Definite Risk - Focused Exam Vital Signs: Vital Signs Temp Pulse Resp BP Pulse Ox 12/23/19 12:05 36.5 C 85 18 134/77 96 12/23/19 09:54 36.5 C 93 15 109/68 93 L - Problem List (1) GI bleed SNOMED Code(s): 09232667 ICD Code: K92.2 - GASTROINTESTINAL HEMORRHAGE, UNSPECIFIED Status: Acute Current Visit: Yes (2) Syncope SNOMED Code(s): 256806937 ICD Code: R55 - SYNCOPE AND COLLAPSE Status: Acute Current Visit: Yes (3) Alcohol abuse SNOMED Code(s): 62876620 ICD Code: F10.10 - ALCOHOL ABUSE, UNCOMPLICATED Status: Acute Current Vis it: Yes (4) HLD (hyperlipidemia) SNOMED Code(s): 26979455 ICD Code: E78.5 - HYPERLIPIDEMIA, UNSPECIFIED Status: Acute Current Visit: Yes (5) HTN (hypertension) SNOMED Code(s): 79107821 ICD Code: I10 - ESSENTIAL (PRIMARY) HYPERTENSION Status: Acute Current Visit: Yes (6) COPD (chronic obstructive pulmonary disease) SNOMED Code(s): 53495168 ICD Code: J44.9 - CHRONIC OBSTRUCTIVE PULMONARY DISEASE, UNSPECIFIED Status: Acute Priority: Medium Current Visit: No Qualifiers: COPD type: emphysema Emphysema type: unspecified Qualified Code(s): J43.9 - Emphysema, unspecified (7) Tobacco abuse SNOMED Code(s): 601432722 ICD Code: Z72.0 - TOBACCO USE Status: Acute Priority: High Current Visit: No Problem List Initiated/Reviewed/Updated: Yes Orders Last 24hrs: Active Orders 24 hr Category Date Time Status Patient Status [ADT] Routine ADT 12/23/19 11:07 Active Antiembolic Devices [RC] PER UNIT ROUTINE Care 12/23/19 13:08 Active CIWAA Assessment [RC] Q4H Care 12/23/19 14:05 Active Cardiac Monitoring [RC] . DIRECTED Care 12/23/19 09:49 Active Notify Provider Consults [RC] ASDIRECTED Care 12/23/19 13:28 Active Oxygen Therapy [RC] PRN Care 12/23/19 13:04 Active Up With Assistance [RC] ASDIRECTED Care 12/23/19 13:04 Active VTE/DVT Education [RC] PER UNIT ROUTINE Care 12/23/19 13:04 Active Vital Signs [RC] Q4H Care 12/23/19 13:04 Active Consult to Physician [CONS] Urgent Cons 12/23/19 13:28 Active Nothing per Oral Now Diet [DIET] Diet 12/23/19 Lunch Active CBC WITH AUTO DIFF [HEME] AM Lab 12/24/19 05:11 Ordered COMPREHENSIVE METABOLIC PN,CMP [CHEM] AM Lab 12/24/19 05:11 Ordered HEMOGLOBIN [HEME] Routine Lab 12/23/19 16:00 Ordered UA W/TRACY RFLX IF INDICATED [URIN] Stat Lab 12/23/19 09:49 Ordered Diltiazem [Cardizem CD] Med 12/23/19 13:15 Active 120 mg PO DAILY Fluticasone Propionate [Flonase] Med 12/23/19 13:12 Active 0 gm NASBOTH DAILY PRN Folic Acid Med 12/23/19 14:15 Active 1 mg IV DAILY LORazepam [Ativan] Med 12/23/19 14:05 Active See Protocol IVPUSH Q4H PRN Lactated Ringers [Ringers, Lactated] 1,000 ml Med 12/23/19 13:15 Active IV ASDIRECTED Ondansetron [Zofran] Med 12/23/19 13:04 Active 4 mg IVPUSH Q4H PRN Pantoprazole [ProTONIX IV] 40 mg Med 12/23/19 13:15 Active Sodium Chloride 0.9% [Normal Saline] 10 ml IV Q12H Sodium Chloride 0.9% [Saline Flush] Med 12/23/19 09:49 Active 10 ml FLUSH ASDIRECTED PRN Sodium Chloride 0.9% [Saline Flush] Med 12/23/19 09:49 Active 2.5 ml FLUSH ASDIRECTED PRN Thiamine [Vitamin B-1] 100 mg Med 12/23/19 14:15 Active Sodium Chloride 0.9% [Normal Saline] 100 ml IV DAILY lisinopriL [Prinivil] Med 12/23/19 13:15 Active 20 mg PO DAILY Saline Lock Insert [OM.PC] Stat Oth 12/23/19 09:49 Ordered Sequential Compression Device [OM.PC] Per Unit Routine Oth 12/23/19 13:07 Ordered Code Status [Resuscitation Status] Routine Resus Stat 12/23/19 13:33 Ordered Medication Orders Diltiazem HCl (Cardizem Cd) 120 mg PO DAILY LITTLE Fluticasone Propionate (Flonase) 0 gm NASBOTH DAILY PRN PRN Reason: NASAL CONGESTION Folic Acid (Folic Acid) 1 mg IV DAILY LITTLE Lactated Ringer's (Ringers, Lactated) 1,000 mls @ 75 mls/hr IV ASDIRECTED LITTLE Pantoprazole Sodium 40 mg/ (Sodium Chloride) 10 mls @ 300 mls/hr IV Q12H LITTLE Thiamine HCl 100 mg/ Sodium (Chloride) 101 mls @ 202 mls/hr IV DAILY LITTLE Lisinopril (Prinivil) 20 mg PO DAILY LITTLE Lorazepam (Ativan) 0 mg IVPUSH Q4H PRN; Protocol PRN Reason: CIWAA Ondansetron HCl (Zofran) 4 mg IVPUSH Q4H PRN PRN Reason: Nausea Sodium Chloride (Saline Flush) 10 ml FLUSH ASDIRECTED PRN PRN Reason: Keep Vein Open Last Admin: 12/23/19 10:11 Dose: 10 ml Documented by: MARIA L Sodium Chloride (Saline Flush) 2.5 ml FLUSH ASDIRECTED PRN PRN Reason: Keep Vein Open Last Admin: 12/23/19 10:11 Dose: 2.5 ml Documented by: MARIA L Assessment/Plan Comment:: Assessment and Plan: 1. Acute GI Bleed: - Admit to med/surgery. Patient is NPO and received 1 L IV LR bolus in ER. Will start IV LR maintenance fluids @ 75 cc/hr. Will order IV PPI BID. Will recheck Hemoglobin level this afternoon. Hold aspirin and plavix. Will consult general surgery for further evaluation. 2. Syncope likely secondary to #1: - Patient is on telemetry. EKG was unremarkable. Will continue to monitor. 3. Alcohol abuse: - Will start IV thiamine, IV folic acid daily and Ativan prn CIWAA protocol. 4. DVT prophylaxis: SCD's. 5. Past medical history of CAD s/p stents, HLD, HTN, COPD and chronic back pain: - Will continue home medications with the exception of aspirin and plavix secondary to #1.
[2019-12-23] MEDS ORDERED: Potassium Chloride Riders 40 MEQ in Premix Bag 1 BAG IV ONE (14:27)
[2019-12-23] MEDS: Pantoprazole 40 MG in Sodium Chloride 0.9% 10 ML IV SCH (14:28)
[2019-12-23] MEDS: Lisinopril 10 MG Tab PO SCH (14:29)
[2019-12-23] MEDS: Diltiazem 120 MG Cap.CD PO SCH (14:29)
[2019-12-23] MEDS: Folic Acid 50 MG/10 ML MDV IV SCH (14:30)
[2019-12-23] MEDS: Lactated Ringers 1,000 ML IV SCH (14:33)
[2019-12-23] MEDS: Thiamine 100 MG in Sodium Chloride 0.9% 100 ML IV SCH (15:13)
[2019-12-23] MEDS ORDERED: Azithromycin 250 MG Tab PO SCH (15:30)
[2019-12-23] MEDS: Lidocaine 5% 700 MG Patch TOP SCH (16:03)
--- NOTE | 2019-12-23 20:59 | PCM.CONS ---
H&P History of Present Illness - General Date of Service: 12/23/19 Admit Problem/Dx: Admission Diagnosis/Problem Admission Diagnosis/Problem Syncope Source of Information: Patient History Limitations: Reports: No Limitations - History of Present Illness Initial Comments - Free Text/Narative: Patient is a 79 year old male who presents with hematochezia. His PMHx is significant for HTN, COPD, HLD, chronic back pain and hx of CAD with stents for which he is on Plavix and ASA. Patient had a colonoscopy many years ago but has not had one in the past 10 years. He has had normal bowel movements up until today. He went to have his daily BM, when he suddenly felt uncomfortable and had a large bloody bowel movement. This was associated with a syncopal episode. When he woke up, he was on the floor and there was blood in the toilet and on the floor. He was brought to the ER. His vitals were stable on arrival to the ER. He hit his chest when he fell, so a CXR was performed. There were no acute findings. His hgb was 13.3. His plts were 165K. His WBC was slightly elevated at 14K. He was admitted to the medicine team for observation. He has not had any further BMs. This evening however he complains of lower abdominal discomfort. It is tender with deep palpation. Other than that his only other complaint is that he has been having chronic sinus drainage which has been causing him to cough. The patient does drink daily. low back Pain Score (Numeric/FACES): 2 - Related Data Allergies/Adverse Reactions: Allergies Allergy/AdvReac Type Severity Reaction Status Date / Time levofloxacin [From Levaquin] Allergy Body Aches Verified 12/23/19 12:38 Home Medications: Home Meds Aspirin 81 mg PO Q2D 09/04/17 [History] Clopidogrel [Plavix] 75 mg PO DAILY 09/04/17 [History] Diltiazem [Cardizem CD] 120 mg PO DAILY 09/04/17 [History] Simvastatin [Zocor] 10 mg PO BEDTIME 09/04/17 [History] Amoxicillin/Potassium Clav [Augmentin 875-125 Tablet] 1 each PO BID 7 Days #14 tablet 10/02/18 [Rx] Amoxicillin/Potassium Clav [Amox-Clav 875-125 mg Tablet] 1 tab PO BID 12/23/19 [History] Colchicine 0.6 mg PO DAILY 12/23/19 [History] Fluticasone Propionate 2 sprays NASBOTH DAILY PRN 12/23/19 [History] lisinopriL [Prinivil] 20 mg PO DAILY 12/23/19 [History] Past Medical History HEENT History: Reports: Impaired Vision Cardiovascular History: Reports: CAD, High Cholesterol, Hypertension, Stents Other Cardiovascular History: High blood pressure/Heart Problems Respiratory History: Reports: COPD Gastrointestinal History: Reports: None Genitourinary History: Reports: None Musculoskeletal History: Reports: Back Pain, Chronic Other Musculoskeletal History: 3 back surgeries. epidural shots- last injection on 09/23 Neurological History: Reports: None Psychiatric History: Reports: Depression Endocrine/Metabolic History: Reports: None Hematologic History: Reports: None Immunologic History: Reports: None Oncologic (Cancer) History: Reports: None Dermatologic History: Reports: None - Infectious Disease History Infectious Disease History: Reports: Chicken Pox - Past Surgical History Other Cardiovascular Surgeries/Procedures: cardiac stents 2010 Social & Family History - Family History Family Medical History: Noncontributory - Tobacco Use Tobacco Use Status *Q: Current Every Day Tobacco User Years of Tobacco use: 60 Packs/Tins Daily: 0.2 Used Tobacco, but Quit: No Second Hand Smoke Exposure: Yes - Caffeine Use Caffeine Use: Reports: Coffee - Alcohol Use Days Per Week of Alcohol Use: 7 Number of Drinks Per Day: 7 Total Drinks Per Week: 49 - Recreational Drug Use Recreational Drug Use: No H&P Review of Systems - Review of Systems: Review Of Systems: Comprehensive ROS is negative, except as noted in HPI. Exam - Exam Exam: See Below - Vital Signs Vital Signs: Last Vital Signs Temp 36.5 C 12/23/19 12:05 Pulse 85 12/23/19 14:29 Resp 18 12/23/19 12:05 BP 134/77 12/23/19 14:29 Pulse Ox 96 12/23/19 12:05 Orthostatic Blood Pressure [ 125/66 laying] Orthostatic Blood Pressure [ 129/72 Sitting] Orthostatic Blood Pressure [ 118/74 Standing] Weight: 73.255 kg - Exam General: Alert, Oriented HEENT: Conjunctiva Clear, Mucosa Moist & [place] Lungs: Normal Respiratory Effort, Other (diminished breath sounds to bilateral bases. No wheezing with inspiration or expiration. Pursed lip breathing with deep expiration. Some coarse transmitted upper airway sounds. ) Cardiovascular: Regular Rate, Regular Rhythm GI/Abdominal Exam: Soft, No Distention, No Mass, Tender (RLQ) Rectal (Males) Exam: Other (Diffusely enlarged prostate. No evidence of prolapsed internal hemorrhoids. TAMIA revealed no palpable lesions, but there was a small amount of bright red blood mixed with stool on glove afterwards. FOBT sent. ) Back Exam: Normal Inspection - Patient Data Lab Results Last 24 hrs: Laboratory Results - last 24 hr 12/23/19 12/23/19 12/23/19 Range/Units 09:45 09:45 09:45 WBC 14.34 H (4.0-11.0) K/uL RBC 3.73 L (4.50-5.90) M/uL Hgb 13.3 (13.0-17.0) g/dL Hct 40.1 (38.0-50.0) % MCV 107.5 H (80.0-98.0) fL MCH 35.7 H (27.0-32.0) pg MCHC 33.2 (31.0-37.0) g/dL RDW Std Deviation 49.8 (28.0-62.0) fl RDW Coeff of Anibal 13 (11.0-15.0) % Plt Count 165 (150-400) K/uL MPV 11.20 (7.40-12.00) fL Neut % (Auto) 76.6 (48.0-80.0) % Lymph % (Auto) 13.7 L (16.0-40.0) % [place] % (Auto) 8.6 (0.0-15.0) % Eos % (Auto) 1.0 (0.0-7.0) % Baso % (Auto) 0.1 (0.0-1.5) % Neut # (Auto) 11.0 H (1.4-5.7) K/uL Lymph # (Auto) 2.0 (0.6-2.4) K/uL [place] # (Auto) 1.2 H (0.0-0.8) K/uL Eos # (Auto) 0.1 (0.0-0.7) K/uL Baso # (Auto) 0.0 (0.0-0.1) K/uL Nucleated RBC % 0.0 /100WBC Nucleated RBCs # 0 K/uL INR 0.98 Sodium 140 (136-148) mmol/L Potassium 3.4 L (3.5-5.1) mmol/L Chloride 105 (98-107) mmol/L Carbon Dioxide 24.0 (21.0-32.0) mmol/L BUN 12 (7.0-18.0) mg/dL Creatinine 1.1 (0.8-1.3) mg/dL Est Cr Clr Drug Dosing 54.45 mL/min Estimated GFR (MDRD) > 60.0 ml/min Glucose 94 (74-106) mg/dL Calcium 8.3 L (8.5-10.1) mg/dL Phosphorus 2.9 (2.6-4.7) mg/dL Magnesium 2.3 (1.8-2.4) mg/dL Total Bilirubin 0.6 (0.2-1.0) mg/dL AST 16 (15-37) IU/L ALT 21 (14-63) IU/L Alkaline Phosphatase 56 (46-116) U/L Troponin I < 0.050 (0.000-0.056) ng/mL B-Natriuretic Peptide (<100) PG/ML Total Protein 6.1 L (6.4-8.2) g/dL Albumin 2.8 L (3.4-5.0) g/dL Globulin 3.3 (2.6-4.0) g/dL Albumin/Globulin Ratio 0.9 (0.9-1.6) SARS-CoV-2 RNA (REBEKA) (NEGATIVE) 12/23/19 12/23/19 12/23/19 Range/Units 09:45 10:30 16:15 WBC (4.0-11.0) K/uL RBC (4.50-5.90) M/uL Hgb 12.9 L (13.0-17.0) g/dL Hct (38.0-50.0) % MCV (80.0-98.0) fL MCH (27.0-32.0) pg MCHC (31.0-37.0) g/dL RDW Std Deviation (28.0-62.0) fl RDW Coeff of Anibal (11.0-15.0) % Plt Count (150-400) K/uL MPV (7.40-12.00) fL Neut % (Auto) (48.0-80.0) % Lymph % (Auto) (16.0-40.0) % [place] % (Auto) (0.0-15.0) % Eos % (Auto) (0.0-7.0) % Baso % (Auto) (0.0-1.5) % Neut # (Auto) (1.4-5.7) K/uL Lymph # (Auto) (0.6-2.4) K/uL [place] # (Auto) (0.0-0.8) K/uL Eos # (Auto) (0.0-0.7) K/uL Baso # (Auto) (0.0-0.1) K/uL Nucleated RBC % /100WBC Nucleated RBCs # K/uL INR Sodium (136-148) mmol/L Potassium (3.5-5.1) mmol/L Chloride (98-107) mmol/L Carbon Dioxide (21.0-32.0) mmol/L BUN (7.0-18.0) mg/dL Creatinine (0.8-1.3) mg/dL Est Cr Clr Drug Dosing mL/min Estimated GFR (MDRD) ml/min Glucose (74-106) mg/dL Calcium (8.5-10.1) mg/dL Phosphorus (2.6-4.7) mg/dL Magnesium (1.8-2.4) mg/dL Total Bilirubin (0.2-1.0) mg/dL AST (15-37) IU/L ALT (14-63) IU/L Alkaline Phosphatase (46-116) U/L Troponin I (0.000-0.056) ng/mL B-Natriuretic Peptide 19 (<100) PG/ML Total Protein (6.4-8.2) g/dL Albumin (3.4-5.0) g/dL Globulin (2.6-4.0) g/dL Albumin/Globulin Ratio (0.9-1.6) SARS-CoV-2 RNA (REBEKA) NEGATIVE (NEGATIVE) Result Diagrams: 12/23/19 16:15 12/23/19 09:45 Sepsis Event Note - Evaluation Sepsis Screening Result: No Definite Risk - Focused Exam Vital Signs: Vital Signs Temp Pulse Pulse Resp BP BP Pulse Ox 12/23/19 14:29 85 134/77 12/23/19 12:05 36.5 C 85 18 134/77 96 12/23/19 09:54 36.5 C 93 15 109/68 93 L Consult PN Assessment/Plan Procedures: Procedures AIRWAY INHALATION TREATMENT (10/01/18) ALANINE AMINO (ALT) (SGPT) (10/17/15) ASSAY BLD/SERUM CHOLESTEROL (11/04/19) ASSAY OF BLOOD/URIC ACID (12/30/18) ASSAY OF LACTIC ACID (10/01/18) ASSAY OF MAGNESIUM (10/01/18) ASSAY OF NATRIURETIC PEPTIDE (10/01/18) ASSAY OF PHOSPHORUS (11/22/17) ASSAY OF TROPONIN QUANT (10/01/18) ASSAY OF VANCOMYCIN (11/22/17) BLOOD CULTURE FOR BACTERIA (10/01/18) BLOOD GASES ANY COMBINATION (10/01/18) BONE IMAGING WHOLE BODY (10/27/14) COMPLETE CBC AUTOMATED (11/04/19) COMPLETE CBC W/AUTO DIFF WBC (12/30/18) COMPREHEN METABOLIC PANEL (11/04/19) CT ANGIOGRAPHY CHEST (10/01/18) CT HEAD/BRAIN W/O DYE (09/04/17) CT LUMBAR SPINE W/O DYE (10/13/14) ELECTROCARDIOGRAM TRACING (10/01/18) EMERGENCY DEPT VISIT (10/01/18) EVALUATION OF WHEEZING (10/05/14) HYDRATE IV INFUSION ADD-ON (11/22/17) LIPID PANEL (10/17/15) METABOLIC PANEL TOTAL CA (12/30/18) MRI LUMBAR SPINE W/O DYE (06/27/18) OFFICE/OUTPATIENT VISIT EST (12/30/18) OFFICE/OUTPATIENT VISIT EST (10/17/15) OFFICE/OUTPATIENT VISIT EST (11/23/14) OFFICE/OUTPATIENT VISIT EST (08/12/14) OFFICE/OUTPATIENT VISIT EST (06/09/14) OFFICE/OUTPATIENT VISIT EST (09/24/13) POS AIRWAY PRESSURE CPAP (10/01/18) PPSV23 VACC 2 YRS+ SUBQ/IM (06/06/16) PROTHROMBIN TIME (10/01/18) PT EVAL LOW COMPLEX 20 MIN (01/17/18) REMOVE IMPACTED EAR WAX UNI (10/17/15) ROUTINE VENIPUNCTURE (11/04/19) THER/PROPH/DIAG INJ IV PUSH (09/04/17) THER/PROPH/DIAG INJ SC/IM (11/22/17) THER/PROPH/DIAG IV INF ADDON (11/22/17) THER/PROPH/DIAG IV INF INIT (10/01/18) THERAPEUTIC EXERCISES (01/17/18) TX/PRO/DX INJ NEW DRUG ADDON (10/01/18) TX/PROPH/DG ADDL SEQ IV INF (10/01/18) URINALYSIS AUTO W/SCOPE (11/22/17) WITHDRAWAL OF ARTERIAL BLOOD (10/01/18) X-RAY EXAM CHEST 1 VIEW (10/01/18) X-RAY EXAM L-S SPINE 2/3 VWS (10/21/17) X-RAY EXAM OF ELBOW (09/04/17) X-RAY EXAM UNILAT RIBS/CHEST (09/04/17) (1) GI bleed SNOMED Code(s): 71460415 Code(s): K92.2 - GASTROINTESTINAL HEMORRHAGE, UNSPECIFIED Current Visit: Yes Qualifiers: GI bleed type/associated pathology: anorectal hemorrhage Qualified Code(s): K62.5 - Hemorrhage of anus and rectum Problem List Initiated/Reviewed/Updated: Yes Plan: Given the patients lower abdominal discomfort, I will order a CT abdomen/pelvis tonight. He likely has a lower GI bleed given the history of bright red blood seen during my exam. Patient should stay NPO for now. Will re-examine in the morning. May require colonoscopy while admitted. Will determine when to do this in the am.
[2019-12-23] MEDS ORDERED: Iopamidol 755 Mg/ML 100 ML Bottle IVPUSH ONE (21:44)
--- NOTE | 2019-12-23 22:24 | CT ---
INDICATION: Lower abdomen pain, hematochezia TECHNIQUE: CT Abdomen and pelvis with i.v. contrast. Coronal and sagittal reformats were obtained. CONTRAST: 80 mL Isovue 370 COMPARISON: None FINDINGS: Lower chest: Unremarkable. Severe atherosclerotic calcifications are noted in the coronary arteries. Liver: Unremarkable. Spleen: Unremarkable. Pancreas: Unremarkable. Gallbladder: Unremarkable. Kidney: There is a parapelvic cyst measuring 3.8 cm and the left kidney. Multiple cortical cysts are present bilaterally measuring up to 2 cm. Adrenal: Unremarkable. Bowel: Diffuse colonic diverticulosis is present. There are surrounding inflammatory changes with a thickened diverticulum noted in the hepatic flexure of the colon on image 66. The appendix is normal in appearance and size. Vascular: Severe diffuse atherosclerotic calcifications of the abdominal aorta and its tributaries are present. Lymph: Unremarkable. Peritoneum: Unremarkable. No pneumoperitoneum is seen. No significant ascites is noted. Pelvis: Moderate enlargement of the prostate gland is noted. Soft tissue: Unremarkable. Bone: Dextroscoliosis of the lumbar spine is present. Severe compression deformities containing methylmethacrylate are present near the thoracolumbar junction. Metallic interspinous spaces are present at L3-4 and L4-5. IMPRESSIONS: 1. There are surrounding inflammatory changes with a thickened diverticulum noted in the hepatic flexure of the colon on image 66. Findings may be due to acute right-sided diverticulitis. 2. Moderate enlargement of the prostate gland is noted. Correlation with physical examination and PSA levels are recommended. Dictated by Kade Tenorio MD @ 12/23/2019 10:23:13 PM Please note that all CT scans at this facility use dose modulation, iterative reconstruction, and/or weight-based dosing when appropriate to reduce radiation dose to as low as reasonably achievable. Dictated by: Kade Tenorio MD @ 12/23/2019 22:23:21 (Electronically Signed)
[2019-12-23] MEDS: metroNIDAZOLE/Normal Saline 500 MG in Premix Bag 1 BAG IV SCH (23:42)
[2019-12-24] MEDS: Ciprofloxacin in D5W 400 MG in Premix Bag 1 BAG IV SCH ×6 (00:58→23:47)
[2019-12-24] MEDS: Pantoprazole 40 MG in Sodium Chloride 0.9% 10 ML IV SCH ×2 (02:21→13:04)
[2019-12-24] MEDS: metroNIDAZOLE/Normal Saline 500 MG in Premix Bag 1 BAG IV SCH ×3 (06:13→22:38)
[2019-12-24 06:58] LABS: BLOOD UREA NITROGEN,BUN 16 mg/dL (7.0-18.0); CARBON DIOXIDE,CO2 23.4 mmol/L (21.0-32.0); CHLORIDE,CL 105 mmol/L (98-107); GLUCOSE RANDOM 89 mg/dL (74-106); POTASSIUM,K 3.9 mmol/L (3.5-5.1); SODIUM,NA 140 mmol/L (136-148)
[2019-12-24] MEDS: Lactated Ringers 1,000 ML IV SCH (08:28)
[2019-12-24] MEDS: Diltiazem 120 MG Cap.CD PO SCH (09:45)
[2019-12-24] MEDS: Lisinopril 10 MG Tab PO SCH (09:46)
--- NOTE | 2019-12-24 09:47 | PCM.CONSN ---
- General Info Date of Service: 12/24/19 Functional Status: Reports: Pain Controlled, Urinating. Denies: New Symptoms - Review of Systems General: Reports: No Symptoms HEENT: Reports: No Symptoms Pulmonary: Reports: No Symptoms Cardiovascular: Reports: No Symptoms Gastrointestinal: Denies: Diarrhea, Hematochezia Genitourinary: Reports: No Symptoms - Patient Data Vitals - Most Recent: Last Vital Signs Temp 37.1 C 12/24/19 07:20 Pulse 86 12/24/19 07:20 Resp 16 12/24/19 07:20 BP 167/84 H 12/24/19 07:20 Pulse Ox 91 L 12/24/19 07:20 Orthostatic Blood Pressure [ 125/66 laying] Orthostatic Blood Pressure [ 129/72 Sitting] Orthostatic Blood Pressure [ 118/74 Standing] Weight - Most Recent: 73.255 kg I&O - Last 24 Hours: Intake & Output 12/23/19 12/24/19 12/24/19 22:59 06:59 14:59 Intake Total 0 1072 100 Output Total 800 Balance 0 272 100 Lab Results Last 24 Hours: Laboratory Results - last 24 hr 12/23/19 12/23/19 12/23/19 Range/Units 09:45 09:45 09:45 WBC 14.34 H (4.0-11.0) K/uL RBC 3.73 L (4.50-5.90) M/uL Hgb 13.3 (13.0-17.0) g/dL Hct 40.1 (38.0-50.0) % MCV 107.5 H (80.0-98.0) fL MCH 35.7 H (27.0-32.0) pg MCHC 33.2 (31.0-37.0) g/dL RDW Std Deviation 49.8 (28.0-62.0) fl RDW Coeff of Anibal 13 (11.0-15.0) % Plt Count 165 (150-400) K/uL MPV 11.20 (7.40-12.00) fL Neut % (Auto) 76.6 (48.0-80.0) % Lymph % (Auto) 13.7 L (16.0-40.0) % Leake % (Auto) 8.6 (0.0-15.0) % Eos % (Auto) 1.0 (0.0-7.0) % Baso % (Auto) 0.1 (0.0-1.5) % Neut # (Auto) 11.0 H (1.4-5.7) K/uL Lymph # (Auto) 2.0 (0.6-2.4) K/uL Leake # (Auto) 1.2 H (0.0-0.8) K/uL Eos # (Auto) 0.1 (0.0-0.7) K/uL Baso # (Auto) 0.0 (0.0-0.1) K/uL Nucleated RBC % 0.0 /100WBC Nucleated RBCs # 0 K/uL INR 0.98 Sodium 140 (136-148) mmol/L Potassium 3.4 L (3.5-5.1) mmol/L Chloride 105 (98-107) mmol/L Carbon Dioxide 24.0 (21.0-32.0) mmol/L BUN 12 (7.0-18.0) mg/dL Creatinine 1.1 (0.8-1.3) mg/dL Est Cr Clr Drug Dosing 54.45 mL/min Estimated GFR (MDRD) > 60.0 ml/min Glucose 94 (74-106) mg/dL Calcium 8.3 L (8.5-10.1) mg/dL Phosphorus 2.9 (2.6-4.7) mg/dL Magnesium 2.3 (1.8-2.4) mg/dL Total Bilirubin 0.6 (0.2-1.0) mg/dL AST 16 (15-37) IU/L ALT 21 (14-63) IU/L Alkaline Phosphatase 56 (46-116) U/L Troponin I < 0.050 (0.000-0.056) ng/mL B-Natriuretic Peptide (<100) PG/ML Total Protein 6.1 L (6.4-8.2) g/dL Albumin 2.8 L (3.4-5.0) g/dL Globulin 3.3 (2.6-4.0) g/dL Albumin/Globulin Ratio 0.9 (0.9-1.6) Urine Color Urine Appearance Urine pH (5.0-8.0) Ur Specific Stanley (1.001-1.035) Urine Protein (NEGATIVE) mg/dL Urine Glucose (UA) (NEGATIVE) mg/dL Urine Ketones (NEGATIVE) mg/dL Urine Occult Blood (NEGATIVE) Urine Nitrite (NEGATIVE) Urine Bilirubin (NEGATIVE) Urine Urobilinogen (<2.0) EU/dL Ur Leukocyte Esterase (NEGATIVE) SARS-CoV-2 RNA (REBEKA) (NEGATIVE) 12/23/19 12/23/19 12/23/19 Range/Units 09:45 10:30 16:15 WBC (4.0-11.0) K/uL RBC (4.50-5.90) M/uL Hgb 12.9 L (13.0-17.0) g/dL Hct (38.0-50.0) % MCV (80.0-98.0) fL MCH (27.0-32.0) pg MCHC (31.0-37.0) g/dL RDW Std Deviation (28.0-62.0) fl RDW Coeff of Anibal (11.0-15.0) % Plt Count (150-400) K/uL MPV (7.40-12.00) fL Neut % (Auto) (48.0-80.0) % Lymph % (Auto) (16.0-40.0) % Leake % (Auto) (0.0-15.0) % Eos % (Auto) (0.0-7.0) % Baso % (Auto) (0.0-1.5) % Neut # (Auto) (1.4-5.7) K/uL Lymph # (Auto) (0.6-2.4) K/uL Leake # (Auto) (0.0-0.8) K/uL Eos # (Auto) (0.0-0.7) K/uL Baso # (Auto) (0.0-0.1) K/uL Nucleated RBC % /100WBC Nucleated RBCs # K/uL INR Sodium (136-148) mmol/L Potassium (3.5-5.1) mmol/L Chloride (98-107) mmol/L Carbon Dioxide (21.0-32.0) mmol/L BUN (7.0-18.0) mg/dL Creatinine (0.8-1.3) mg/dL Est Cr Clr Drug Dosing mL/min Estimated GFR (MDRD) ml/min Glucose (74-106) mg/dL Calcium (8.5-10.1) mg/dL Phosphorus (2.6-4.7) mg/dL Magnesium (1.8-2.4) mg/dL Total Bilirubin (0.2-1.0) mg/dL AST (15-37) IU/L ALT (14-63) IU/L Alkaline Phosphatase (46-116) U/L Troponin I (0.000-0.056) ng/mL B-Natriuretic Peptide 19 (<100) PG/ML Total Protein (6.4-8.2) g/dL Albumin (3.4-5.0) g/dL Globulin (2.6-4.0) g/dL Albumin/Globulin Ratio (0.9-1.6) Urine Color Urine Appearance Urine pH (5.0-8.0) Ur Specific Stanley (1.001-1.035) Urine Protein (NEGATIVE) mg/dL Urine Glucose (UA) (NEGATIVE) mg/dL Urine Ketones (NEGATIVE) mg/dL Urine Occult Blood (NEGATIVE) Urine Nitrite (NEGATIVE) Urine Bilirubin (NEGATIVE) Urine Urobilinogen (<2.0) EU/dL Ur Leukocyte Esterase (NEGATIVE) SARS-CoV-2 RNA (REBEKA) NEGATIVE (NEGATIVE) 12/24/19 12/24/19 12/24/19 Range/Units 04:50 05:28 05:28 WBC 9.32 (4.0-11.0) K/uL RBC 3.25 L (4.50-5.90) M/uL Hgb 11.4 L (13.0-17.0) g/dL Hct 35.3 L (38.0-50.0) % MCV 108.6 H (80.0-98.0) fL MCH 35.1 H (27.0-32.0) pg MCHC 32.3 (31.0-37.0) g/dL RDW Std Deviation 50.4 (28.0-62.0) fl RDW Coeff of Anibal 13 (11.0-15.0) % Plt Count 165 (150-400) K/uL MPV 12.00 (7.40-12.00) fL Neut % (Auto) 66.7 (48.0-80.0) % Lymph % (Auto) 23.4 (16.0-40.0) % Leake % (Auto) 8.8 (0.0-15.0) % Eos % (Auto) 1.0 (0.0-7.0) % Baso % (Auto) 0.1 (0.0-1.5) % Neut # (Auto) 6.2 H (1.4-5.7) K/uL Lymph # (Auto) 2.2 (0.6-2.4) K/uL Leake # (Auto) 0.8 (0.0-0.8) K/uL Eos # (Auto) 0.1 (0.0-0.7) K/uL Baso # (Auto) 0.0 (0.0-0.1) K/uL Nucleated RBC % 0.0 /100WBC Nucleated RBCs # 0 K/uL INR Sodium 140 (136-148) mmol/L Potassium 3.9 (3.5-5.1) mmol/L Chloride 105 (98-107) mmol/L Carbon Dioxide 23.4 (21.0-32.0) mmol/L BUN 16 (7.0-18.0) mg/dL Creatinine 1.0 (0.8-1.3) mg/dL Est Cr Clr Drug Dosing 57.95 mL/min Estimated GFR (MDRD) > 60.0 ml/min Glucose 89 (74-106) mg/dL Calcium 7.9 L (8.5-10.1) mg/dL Phosphorus (2.6-4.7) mg/dL Magnesium (1.8-2.4) mg/dL Total Bilirubin 1.1 H (0.2-1.0) mg/dL AST 20 (15-37) IU/L ALT 15 (14-63) IU/L Alkaline Phosphatase 49 (46-116) U/L Troponin I (0.000-0.056) ng/mL B-Natriuretic Peptide (<100) PG/ML Total Protein 5.7 L (6.4-8.2) g/dL Albumin 2.7 L (3.4-5.0) g/dL Globulin 3.0 (2.6-4.0) g/dL Albumin/Globulin Ratio 0.9 (0.9-1.6) Urine Color YELLOW Urine Appearance CLEAR Urine pH 7.0 (5.0-8.0) Ur Specific Stanley 1.015 (1.001-1.035) Urine Protein NEGATIVE (NEGATIVE) mg/dL Urine Glucose (UA) NEGATIVE (NEGATIVE) mg/dL Urine Ketones 15 H (NEGATIVE) mg/dL Urine Occult Blood NEGATIVE (NEGATIVE) Urine Nitrite NEGATIVE (NEGATIVE) Urine Bilirubin NEGATIVE (NEGATIVE) Urine Urobilinogen 0.2 (<2.0) EU/dL Ur Leukocyte Esterase NEGATIVE (NEGATIVE) SARS-CoV-2 RNA (REBEKA) (NEGATIVE) Gerald Results Last 24 Hours: Microbiology 12/23/19 20:39 Stool Occult Blood (GERALD) - Final Stool / Feces Med Orders - Current: Current Medications Azithromycin (Zithromax) 500 mg PO Q24H [facility] Last Admin: 12/23/19 16:05 Dose: 500 mg Documented by: Diltiazem HCl (Cardizem Cd) 120 mg PO DAILY [facility] Last Admin: 12/23/19 14:29 Dose: 120 mg Documented by: Fluticasone Propionate (Flonase) 0 gm NASBOTH DAILY PRN PRN Reason: NASAL CONGESTION Last Admin: 12/23/19 14:30 Dose: 2 spray Documented by: Folic Acid (Folic Acid) 1 mg IV DAILY [facility] Last Admin: 12/23/19 14:30 Dose: 1 mg Documented by: Lactated Ringer's (Ringers, Lactated) 1,000 mls @ 75 mls/hr IV ASDIRECTED [facility] Last Admin: 12/24/19 08:28 Dose: 75 mls/hr Documented by: Pantoprazole Sodium 40 mg/ (Sodium Chloride) 10 mls @ 300 mls/hr IV Q12H [facility] Last Admin: 12/24/19 02:21 Dose: 300 mls/hr Documented by: Thiamine HCl 100 mg/ Sodium (Chloride) 101 mls @ 202 mls/hr IV DAILY [facility] Last Admin: 12/23/19 15:13 Dose: 202 mls/hr Documented by: Metronidazole 500 mg/ Premix 100 mls @ 100 mls/hr IV TID [facility] Last Admin: 12/24/19 06:13 Dose: 100 mls/hr Documented by: Ciprofloxacin/Dextrose 400 mg/ (Premix) 200 mls @ 200 mls/hr IV Q12H [facility] Last Admin: 12/24/19 00:58 Dose: 200 mls/hr Documented by: Lidocaine (Lidoderm 5%) 700 mg TOP Q24H [facility] Last Admin: 12/23/19 16:03 Dose: 700 mg Documented by: Lisinopril (Prinivil) 20 mg PO DAILY [facility] Last Admin: 12/23/19 14:29 Dose: 20 mg Documented by: Lorazepam (Ativan) 0 mg IVPUSH Q4H PRN; Protocol PRN Reason: CIWAA Ondansetron HCl (Zofran) 4 mg IVPUSH Q4H PRN PRN Reason: Nausea Sodium Chloride (Saline Flush) 10 ml FLUSH ASDIRECTED PRN PRN Reason: Keep Vein Open Last Admin: 12/23/19 10:11 Dose: 10 ml Documented by: Sodium Chloride (Saline Flush) 2.5 ml FLUSH ASDIRECTED PRN PRN Reason: Keep Vein Open Last Admin: 12/23/19 10:11 Dose: 2.5 ml Documented by: Discontinued Medications Lactated Ringer's (Ringers, Lactated) 1,000 mls @ 999 mls/hr IV .BOLUS ONE Stop: 12/23/19 10:49 Last Admin: 12/23/19 10:06 Dose: 999 mls/hr Documented by: Pantoprazole Sodium 40 mg/ (Sodium Chloride) 20 mls @ 420 mls/hr IVPUSH ONETIME ONE Stop: 12/23/19 09:53 Last Admin: 12/23/19 10:06 Dose: 420 mls/hr Documented by: Potassium Chloride 40 meq/ (Premix) 100 mls @ 25 mls/hr IV ONETIME ONE Stop: 12/23/19 18:26 Last Admin: 12/23/19 16:06 Dose: 25 mls/hr Documented by: Iopamidol (Isovue-370 (76%)) 80 ml IVPUSH ONETIME ONE Stop: 12/23/19 21:45 Last Admin: 12/23/19 21:44 Dose: 80 ml Documented by: - Exam Quality Assessment: Supplemental Oxygen General: Alert, Oriented HEENT: Pupils Equal, Pupils Reactive Lungs: Normal Respiratory Effort Cardiovascular: Regular Rate GI/Abdominal Exam: Soft, Non-Tender, No Distention, No Mass Sepsis Event Note - Evaluation Sepsis Screening Result: No Definite Risk - Focused Exam Vital Signs: Vital Signs Temp Pulse Resp BP Pulse Ox 12/24/19 07:20 37.1 C 86 16 167/84 H 91 L 12/24/19 04:11 37.2 C 74 18 145/75 H 89 L 12/24/19 00:22 37.3 C 79 18 161/81 H 92 L Consult PN Assessment/Plan Procedures: Procedures AIRWAY INHALATION TREATMENT (10/01/18) ALANINE AMINO (ALT) (SGPT) (10/17/15) ASSAY BLD/SERUM CHOLESTEROL (11/04/19) ASSAY OF BLOOD/URIC ACID (12/30/18) ASSAY OF LACTIC ACID (10/01/18) ASSAY OF MAGNESIUM (10/01/18) ASSAY OF NATRIURETIC PEPTIDE (10/01/18) ASSAY OF PHOSPHORUS (11/22/17) ASSAY OF TROPONIN QUANT (10/01/18) ASSAY OF VANCOMYCIN (11/22/17) BLOOD CULTURE FOR BACTERIA (10/01/18) BLOOD GASES ANY COMBINATION (10/01/18) BONE IMAGING WHOLE BODY (10/27/14) COMPLETE CBC AUTOMATED (11/04/19) COMPLETE CBC W/AUTO DIFF WBC (12/30/18) COMPREHEN METABOLIC PANEL (11/04/19) CT ANGIOGRAPHY CHEST (10/01/18) CT HEAD/BRAIN W/O DYE (09/04/17) CT LUMBAR SPINE W/O DYE (10/13/14) ELECTROCARDIOGRAM TRACING (10/01/18) EMERGENCY DEPT VISIT (10/01/18) EVALUATION OF WHEEZING (10/05/14) HYDRATE IV INFUSION ADD-ON (11/22/17) LIPID PANEL (10/17/15) METABOLIC PANEL TOTAL CA (12/30/18) MRI LUMBAR SPINE W/O DYE (06/27/18) OFFICE/OUTPATIENT VISIT EST (12/30/18) OFFICE/OUTPATIENT VISIT EST (10/17/15) OFFICE/OUTPATIENT VISIT EST (11/23/14) OFFICE/OUTPATIENT VISIT EST (08/12/14) OFFICE/OUTPATIENT VISIT EST (06/09/14) OFFICE/OUTPATIENT VISIT EST (09/24/13) POS AIRWAY PRESSURE CPAP (10/01/18) PPSV23 VACC 2 YRS+ SUBQ/IM (06/06/16) PROTHROMBIN TIME (10/01/18) PT EVAL LOW COMPLEX 20 MIN (01/17/18) REMOVE IMPACTED EAR WAX UNI (10/17/15) ROUTINE VENIPUNCTURE (11/04/19) THER/PROPH/DIAG INJ IV PUSH (09/04/17) THER/PROPH/DIAG INJ SC/IM (11/22/17) THER/PROPH/DIAG IV INF ADDON (11/22/17) THER/PROPH/DIAG IV INF INIT (10/01/18) THERAPEUTIC EXERCISES (01/17/18) TX/PRO/DX INJ NEW DRUG ADDON (10/01/18) TX/PROPH/DG ADDL SEQ IV INF (10/01/18) URINALYSIS AUTO W/SCOPE (11/22/17) WITHDRAWAL OF ARTERIAL BLOOD (10/01/18) X-RAY EXAM CHEST 1 VIEW (10/01/18) X-RAY EXAM L-S SPINE 2/3 VWS (10/21/17) X-RAY EXAM OF ELBOW (09/04/17) X-RAY EXAM UNILAT RIBS/CHEST (09/04/17) (1) GI bleed SNOMED Code(s): 23878308 Code(s): K92.2 - GASTROINTESTINAL HEMORRHAGE, UNSPECIFIED Current Visit: Yes Qualifiers: GI bleed type/associated pathology: anorectal hemorrhage Qualified Code(s): K62.5 - Hemorrhage of anus and rectum (2) Diverticulitis SNOMED Code(s): 002698246 Code(s): K57.92 - DVTRCLI OF INTEST, PART UNSP, W/O PERF OR ABSCESS W/O BLEED Current Visit: Yes Problem List Initiated/Reviewed/Updated: Yes My Orders Last 24 Hours: My Active Orders 12/23/19 23:00 metroNIDAZOLE/Normal Saline [Flagyl 500 MG in NS 100 ML] 500 mg Premix Bag 1 bag IV TID 12/24/19 00:00 Ciprofloxacin in D5W [Cipro in D5W 400 MG/200 ML] 400 mg Premix Bag 1 bag IV Q12H 12/24/19 Lunch Clear Liquid Diet [DIET] Plan: the patient's CT scan shows that he has extensive diverticulosis throughout the colon. There is an area along the hepatic flexure but appears thickened consistent with acute diverticulitis. Continue IV antibiotics for today. White blood cell count this morning is improved. Hemoglobin has decreased slightly but this is likely due to the hemorrhage from yesterday and his resuscitation. Okayed to have a clear liquid diet today. If stable tomorrow morning Advanced diet to regular and switch over to oral antibiotics. continue these for 2 weeks in total.I will see he patient in clinic in 2 weeks for follow-up.we will sign off at this time. Please call the on-call surgeon with any questions or concerns.
[2019-12-24] MEDS: Folic Acid 50 MG/10 ML MDV IV SCH (10:56)
[2019-12-24] MEDS: Thiamine 100 MG in Sodium Chloride 0.9% 100 ML IV SCH (10:59)
--- NOTE | 2019-12-24 12:06 | PCM.PN ---
- General Info Date of Service: 12/24/19 Subjective Update: No fevers or chills overnight. Has not had a bowel movement overnight. - Patient Data Vitals - Most Recent: Last Vital Signs Temp 37.3 C 12/24/19 11:47 Pulse 84 12/24/19 11:47 Resp 16 12/24/19 11:47 BP 139/79 12/24/19 11:47 Pulse Ox 91 L 12/24/19 11:47 Orthostatic Blood Pressure [ 125/66 laying] Orthostatic Blood Pressure [ 129/72 Sitting] Orthostatic Blood Pressure [ 118/74 Standing] Weight - Most Recent: 73.255 kg I&O - Last 24 Hours: Intake & Output 12/23/19 12/24/19 12/24/19 22:59 06:59 14:59 Intake Total 0 1072 100 Output Total 800 Balance 0 272 100 Lab Results Last 24 Hours: Laboratory Results - last 24 hr 12/23/19 12/24/19 12/24/19 Range/Units 16:15 04:50 05:28 WBC 9.32 (4.0-11.0) K/uL RBC 3.25 L (4.50-5.90) M/uL Hgb 12.9 L 11.4 L (13.0-17.0) g/dL Hct 35.3 L (38.0-50.0) % MCV 108.6 H (80.0-98.0) fL MCH 35.1 H (27.0-32.0) pg MCHC 32.3 (31.0-37.0) g/dL RDW Std Deviation 50.4 (28.0-62.0) fl RDW Coeff of Anibal 13 (11.0-15.0) % Plt Count 165 (150-400) K/uL MPV 12.00 (7.40-12.00) fL Neut % (Auto) 66.7 (48.0-80.0) % Lymph % (Auto) 23.4 (16.0-40.0) % Dickens % (Auto) 8.8 (0.0-15.0) % Eos % (Auto) 1.0 (0.0-7.0) % Baso % (Auto) 0.1 (0.0-1.5) % Neut # (Auto) 6.2 H (1.4-5.7) K/uL Lymph # (Auto) 2.2 (0.6-2.4) K/uL Dickens # (Auto) 0.8 (0.0-0.8) K/uL Eos # (Auto) 0.1 (0.0-0.7) K/uL Baso # (Auto) 0.0 (0.0-0.1) K/uL Nucleated RBC % 0.0 /100WBC Nucleated RBCs # 0 K/uL Sodium (136-148) mmol/L Potassium (3.5-5.1) mmol/L Chloride (98-107) mmol/L Carbon Dioxide (21.0-32.0) mmol/L BUN (7.0-18.0) mg/dL Creatinine (0.8-1.3) mg/dL Est Cr Clr Drug Dosing mL/min Estimated GFR (MDRD) ml/min Glucose (74-106) mg/dL Calcium (8.5-10.1) mg/dL Total Bilirubin (0.2-1.0) mg/dL AST (15-37) IU/L ALT (14-63) IU/L Alkaline Phosphatase (46-116) U/L Total Protein (6.4-8.2) g/dL Albumin (3.4-5.0) g/dL Globulin (2.6-4.0) g/dL Albumin/Globulin Ratio (0.9-1.6) Urine Color YELLOW Urine Appearance CLEAR Urine pH 7.0 (5.0-8.0) Ur Specific [place] 1.015 (1.001-1.035) Urine Protein NEGATIVE (NEGATIVE) mg/dL Urine Glucose (UA) NEGATIVE (NEGATIVE) mg/dL Urine Ketones 15 H (NEGATIVE) mg/dL Urine Occult Blood NEGATIVE (NEGATIVE) Urine Nitrite NEGATIVE (NEGATIVE) Urine Bilirubin NEGATIVE (NEGATIVE) Urine Urobilinogen 0.2 (<2.0) EU/dL Ur Leukocyte Esterase NEGATIVE (NEGATIVE) 12/24/19 Range/Units 05:28 WBC (4.0-11.0) K/uL RBC (4.50-5.90) M/uL Hgb (13.0-17.0) g/dL Hct (38.0-50.0) % MCV (80.0-98.0) fL MCH (27.0-32.0) pg MCHC (31.0-37.0) g/dL RDW Std Deviation (28.0-62.0) fl RDW Coeff of Anibal (11.0-15.0) % Plt Count (150-400) K/uL MPV (7.40-12.00) fL Neut % (Auto) (48.0-80.0) % Lymph % (Auto) (16.0-40.0) % Dickens % (Auto) (0.0-15.0) % Eos % (Auto) (0.0-7.0) % Baso % (Auto) (0.0-1.5) % Neut # (Auto) (1.4-5.7) K/uL Lymph # (Auto) (0.6-2.4) K/uL Dickens # (Auto) (0.0-0.8) K/uL Eos # (Auto) (0.0-0.7) K/uL Baso # (Auto) (0.0-0.1) K/uL Nucleated RBC % /100WBC Nucleated RBCs # K/uL Sodium 140 (136-148) mmol/L Potassium 3.9 (3.5-5.1) mmol/L Chloride 105 (98-107) mmol/L Carbon Dioxide 23.4 (21.0-32.0) mmol/L BUN 16 (7.0-18.0) mg/dL Creatinine 1.0 (0.8-1.3) mg/dL Est Cr Clr Drug Dosing 57.95 mL/min Estimated GFR (MDRD) > 60.0 ml/min Glucose 89 (74-106) mg/dL Calcium 7.9 L (8.5-10.1) mg/dL Total Bilirubin 1.1 H (0.2-1.0) mg/dL AST 20 (15-37) IU/L ALT 15 (14-63) IU/L Alkaline Phosphatase 49 (46-116) U/L Total Protein 5.7 L (6.4-8.2) g/dL Albumin 2.7 L (3.4-5.0) g/dL Globulin 3.0 (2.6-4.0) g/dL Albumin/Globulin Ratio 0.9 (0.9-1.6) Urine Color Urine Appearance Urine pH (5.0-8.0) Ur Specific [place] (1.001-1.035) Urine Protein (NEGATIVE) mg/dL Urine Glucose (UA) (NEGATIVE) mg/dL Urine Ketones (NEGATIVE) mg/dL Urine Occult Blood (NEGATIVE) Urine Nitrite (NEGATIVE) Urine Bilirubin (NEGATIVE) Urine Urobilinogen (<2.0) EU/dL Ur Leukocyte Esterase (NEGATIVE) Gerald Results Last 24 Hours: Microbiology 12/23/19 20:39 Stool Occult Blood (GERALD) - Final Stool / Feces Med Orders - Current: Current Medications Diltiazem HCl (Cardizem Cd) 120 mg PO DAILY [facility] Last Admin: 12/24/19 09:45 Dose: 120 mg Documented by: Fluticasone Propionate (Flonase) 0 gm NASBOTH DAILY PRN PRN Reason: NASAL CONGESTION Last Admin: 12/23/19 14:30 Dose: 2 spray Documented by: Folic Acid (Folic Acid) 1 mg IV DAILY [facility] Last Admin: 12/24/19 10:56 Dose: 1 mg Documented by: Pantoprazole Sodium 40 mg/ (Sodium Chloride) 10 mls @ 300 mls/hr IV Q12H [facility] Last Admin: 12/24/19 02:21 Dose: 300 mls/hr Documented by: Thiamine HCl 100 mg/ Sodium (Chloride) 101 mls @ 202 mls/hr IV DAILY [facility] Last Admin: 12/24/19 10:59 Dose: 202 mls/hr Documented by: Metronidazole 500 mg/ Premix 100 mls @ 100 mls/hr IV TID [facility] Last Admin: 12/24/19 06:13 Dose: 100 mls/hr Documented by: Ciprofloxacin/Dextrose 400 mg/ (Premix) 200 mls @ 200 mls/hr IV Q12H [facility] Last Admin: 12/24/19 00:58 Dose: 200 mls/hr Documented by: Lidocaine (Lidoderm 5%) 700 mg TOP Q24H [facility] Last Admin: 12/23/19 16:03 Dose: 700 mg Documented by: Lisinopril (Prinivil) 20 mg PO DAILY [facility] Last Admin: 12/24/19 09:46 Dose: 20 mg Documented by: Lorazepam (Ativan) 0 mg IVPUSH Q4H PRN; Protocol PRN Reason: CIWAA Ondansetron HCl (Zofran) 4 mg IVPUSH Q4H PRN PRN Reason: Nausea Sodium Chloride (Saline Flush) 10 ml FLUSH ASDIRECTED PRN PRN Reason: Keep Vein Open Last Admin: 12/23/19 10:11 Dose: 10 ml Documented by: Sodium Chloride (Saline Flush) 2.5 ml FLUSH ASDIRECTED PRN PRN Reason: Keep Vein Open Last Admin: 12/23/19 10:11 Dose: 2.5 ml Documented by: Discontinued Medications Azithromycin (Zithromax) 500 mg PO Q24H [facility] Last Admin: 12/23/19 16:05 Dose: 500 mg Documented by: Lactated Ringer's (Ringers, Lactated) 1,000 mls @ 999 mls/hr IV .BOLUS ONE Stop: 12/23/19 10:49 Last Admin: 12/23/19 10:06 Dose: 999 mls/hr Documented by: Pantoprazole Sodium 40 mg/ (Sodium Chloride) 20 mls @ 420 mls/hr IVPUSH ONETIME ONE Stop: 12/23/19 09:53 Last Admin: 12/23/19 10:06 Dose: 420 mls/hr Documented by: Lactated Ringer's (Ringers, Lactated) 1,000 mls @ 75 mls/hr IV ASDIRECTED [facility] Last Admin: 12/24/19 08:28 Dose: 75 mls/hr Documented by: Potassium Chloride 40 meq/ (Premix) 100 mls @ 25 mls/hr IV ONETIME ONE Stop: 12/23/19 18:26 Last Admin: 12/23/19 16:06 Dose: 25 mls/hr Documented by: Iopamidol (Isovue-370 (76%)) 80 ml IVPUSH ONETIME ONE Stop: 12/23/19 21:45 Last Admin: 12/23/19 21:44 Dose: 80 ml Documented by: - Exam General: Alert, Oriented, Cooperative, No Acute Distress Lungs: Clear to Auscultation, Normal Respiratory Effort Cardiovascular: Regular Rate, Regular Rhythm GI/Abdominal Exam: Normal Bowel Sounds, Soft, No Distention, Other (mild right- sided abdominal ttp) Extremities: Normal Inspection, No Pedal Edema Sepsis Event Note - Evaluation Sepsis Screening Result: No Definite Risk - Focused Exam Vital Signs: Vital Signs Temp Pulse Pulse Resp BP BP Pulse Ox 12/24/19 11:47 37.3 C 84 16 139/79 91 L 12/24/19 09:46 167/84 H 12/24/19 09:45 86 167/84 H 12/24/19 07:20 37.1 C 86 16 167/84 H 91 L 12/24/19 04:11 37.2 C 74 18 145/75 H 89 L 12/24/19 00:22 37.3 C 79 18 161/81 H 92 L - Problem List & Annotations (1) GI bleed SNOMED Code(s): 54553529 Code(s): K92.2 - GASTROINTESTINAL HEMORRHAGE, UNSPECIFIED Status: Acute Current Visit: Yes Qualifiers: GI bleed type/associated pathology: anorectal hemorrhage Qualified Code(s): K62.5 - Hemorrhage of anus and rectum (2) Syncope SNOMED Code(s): 142735559 Code(s): R55 - SYNCOPE AND COLLAPSE Status: Acute Current Visit: Yes (3) Alcohol abuse SNOMED Code(s): 56651591 Code(s): F10.10 - ALCOHOL ABUSE, UNCOMPLICATED Status: Acute Current Visit: Yes (4) HLD (hyperlipidemia) SNOMED Code(s): 08933545 Code(s): E78.5 - HYPERLIPIDEMIA, UNSPECIFIED Status: Acute Current Visit: Yes (5) HTN (hypertension) SNOMED Code(s): 22551423 Code(s): I10 - ESSENTIAL (PRIMARY) HYPERTENSION Status: Acute Current Visit: Yes (6) COPD (chronic obstructive pulmonary disease) SNOMED Code(s): 09319872 Code(s): J44.9 - CHRONIC OBSTRUCTIVE PULMONARY DISEASE, UNSPECIFIED Status: Acute Priority: Medium Current Visit: No Qualifiers: COPD type: emphysema Emphysema type: unspecified Qualified Code(s): J43.9 - Emphysema, unspecified (7) Tobacco abuse SNOMED Code(s): 079946420 Code(s): Z72.0 - TOBACCO USE Status: Acute Priority: High Current Visit: No - Problem List Review Problem List Initiated/Reviewed/Updated: Yes - My Orders Last 24 Hours: My Active Orders 12/23/19 11:30 Telemetry Monitoring [Cardiac Monitoring] [RC] Q8H 12/23/19 13:04 Oxygen Therapy [RC] PRN Up With Assistance [RC] ASDIRECTED VTE/DVT Education [RC] PER UNIT ROUTINE Vital Signs [RC] Q4H Ondansetron [Zofran] 4 mg IVPUSH Q4H PRN 12/23/19 13:07 Sequential Compression Device [OM.PC] Per Unit Routine 12/23/19 13:08 Antiembolic Devices [RC] PER UNIT ROUTINE 12/23/19 13:12 Fluticasone Propionate [Flonase] 0 gm NASBOTH DAILY PRN 12/23/19 13:15 Diltiazem [Cardizem CD] 120 mg PO DAILY Pantoprazole [ProTONIX IV] 40 mg Sodium Chloride 0.9% [Normal Saline] 10 ml IV Q12H lisinopriL [Prinivil] 20 mg PO DAILY 12/23/19 13:28 Notify Provider Consults [RC] ASDIRECTED Consult to Physician [CONS] Urgent 12/23/19 13:33 Code Status [Resuscitation Status] Routine 12/23/19 14:05 CIWAA Assessment [RC] Q4H LORazepam [Ativan] See Protocol IVPUSH Q4H PRN 12/23/19 14:15 Folic Acid 1 mg IV DAILY Thiamine [Vitamin B-1] 100 mg Sodium Chloride 0.9% [Normal Saline] 100 ml IV DAILY 12/23/19 15:17 RT Incentive Spirometry [RC] ASDIRECTED 12/23/19 15:30 Lidocaine 5% [Lidoderm 5%] 700 mg TOP Q24H 12/23/19 15:43 Orthostatic Vital Signs [RC] ASDIRECTED 12/24/19 15:00 HEMOGLOBIN [HEME] Routine 12/25/19 05:11 CBC WITH AUTO DIFF [HEME] AM CMP [COMPREHENSIVE METABOLIC PN,CMP] [CHEM] AM - Plan Plan:: Assessment and Plan: 1. GI bleed secondary to acute gastroenteritis: - Patient evaluated by general surgery. CT abd/pelvis showed acute diverticulitis. Per general surgery, started treatment with IV cipro and flagyl. Will advance to clear liquid diet today and discontinue IV fluids. Continue IV PPI BID. Patient to follow-up with general surgery as an outpatient. Will recheck Hemoglobin level this afternoon. Aspirin and plavix held. 2. Syncope likely secondary to #1: - Patient is on telemetry. EKG was unremarkable. Will continue to monitor. 3. Alcohol abuse: - Continue IV thiamine, IV folic acid daily and Ativan prn CIWAA protocol. 4. DVT prophylaxis: SCD's. 5. Past medical history of CAD s/p stents, HLD, HTN, COPD and chronic back pain: - Will continue home medications with the exception of aspirin and plavix secondary to #1.
[2019-12-24] MEDS: Lidocaine 5% 700 MG Patch TOP SCH (15:54)
[2019-12-25] MEDS: Pantoprazole 40 MG in Sodium Chloride 0.9% 10 ML IV SCH ×3 (01:37→12:27)
[2019-12-25] MEDS: metroNIDAZOLE/Normal Saline 500 MG in Premix Bag 1 BAG IV SCH (06:54)
[2019-12-25 06:58] LABS: BLOOD UREA NITROGEN,BUN 6 mg/dL (7.0-18.0); CARBON DIOXIDE,CO2 24.1 mmol/L (21.0-32.0); CHLORIDE,CL 106 mmol/L (98-107); GLUCOSE RANDOM 105 mg/dL (74-106); POTASSIUM,K 3.6 mmol/L (3.5-5.1); SODIUM,NA 138 mmol/L (136-148)
[2019-12-25] MEDS: Lisinopril 10 MG Tab PO SCH (08:56)
[2019-12-25] MEDS: Folic Acid 50 MG/10 ML MDV IV SCH (08:57)
[2019-12-25] MEDS: Diltiazem 120 MG Cap.CD PO SCH (08:57)
[2019-12-25] MEDS: Thiamine 100 MG in Sodium Chloride 0.9% 100 ML IV SCH (09:58)
--- NOTE | 2019-12-25 12:11 | PCM.DCSUM1 ---
<Natalio St - Last Filed: 12/25/19 13:28> Discharge Summary - Hospital Course Free Text/Narrative:: 79-year-old male admitted for syncopal episode and acute GI bleed. He has a PMH of CAD s/p stents, HLD, HTN, COPD and alcohol abuse. On admission, patient's CBC and CMP were unremarkable. EKG was unremarkable. Hemoccult stool test was positive. His aspirin and plavix were held on admission. General surgery was consulted. CT abd/pelvis revealed acute gastroenteritis and patient subsequently started on ciprofloxacin and flagyl. His hemoglobin level remained stable throughout his hospitalization. He did have another bloody stool while hospitalized but he reports noticing less blood in it and mixed with more stool than previously. Patient had no events reported on telemetry. He was started on a soft diet and advised to advance slowly as tolerated. On discharge, his aspirin was held and plavix was resumed. He was given scripts for ciprofloxacin and flagyl for 9 more day. Patient to follow-up with PCP, general surgery and cardiology on discharge. - Discharge Data Discharge Date: 12/25/19 Discharge Disposition: Home, Self-Care 01 Condition: Stable - Referral to Home Health Primary Care Physician: PCP None - Discharge Diagnosis/Problem(s) (1) GI bleed SNOMED Code(s): 02336284 ICD Code: K92.2 - GASTROINTESTINAL HEMORRHAGE, UNSPECIFIED Status: Acute Qualifiers: GI bleed type/associated pathology: anorectal hemorrhage Qualified Code(s): K62.5 - Hemorrhage of anus and rectum (2) Syncope SNOMED Code(s): 825236323 ICD Code: R55 - SYNCOPE AND COLLAPSE Status: Acute (3) Alcohol abuse SNOMED Code(s): 07791835 ICD Code: F10.10 - ALCOHOL ABUSE, UNCOMPLICATED Status: Acute (4) HLD (hyperlipidemia) SNOMED Code(s): 07212464 ICD Code: E78.5 - HYPERLIPIDEMIA, UNSPECIFIED Status: Acute (5) HTN (hypertension) SNOMED Code(s): 75099457 ICD Code: I10 - ESSENTIAL (PRIMARY) HYPERTENSION Status: Acute (6) COPD (chronic obstructive pulmonary disease) SNOMED Code(s): 33408321 ICD Code: J44.9 - CHRONIC OBSTRUCTIVE PULMONARY DISEASE, UNSPECIFIED Status: Acute Priority: Medium Qualifiers: COPD type: emphysema Emphysema type: unspecified Qualified Code(s): J43.9 - Emphysema, unspecified (7) Tobacco abuse SNOMED Code(s): 466730108 ICD Code: Z72.0 - TOBACCO USE Status: Acute Priority: High (8) Diverticulitis SNOMED Code(s): 168036427 ICD Code: K57.92 - DVTRCLI OF INTEST, PART UNSP, W/O PERF OR ABSCESS W/O BLEED Status: Acute - Patient Summary/Data Consults: Consultations 12/23/19 13:28 Consult to Physician [CONS] Urgent - Patient Instructions Diet, Other: Soft diet, advance as tolerated. Activity: As Tolerated Notify Provider of: Fever, Increased Pain, Swelling and Redness, Drainage, Nausea and/or Vomiting Other/Special Instructions: Worsening bloody stool - Discharge Plan *PRESCRIPTION DRUG MONITORING PROGRAM REVIEWED*: Not Applicable *COPY OF PRESCRIPTION DRUG MONITORING REPORT IN PATIENT SHAHID: Not Applicable Prescriptions/Med Rec: Ciprofloxacin [Ciprofloxacin HCl] 500 mg PO BID 9 Days #18 tab metroNIDAZOLE [Metronidazole] 500 mg PO Q8H 9 Days #27 tablet Home Medications: Home Meds Clopidogrel [Plavix] 75 mg PO DAILY 09/04/17 [History] Diltiazem [Cardizem CD] 120 mg PO DAILY 09/04/17 [History] Simvastatin [Zocor] 10 mg PO BEDTIME 09/04/17 [History] Colchicine 0.6 mg PO DAILY 12/23/19 [History] Fluticasone Propionate 2 sprays NASBOTH DAILY PRN 12/23/19 [History] lisinopriL [Prinivil] 20 mg PO DAILY 12/23/19 [History] Ciprofloxacin [Ciprofloxacin HCl] 500 mg PO BID 9 Days #18 tab 12/25/19 [Rx] metroNIDAZOLE [Metronidazole] 500 mg PO Q8H 9 Days #27 tablet 12/25/19 [Rx] Oxygen Therapy Mode: Room Air Patient Handouts: Gastrointestinal Bleeding, [id number], Ciprofloxacin tablets, Metronidazole tablets or capsules Referrals: Fransisco Ugalde MD [Physician] - 12/31/19 4:00 pm Korey Canseco MD [Physician] - 01/04/20 1:45 pm Evy Hi MD [Physician] - 01/13/20 8:00 am - Discharge Summary/Plan Comment DC Time >30 min.: No - Patient Data Vitals - Most Recent: Last Vital Signs Temp 37.1 C 12/25/19 08:00 Pulse 85 12/25/19 08:57 Resp 19 12/25/19 08:00 BP 136/80 12/25/19 08:57 Pulse Ox 94 L 12/25/19 08:00 Orthostatic Blood Pressure [ 125/66 laying] Orthostatic Blood Pressure [ 129/72 Sitting] Orthostatic Blood Pressure [ 118/74 Standing] Weight - Most Recent: 73.255 kg I&O - Last 24 hours: Intake & Output 12/24/19 12/25/19 12/25/19 22:59 06:59 14:59 Intake Total 600 1300 100 Output Total 685 1200 Balance -85 100 100 Lab Results - Last 24 hrs: Laboratory Results - last 24 hr 12/24/19 12/25/19 12/25/19 Range/Units 15:20 06:10 06:10 WBC 7.61 (4.0-11.0) K/uL RBC 3.06 L (4.50-5.90) M/uL Hgb 10.7 L 10.9 L (13.0-17.0) g/dL Hct 33.0 L (38.0-50.0) % MCV 107.8 H (80.0-98.0) fL MCH 35.6 H (27.0-32.0) pg MCHC 33.0 (31.0-37.0) g/dL RDW Std Deviation 50.1 (28.0-62.0) fl RDW Coeff of Anibal 13 (11.0-15.0) % Plt Count 141 L (150-400) K/uL MPV 11.10 (7.40-12.00) fL Neut % (Auto) 63.4 (48.0-80.0) % Lymph % (Auto) 26.4 (16.0-40.0) % [place] % (Auto) 8.3 (0.0-15.0) % Eos % (Auto) 1.8 (0.0-7.0) % Baso % (Auto) 0.1 (0.0-1.5) % Neut # (Auto) 4.8 (1.4-5.7) K/uL Lymph # (Auto) 2.0 (0.6-2.4) K/uL [place] # (Auto) 0.6 (0.0-0.8) K/uL Eos # (Auto) 0.1 (0.0-0.7) K/uL Baso # (Auto) 0.0 (0.0-0.1) K/uL Nucleated RBC % 0.0 /100WBC Nucleated RBCs # 0 K/uL Sodium 138 (136-148) mmol/L Potassium 3.6 (3.5-5.1) mmol/L Chloride 106 (98-107) mmol/L Carbon Dioxide 24.1 (21.0-32.0) mmol/L BUN 6 L (7.0-18.0) mg/dL Creatinine 0.9 (0.8-1.3) mg/dL Est Cr Clr Drug Dosing 64.39 mL/min Estimated GFR (MDRD) > 60.0 ml/min Glucose 105 (74-106) mg/dL Calcium 7.8 L (8.5-10.1) mg/dL Total Bilirubin 0.6 (0.2-1.0) mg/dL AST 17 (15-37) IU/L ALT 13 L (14-63) IU/L Alkaline Phosphatase 44 L (46-116) U/L Total Protein 5.6 L (6.4-8.2) g/dL Albumin 2.6 L (3.4-5.0) g/dL Globulin 3.0 (2.6-4.0) g/dL Albumin/Globulin Ratio 0.9 (0.9-1.6) Med Orders - Current: Current Medications Diltiazem HCl (Cardizem Cd) 120 mg PO DAILY [facility] Last Admin: 12/25/19 08:57 Dose: 120 mg Documented by: Fluticasone Propionate (Flonase) 0 gm NASBOTH DAILY PRN PRN Reason: NASAL CONGESTION Last Admin: 12/23/19 14:30 Dose: 2 spray Documented by: Folic Acid (Folic Acid) 1 mg IV DAILY [facility] Last Admin: 12/25/19 08:57 Dose: 1 mg Documented by: Pantoprazole Sodium 40 mg/ (Sodium Chloride) 10 mls @ 300 mls/hr IV Q12H [facility] Last Admin: 12/25/19 01:37 Dose: 300 mls/hr Documented by: Thiamine HCl 100 mg/ Sodium (Chloride) 101 mls @ 202 mls/hr IV DAILY [facility] Last Admin: 12/25/19 09:58 Dose: 202 mls/hr Documented by: Metronidazole 500 mg/ Premix 100 mls @ 100 mls/hr IV TID [facility] Last Admin: 12/25/19 06:54 Dose: 100 mls/hr Documented by: Ciprofloxacin/Dextrose 400 mg/ (Premix) 200 mls @ 200 mls/hr IV Q12H [facility] Last Admin: 12/24/19 23:47 Dose: 200 mls/hr Documented by: Lidocaine (Lidoderm 5%) 700 mg TOP Q24H [facility] Last Admin: 12/24/19 15:54 Dose: 700 mg Documented by: Lisinopril (Prinivil) 20 mg PO DAILY [facility] Last Admin: 12/25/19 08:56 Dose: 20 mg Documented by: Lorazepam (Ativan) 0 mg IVPUSH Q4H PRN; Protocol PRN Reason: CIWAA Ondansetron HCl (Zofran) 4 mg IVPUSH Q4H PRN PRN Reason: Nausea Sodium Chloride (Saline Flush) 10 ml FLUSH ASDIRECTED PRN PRN Reason: Keep Vein Open Last Admin: 12/23/19 10:11 Dose: 10 ml Documented by: Sodium Chloride (Saline Flush) 2.5 ml FLUSH ASDIRECTED PRN PRN Reason: Keep Vein Open Last Admin: 12/23/19 10:11 Dose: 2.5 ml Documented by: Discontinued Medications Azithromycin (Zithromax) 500 mg PO Q24H [facility] Last Admin: 12/23/19 16:05 Dose: 500 mg Documented by: Lactated Ringer's (Ringers, Lactated) 1,000 mls @ 999 mls/hr IV .BOLUS ONE Stop: 12/23/19 10:49 Last Admin: 12/23/19 10:06 Dose: 999 mls/hr Documented by: Pantoprazole Sodium 40 mg/ (Sodium Chloride) 20 mls @ 420 mls/hr IVPUSH ONETIME ONE Stop: 12/23/19 09:53 Last Admin: 12/23/19 10:06 Dose: 420 mls/hr Documented by: Lactated Ringer's (Ringers, Lactated) 1,000 mls @ 75 mls/hr IV ASDIRECTED [facility] Last Admin: 12/24/19 08:28 Dose: 75 mls/hr Documented by: Potassium Chloride 40 meq/ (Premix) 100 mls @ 25 mls/hr IV ONETIME ONE Stop: 12/23/19 18:26 Last Admin: 12/23/19 16:06 Dose: 25 mls/hr Documented by: Iopamidol (Isovue-370 (76%)) 80 ml IVPUSH ONETIME ONE Stop: 12/23/19 21:45 Last Admin: 12/23/19 21:44 Dose: 80 ml Documented by: <Negrito Gresham - Last Filed: 12/27/19 22:37> Discharge Summary - Referral to Home Health Primary Care Physician: PCP None - Patient Summary/Data Consults: Consultations 12/23/19 13:28 Consult to Physician [CONS] Urgent - Patient Data Vitals - Most Recent: Last Vital Signs Temp 37.1 C 12/25/19 12:00 Pulse 86 12/25/19 12:00 Resp 18 12/25/19 12:00 BP 153/87 H 12/25/19 12:00 Pulse Ox 95 12/25/19 12:00 Orthostatic Blood Pressure [ 125/66 laying] Orthostatic Blood Pressure [ 129/72 Sitting] Orthostatic Blood Pressure [ 118/74 Standing] Med Orders - Current: Current Medications Discontinued Medications Azithromycin (Zithromax) 500 mg PO Q24H [facility] Last Admin: 12/23/19 16:05 Dose: 500 mg Documented by: Diltiazem HCl (Cardizem Cd) 120 mg PO DAILY [facility] Last Admin: 12/25/19 08:57 Dose: 120 mg Documented by: Fluticasone Propionate (Flonase) 0 gm NASBOTH DAILY PRN PRN Reason: NASAL CONGESTION Last Admin: 12/23/19 14:30 Dose: 2 spray Documented by: Folic Acid (Folic Acid) 1 mg IV DAILY [facility] Last Admin: 12/25/19 08:57 Dose: 1 mg Documented by: Lactated Ringer's (Ringers, Lactated) 1,000 mls @ 999 mls/hr IV .BOLUS ONE Stop: 12/23/19 10:49 Last Admin: 12/23/19 10:06 Dose: 999 mls/hr Documented by: Pantoprazole Sodium 40 mg/ (Sodium Chloride) 20 mls @ 420 mls/hr IVPUSH ONETIME ONE Stop: 12/23/19 09:53 Last Admin: 12/23/19 10:06 Dose: 420 mls/hr Documented by: Lactated Ringer's (Ringers, Lactated) 1,000 mls @ 75 mls/hr IV ASDIRECTED [facility] Last Admin: 12/24/19 08:28 Dose: 75 mls/hr Documented by: Pantoprazole Sodium 40 mg/ (Sodium Chloride) 10 mls @ 300 mls/hr IV Q12H [facility] Last Admin: 12/25/19 12:27 Dose: Not Given Documented by: Thiamine HCl 100 mg/ Sodium (Chloride) 101 mls @ 202 mls/hr IV DAILY [facility] Last Admin: 12/25/19 09:58 Dose: 202 mls/hr Documented by: Potassium Chloride 40 meq/ (Premix) 100 mls @ 25 mls/hr IV ONETIME ONE Stop: 12/23/19 18:26 Last Admin: 12/23/19 16:06 Dose: 25 mls/hr Documented by: Metronidazole 500 mg/ Premix 100 mls @ 100 mls/hr IV TID [facility] Last Admin: 12/25/19 06:54 Dose: 100 mls/hr Documented by: Ciprofloxacin/Dextrose 400 mg/ (Premix) 200 mls @ 200 mls/hr IV Q12H [facility] Last Admin: 12/25/19 12:26 Dose: Not Given Documented by: Iopamidol (Isovue-370 (76%)) 80 ml IVPUSH ONETIME ONE Stop: 12/23/19 21:45 Last Admin: 12/23/19 21:44 Dose: 80 ml Documented by: Lidocaine (Lidoderm 5%) 700 mg TOP Q24H [facility] Last Admin: 12/24/19 15:54 Dose: 700 mg Documented by: Lisinopril (Prinivil) 20 mg PO DAILY [facility] Last Admin: 12/25/19 08:56 Dose: 20 mg Documented by: Lorazepam (Ativan) 0 mg IVPUSH Q4H PRN; Protocol PRN Reason: CIWAA Ondansetron HCl (Zofran) 4 mg IVPUSH Q4H PRN PRN Reason: Nausea Sodium Chloride (Saline Flush) 10 ml FLUSH ASDIRECTED PRN PRN Reason: Keep Vein Open Last Admin: 12/23/19 10:11 Dose: 10 ml Documented by: Sodium Chloride (Saline Flush) 2.5 ml FLUSH ASDIRECTED PRN PRN Reason: Keep Vein Open Last Admin: 12/23/19 10:11 Dose: 2.5 ml Documented by: - Free Text/Narrative Note: I have seen and evaluated the patient. I have discussed findings and treatment plan with resident. I agree with the assessment and plan in the following note.
[2019-12-25] MEDS: Ciprofloxacin in D5W 400 MG in Premix Bag 1 BAG IV SCH ×4 (12:16→12:26)
== END 2019-12-25 13:38 | disposition home or self-care (01) ==
LOC: MW.ED 09:43 → MW.MS 11:07
PROVIDERS: ADMIT Internal Medicine; ATTEND Internal Medicine
DX: K57.93 Diverticulitis of intestine, part unspecified, without perforation or abscess with bleeding (principal); R55 Syncope and collapse; F10.10 Alcohol abuse, uncomplicated; I10 Essential (primary) hypertension; J44.9 Chronic obstructive pulmonary disease, unspecified; F17.210 Nicotine dependence, cigarettes, uncomplicated; I25.10 Atherosclerotic heart disease of native coronary artery without angina pectoris; G89.29 Other chronic pain; E78.00 Pure hypercholesterolemia, unspecified; M54.5 Low back pain; Z79.899 Other long term (current) drug therapy; Z95.5 Presence of coronary angioplasty implant and graft; Z88.1 Allergy status to other antibiotic agents; Z20.828 Contact with and (suspected) exposure to other viral communicable diseases
CPT/HCPCS: 36415; 71045; 74177; 80053; 81003; 82272; 83735; 83880; 84100; 84484; 85018; 85025; 85610; 93005; 96374; 99285; A9270; C9113; J0744; J3411; J3480; J3490; J7120; Q9967; U0002; 93010; 96361; 96365; 96366; 96367; 96375; 96376; G0378

== ENCOUNTER 2020-02-23 08:45 | Day surgery (SDC) | payer MEDICARE, OTHER ==
[~2020-02-23 08:45] MED LIST: Lactated Ringers 1,000 ML IV SCH; Sodium Chloride 0.9% 10 ML SDV IV PRN; Sodium Chloride 0.9% 10 ML Syringe FLUSH PRN; Sodium Chloride 0.9% 2.5 ML Syringe FLUSH PRN
--- NOTE | 2020-02-23 09:50 | PCM.PREANE ---
Preanesthetic Assessment - Anesthesia/Transfusion/Family Hx Anesthesia History: Prior Anesthesia Without Reaction Family History of Anesthesia Reaction: No Transfusion History: Unknown Intubation History: Unknown - Review of Systems General: No Symptoms Pulmonary: No Symptoms Cardiovascular: No Symptoms Gastrointestinal: Diarrhea, Hematochezia Neurological: No Symptoms Other: Reports: None - Physical Assessment Height: 5 ft 9 in Weight: 72.575 kg ASA Class: 3 Mental Status: Alert & Oriented x3 Airway Class: Mallampati = 2 Dentition: Reports: Dentures (upper and lower) Thyro-Mental Finger Breadths: 3 ROM/Head Extension: Limited/Partial Lungs: Clear to Auscultation, Normal Respiratory Effort Cardiovascular: Regular Rate, Irregular Rhythm - Allergies Allergies/Adverse Reactions: Allergies Allergy/AdvReac Type Severity Reaction Status Date / Time levofloxacin [From Levaquin] Allergy Body Aches Verified 02/17/20 07:38 - Blood Blood Available: No - Anesthesia Plan Pre-Op Medication Ordered: None - Acknowledgements Anesthesia Type Planned: MAC Pt an Appropriate Candidate for the Planned Anesthesia: Yes Alternatives and Risks of Anesthesia Discussed w Pt/Guardian: Yes Pt/Guardian Understands and Agrees with Anesthesia Plan: Yes PreAnesthesia Questionnaire HEENT History: Reports: Hard of Hearing, Impaired Vision, Other (See Below) Other HEENT History: wears glasses, upper and lower denture, agusto hearing aids Cardiovascular History: Reports: Afib, CAD, High Cholesterol, Hypertension, Stents (x2 2010 - ok since), Other (See Below) (fell couple of months ago (syncopy - passed out) injuryng his ribs- spent several days in the hospital) Respiratory History: Reports: COPD Gastrointestinal History: Reports: GI Bleed, Hemorrhoids Other Gastrointestinal History: pt states he fainted while on the toilet and woke up with a large amount of blood around him. 12/23/19 was take to the hospital by [facility] and was hospitalized for 4 days for a GI bleed. Unsure if he was given a blood transfusion. Genitourinary History: Reports: None Musculoskeletal History: Reports: Arthritis, Back Pain, Chronic, Fracture, Gout, Osteoporosis Other Musculoskeletal History: hx fx foot Neurological History: Reports: None Psychiatric History: Reports: Depression Endocrine/Metabolic History: Reports: None Hematologic History: Reports: Other (See Below) Other Hematologic History: unsure if any transfusion Immunologic History: Reports: None Oncologic (Cancer) History: Reports: Basal Cell Carcinoma Dermatologic History: Reports: None - Infectious Disease History Infectious Disease History: Reports: Chicken Pox - Past Surgical History Head Surgeries/Procedures: Reports: None HEENT Surgical History: Reports: None Cardiovascular Surgical History: Reports: Coronary Artery Stent Other Cardiovascular Surgeries/Procedures: cardiac stents 2010 Respiratory Surgical History: Reports: None GI Surgical History: Reports: None Male Surgical History: Reports: Vasectomy Endocrine Surgical History: Reports: None Neurological Surgical History: Reports: Lumbar Spine Other Neurological Surgeries/Procedures: back surgeries x3 Musculoskeletal Surgical History: Reports: Other (See Below) Other Musculoskeletal Surgeries/Procedures:: growth removed from top of foot Oncologic Surgical History: Reports: None Dermatological Surgical History: Reports: Skin Biopsy, Skin Graft, Other (See Below) - SUBSTANCE USE Tobacco Use Status *Q: Current Every Day Tobacco User Tobacco Use Within Last Twelve Months: Cigarettes Days Per Week of Alcohol Use: 7 Number of Drinks Per Day: 2 Total Drinks Per Week: 14 - HOME MEDS Home Medications: Home Meds Clopidogrel [Plavix] 75 mg PO DAILY 09/04/17 [History] Diltiazem [Cardizem CD] 120 mg PO DAILY 09/04/17 [History] Simvastatin [Zocor] 10 mg PO BEDTIME 09/04/17 [History] Colchicine 0.6 mg PO ASDIRECTED PRN 12/23/19 [History] Fluticasone Propionate 2 sprays NASBOTH DAILY PRN 12/23/19 [History] lisinopriL [Prinivil] 20 mg PO BEDTIME 12/23/19 [History] Albuterol [Ventolin HFA] 1 - 2 puff INH ASDIRECTED PRN 02/17/20 [History] Aspirin [Adult Aspirin Regimen] 81 mg PO ASDIRECTED 02/17/20 [History] Denosumab [Prolia] 1 injection IM ASDIRECTED 02/17/20 [History] Incruse Ellipta 1 puff INH DAILY PRN 02/17/20 [History] predniSONE 2 tab PO ASDIRECTED PRN 02/17/20 [History] - CURRENT (IN HOUSE) MEDS Current Meds: Current Medications Lactated Ringer's (Ringers, Lactated) 1,000 mls @ 125 mls/hr IV ASDIRECTED LITTLE Sodium Chloride (Saline Flush) 10 ml FLUSH ASDIRECTED PRN PRN Reason: Keep Vein Open Sodium Chloride (Saline Flush) 2.5 ml FLUSH ASDIRECTED PRN PRN Reason: Keep Vein Open Sodium Chloride (Saline Flush) 10 ml FLUSH ASDIRECTED PRN PRN Reason: Keep Vein Open Sodium Chloride (Saline Flush) 2.5 ml FLUSH ASDIRECTED PRN PRN Reason: Keep Vein Open Sodium Chloride (Normal Saline) 10 ml IV ASDIRECTED PRN PRN Reason: IV Use
[2020-02-23] MEDS ORDERED: Lidocaine 2% 5 ML SDV ONE (10:00)
[2020-02-23] MEDS ORDERED: fentaNYL 100 MCG/2 ML SDV ONE (10:01)
[2020-02-23] MEDS ORDERED: Propofol 200 MG/20 ML SDV ONE ×2 (10:01→11:27)
[2020-02-23] MEDS ORDERED: Glycopyrrolate 0.2 MG/ML SDV ONE (11:22)
[2020-02-23] MEDS ORDERED: Water For Injection, Sterile 20 ML ONE (11:37)
[2020-02-23] MEDS ORDERED: cefOXitin 1 GM Vial ONE (11:37)
--- NOTE | 2020-02-23 12:09 | PCM.OPNOTE ---
- General Post-Op/Procedure Note Date of Surgery/Procedure: 02/23/20 Operative Procedure(s): Diagnostic colonoscopy with polypectomy and biopsy Findings: Cecal polyp, transverse colon biopsy, transverse colon polyp x 4, descending colon polyp x 3, diverticulosis throughout colon Pre Op Diagnosis: diverticulosis Post-Op Diagnosis: Diverticulosis, cecal polyp, descending colon polyp x 3, transverse colon polyp x 4, transverse colon biopsy Anesthesia Technique: MAC Primary Surgeon: Evy Hi Condition: Good
--- NOTE | 2020-02-23 13:08 | PCM.POSTAN ---
POST ANESTHESIA ASSESSMENT - MENTAL STATUS Mental Status: Alert, Oriented - VITAL SIGNS Vital Signs: Last Vital Signs Temp 36.6 C 02/23/20 09:41 Pulse 78 02/23/20 12:14 Resp 17 02/23/20 12:14 BP 131/84 02/23/20 12:14 Pulse Ox 96 02/23/20 12:14 - RESPIRATORY Respiratory Status: Respiratory Rate WNL, Airway Patent, O2 Saturation Stable - CARDIOVASCULAR CV Status: Pulse Rate WNL, Blood Pressure Stable - GASTROINTESTINAL GI Status: No Symptoms - PAIN Pain Score: 0 - POST OP HYDRATION Hydration Status: Adequate & Stable - OBSERVATIONS Free Text/Narrative:: No anesthesia problems
--- NOTE | 2020-02-23 13:09 | PCM48HPAN ---
Post Anesthesia Note - EVALUATION WITHIN 48HRS OF ANESTHETIC Vital Signs in Normal Range: Yes Patient Participated in Evaluation: Yes Respiratory Function Stable: Yes Airway Patent: Yes Cardiovascular Function Stable: Yes Hydration Status Stable: Yes Pain Control Satisfactory: Yes Nausea and Vomiting Control Satisfactory: Yes Mental Status Recovered: Yes Vital Signs: Last Vital Signs Temp 36.6 C 02/23/20 09:41 Pulse 78 02/23/20 12:14 Resp 17 02/23/20 12:14 BP 131/84 02/23/20 12:14 Pulse Ox 96 02/23/20 12:14 - COMMENTS/OBSERVATIONS Free Text/Narrative:: No anesthesia problems
--- NOTE | 2020-02-23 15:17 | OR ---
SURGEON: EVY HI MD DATE OF PROCEDURE: 02/23/2020 PREOPERATIVE DIAGNOSIS: History of diverticulitis. POSTOPERATIVE DIAGNOSES: 1. Diverticulosis. 2. Cecal polyp. 3. Transverse colon lesion. 4. Transverse colon polyps x4. 5. Descending colon polyp x3. PROCEDURE PERFORMED: Diagnostic colonoscopy with biopsy and polypectomy. PRIMARY SURGEON: Evy Hi MD ANESTHESIA: MAC. INSTRUMENT USED: Olympus colonoscope. EXTENT OF EXAM: To the cecum. PREPARATION: Fair. LIMITATIONS: Stool in colon. INDICATIONS: The patient is a 79-year-old male who was recently admitted to the hospital few months ago with diverticulitis. As a part of his workup, he was noted to have diverticula throughout his colon. The patient cannot remember the last time he has had a colonoscopy. I explained the need for diagnostic colonoscopy as part of his followup. I explained the procedure; expected perioperative course; and the risks including bleeding, infection, or damage to surrounding structures including perforation. The patient verbalized understanding and wishes to proceed. PROCEDURE IN DETAIL: The patient was brought into the endoscopy suite and placed in the left lateral decubitus position. A time-out was completed verifying the patient's name, age, date of , allergies, and procedure to be performed. Monitored anesthesia care was induced and continuous oxygen was provided via nasal cannula throughout the procedure. After adequate sedation was achieved, a digital rectal exam was performed. This exam was within normal limits. A well-lubricated colonoscope was inserted in the rectum and advanced under direct visualization to the level of the cecum. The cecum was identified by both visual and anatomic landmarks. A photograph was taken of the cecal cap; however, due to looping of the scope more proximally, I was unable to retroflex the scope within the cecum. The scope was then fully withdrawn while examining the color, texture, anatomy, and integrity of the mucosa from the cecum to the anal canal. Within the cecal cap, just adjacent to the appendiceal orifice, the patient was noted to have a small sessile polyp. This was removed in piecemeal fashion using cold biopsy forceps. The patient was noted to have diverticulosis throughout the colon. There were multiple diverticula of varying sizes. At the hepatic flexure where the patient had had previous episode of diverticulitis, a photograph was taken. There were multiple large appearing pockets in this area and there was stool still within some of these pockets. The patient had multiple small fecaliths throughout the colon. This was likely due to the number of diverticula that the patient had. In the proximal transverse colon, the patient had an abnormal appearing area of mucosa. This did not overtly appear to be a polyp, but had a different texture than the mucosa around it. A biopsy was taken and sent to pathology, labeled as transverse colon biopsy. The area was then inked for identification in the future should this be a polyp. Throughout the remainder of this transverse colon, the patient was noted to have small sessile polyps. Four of these were noted. These were all removed in piecemeal fashion using cold biopsy forceps. In the descending colon, the patient was noted to have two small sessile polyps, which were labeled as descending colon polyp 1 and 3. These were removed with cold biopsy forceps. Descending colon polyp number 2 was larger and pedunculated. It was removed using a hot snare. The patient's sigmoid colon was normal other than multiple diverticula. The scope was brought into the rectum and retroflexed to allow visualization of the anal canal opening. This appeared normal and a photograph was taken. Cecum to anus time was 41 minutes. The patient tolerated the procedure well and was transferred to the PACU in stable condition. ENDOSCOPIC DIAGNOSES: 1. Diverticulosis. 2. Cecal polyp. 3. Transverse colon lesion. 4. Transverse colon polyps x4. 5. Descending colon polyp x3. RECOMMENDATIONS: I visited with the patient and his daughter in the postoperative care area. I will follow up with the patient in clinic in 2 weeks to discuss his biopsy results and next steps in treatment. ISHAN COUCH /[id number]
== END 2020-02-23 12:55 | disposition home or self-care (01) ==
LOC: MW.SDS 08:45
PROVIDERS: ATTEND Surgery
DX: Z09 Encounter for follow-up examination after completed treatment for conditions other than malignant neoplasm (principal); D12.0 Benign neoplasm of cecum; D12.3 Benign neoplasm of transverse colon; D12.4 Benign neoplasm of descending colon; K57.30 Diverticulosis of large intestine without perforation or abscess without bleeding; J44.1 Chronic obstructive pulmonary disease with (acute) exacerbation; I25.10 Atherosclerotic heart disease of native coronary artery without angina pectoris; F17.210 Nicotine dependence, cigarettes, uncomplicated; E78.00 Pure hypercholesterolemia, unspecified; I10 Essential (primary) hypertension; Z86.73 Personal history of transient ischemic attack (TIA), and cerebral infarction without residual deficits; Z88.8 Allergy status to other drugs, medicaments and biological substances; Z79.82 Long term (current) use of aspirin; Z79.899 Other long term (current) drug therapy; Z98.890 Other specified postprocedural states
CPT/HCPCS: 45380; 45385; 88305; J0694; J2001; J2704; J3010; J3490; J7120

== ENCOUNTER 2020-10-11 09:16 | Emergency (ER) | payer MEDICARE, OTHER ==
[2020-10-11] MEDS ORDERED: Sodium Chloride 0.9% 10 ML Syringe FLUSH PRN (09:52)
[2020-10-11] MEDS ORDERED: Sodium Chloride 0.9% 2.5 ML Syringe FLUSH PRN (09:52)
[2020-10-11] MEDS ORDERED: methylPREDNISolone Sodium Succinate 125 MG/2 ML SDV IVPUSH ONE (09:52)
[2020-10-11] MEDS ORDERED: Albuterol 8 GM Inhaler INH STA (09:52)
--- NOTE | 2020-10-11 09:55 | EDM.PDOC ---
ED HPI GENERAL MEDICAL PROBLEM - General Chief Complaint: Respiratory Problem Stated Complaint: CHEST PAIN SOB Time Seen by Provider: 10/11/20 09:38 - History of Present Illness INITIAL COMMENTS - FREE TEXT/NARRATIVE: History of present illness: [] The patient stopped smoking 10 days ago because he was short of breath. He was not terribly short of breath until yesterday. Since yesterday he suddenly was out in the garden and felt like he could not get his breath at all. He has some chest tightness associated with it. He is even short of breath at rest now. Patient has a history of COPD. He uses only an inhaler and the inhaler itself he puts in his mouth without a extension spacer. The patient has no fever and chills. He has been vaccinated for COVID-19. This patient was seen and evaluated during the 2019 SARS-CoV-2 novel coronavirus pandemic period. Community viral transmission is ongoing at time of this encounter and the emergency department is operating under pandemic response procedures. Review of systems: As per history of present illness and below otherwise all systems reviewed and negative. Past medical history: As per history of present illness and as reviewed below otherwise noncontributory. Surgical history: As per history of present illness and as reviewed below otherwise noncontributory. Social history: No reported history of drug or alcohol abuse. Family history: As per history of present illness and as reviewed below otherwise noncontributory. Physical exam: Constitutional - well developed, well-nourished and in no acute distress HEENT - normocephalic, no evidence of trauma - external nose and mouth normal - no mass in neck and no JVD - mucosae moist EYES - full EOM, PERRL, no icterus - no evidence of inflammation, injection, or drainage Respiratory -mild respiratory distress, equal bilateral expansion, lungs long expiratory phase of respiration with diminished breath sounds and scattered wheezes. Cardiovascular - Regular Rhythm with S1 and S2 appreciated and no murmur, gallop or rub. GI - abdomen soft without distension or organomegaly - normal bowel sounds - no guard or rebound Musculoskeletal no gross deformity of long bones or joints - no tenderness, swelling or edema Neurologic - Alert and oriented times four - CN II-XII grossly intact - motor sensory and coordination symmetrically normal Psychiatric - appropriate mood and affect with normal thought content Hematologic - No petechiae or purpura - mucosa appropriate color and sclera not pale - normal nail bed color and refill Integument - no rash or evidence of trauma - normal turgor Diagnostics: [] Therapeutics: [] Impression: [] Plan: [] Definitive disposition and diagnosis as appropriate pending reevaluation and review of above. - Related Data Allergies Allergy/AdvReac Type Severity Reaction Status Date / Time levofloxacin [From Levaquin] Allergy Body Aches Verified 10/11/20 09:24 Home Meds: Home Meds Clopidogrel [Plavix] 75 mg PO DAILY 09/04/17 [History] Diltiazem [Cardizem CD] 120 mg PO DAILY 09/04/17 [History] Simvastatin [Zocor] 10 mg PO BEDTIME 09/04/17 [History] Colchicine 0.6 mg PO ASDIRECTED PRN 12/23/19 [History] Fluticasone Propionate 2 sprays NASBOTH DAILY PRN 12/23/19 [History] lisinopriL [Prinivil] 20 mg PO BEDTIME 12/23/19 [History] Albuterol [Ventolin HFA] 1 - 2 puff INH ASDIRECTED PRN 02/17/20 [History] Aspirin [Adult Aspirin Regimen] 81 mg PO ASDIRECTED 02/17/20 [History] Denosumab [Prolia] 1 injection IM ASDIRECTED 02/17/20 [History] Incruse Ellipta 1 puff INH DAILY PRN 02/17/20 [History] predniSONE 2 tab PO ASDIRECTED PRN 02/17/20 [History] predniSONE [Prednisone] 60 mg PO DAILY 5 Days #15 tablet 10/11/20 [Rx] Past Medical History HEENT History: Reports: Hard of Hearing, Impaired Vision, Other (See Below) Other HEENT History: wears glasses, upper and lower denture, agusto hearing aids Cardiovascular History: Reports: Afib, CAD, High Cholesterol, Hypertension, Stents, Other (See Below) Respiratory History: Reports: COPD Gastrointestinal History: Reports: GI Bleed, Hemorrhoids Other Gastrointestinal History: pt states he fainted while on the toilet and woke up with a large amount of blood around him. 12/23/19 was take to the hospital by [facility] and was hospitalized for 4 days for a GI bleed. Unsure if he was given a blood transfusion. Genitourinary History: Reports: None Musculoskeletal History: Reports: Arthritis, Back Pain, Chronic, Fracture, Gout, Osteoporosis Other Musculoskeletal History: hx fx foot Neurological History: Reports: None Psychiatric History: Reports: Depression Endocrine/Metabolic History: Reports: None Hematologic History: Reports: Other (See Below) Other Hematologic History: unsure if any transfusion Immunologic History: Reports: None Oncologic (Cancer) History: Reports: Basal Cell Carcinoma Dermatologic History: Reports: None - Infectious Disease History Infectious Disease History: Reports: Chicken Pox - Past Surgical History Head Surgeries/Procedures: Reports: None HEENT Surgical History: Reports: None Cardiovascular Surgical History: Reports: Coronary Artery Stent Other Cardiovascular Surgeries/Procedures: cardiac stents 2010 Respiratory Surgical History: Reports: None GI Surgical History: Reports: None Male Surgical History: Reports: Vasectomy Endocrine Surgical History: Reports: None Neurological Surgical History: Reports: Lumbar Spine Other Neurological Surgeries/Procedures: back surgeries x3 Musculoskeletal Surgical History: Reports: Other (See Below) Other Musculoskeletal Surgeries/Procedures:: growth removed from top of foot Oncologic Surgical History: Reports: None Dermatological Surgical History: Reports: Skin Biopsy, Skin Graft, Other (See Be low) Social & Family History - Family History Family Medical History: No Pertinent Family History - Tobacco Use Tobacco Use Status *Q: Former Tobacco User Used Tobacco, but Quit: Yes Month/Year Tobacco Last Used: 10 day - Caffeine Use Caffeine Use: Reports: None - Alcohol Use Days Per Week of Alcohol Use: 7 Number of Drinks Per Day: 7 Total Drinks Per Week: 49 - Recreational Drug Use Recreational Drug Use: No ED ROS GENERAL - Review of Systems Review Of Systems: Comprehensive ROS is negative, except as noted in HPI. ED EXAM, GENERAL - Physical Exam Exam: See Below Free Text/Narrative:: My physical exam is in the HPI #1 Interpretation EKG Interpretation Comments: KG performed 10/11/2020 at 9:22 AM shows a sinus rhythm with a heart rate 74 DE interval 186 QT duration 456 axis 52 atrial premature complex noted in there is a premature conversion to R wave in the precordium. Compared to 12/23/2019 no change impression no acute injury Course - Vital Signs Text/Narrative:: 11:07 AM the patient feels some better. He is Covid negative so we will give him nebulized DuoNeb. He understands how to use his chamber. He will be sent home on steroids increase fluids use a spirometer which he has at home and discharged with a diagnosis of bronchospasm, bronchitis, and atelectasis The x-ray showed significant atelectasis in the right lung. Last Recorded V/S: Last Vital Signs Temp 36.7 C 10/11/20 09:20 Pulse 68 10/11/20 10:42 Resp 18 10/11/20 10:42 BP 153/79 H 10/11/20 10:42 Pulse Ox 97 10/11/20 10:42 - Orders/Labs/Meds Orders: Active Orders 24 hr Category Date Time Status EKG Documentation Completion [RC] AM Care 10/11/20 09:52 Active RT Aerosol Therapy [RC] ASDIRECTED Care 10/11/20 11:06 Ordered RT Post Treatment Assessment [RC] Click to Edit Care 10/11/20 09:52 Active RT Pre-Treatment Assessment [RC] Click to Edit Care 10/11/20 09:52 Active Chest 1V Frontal [CR] Stat Exams 10/11/20 09:53 Taken Albuterol/Ipratropium [DuoNeb 3.0-0.5 MG/3 ML] Med 10/11/20 11:06 Once 3 ml NEB ONETIME ONE Sodium Chloride 0.9% [Saline Flush] Med 10/11/20 09:52 Active 10 ml FLUSH ASDIRECTED PRN Sodium Chloride 0.9% [Saline Flush] Med 10/11/20 09:52 Active 2.5 ml FLUSH ASDIRECTED PRN Saline Lock Insert [OM.PC] Stat Oth 10/11/20 09:52 Ordered Medication Orders Sodium Chloride (Sodium Chloride 0.9% 10 Ml Syringe) 10 ml FLUSH ASDIRECTED PRN PRN Reason: Keep Vein Open Last Admin: 10/11/20 09:58 Dose: 10 ml Documented by: MARGIE Sodium Chloride (Sodium Chloride 0.9% 2.5 Ml Syringe) 2.5 ml FLUSH ASDIRECTED PRN PRN Reason: Keep Vein Open Last Admin: 10/11/20 09:58 Dose: 2.5 ml Documented by: MARGIE Labs: Laboratory Tests 10/11/20 10/11/20 10/11/20 Range/Units 09:22 09:22 09:58 WBC 10.26 (4.0-11.0) K/uL RBC 3.94 L (4.50-5.90) M/uL Hgb 15.1 (13.0-17.0) g/dL Hct 43.0 (38.0-50.0) % MCV 109.1 H (80.0-98.0) fL MCH 38.3 H (27.0-32.0) pg MCHC 35.1 (31.0-37.0) g/dL RDW Std Deviation 59.7 (28.0-62.0) fl RDW Coeff of Anibal 15 (11.0-15.0) % Plt Count 210 (150-400) K/uL MPV 11.30 (7.40-12.00) fL Neut % (Auto) 69.0 (48.0-80.0) % Lymph % (Auto) 19.9 (16.0-40.0) % [place] % (Auto) 9.9 (0.0-15.0) % Eos % (Auto) 1.0 (0.0-7.0) % Baso % (Auto) 0.2 (0.0-1.5) % Neut # (Auto) 7.1 H (1.4-5.7) K/uL Lymph # (Auto) 2.0 (0.6-2.4) K/uL [place] # (Auto) 1.0 H (0.0-0.8) K/uL Eos # (Auto) 0.1 (0.0-0.7) K/uL Baso # (Auto) 0.0 (0.0-0.1) K/uL Nucleated RBC % 0.0 /100WBC Nucleated RBCs # 0 K/uL Sodium 141 (136-148) mmol/L Potassium 3.7 (3.5-5.1) mmol/L Chloride 104 (98-107) mmol/L Carbon Dioxide 30.6 (21.0-32.0) mmol/L BUN 7 (7.0-18.0) mg/dL Creatinine 0.9 (0.8-1.3) mg/dL Est Cr Clr Drug Dosing 66.55 mL/min Estimated GFR (MDRD) > 60.0 ml/min Glucose 101 (74-106) mg/dL Calcium 8.8 (8.5-10.1) mg/dL Total Bilirubin 0.9 (0.2-1.0) mg/dL AST 21 (15-37) IU/L ALT 14 (14-63) IU/L Alkaline Phosphatase 84 (46-116) U/L Troponin I < 0.050 (0.000-0.056) ng/mL Total Protein 6.8 (6.4-8.2) g/dL Albumin 3.2 L (3.4-5.0) g/dL Globulin 3.6 (2.6-4.0) g/dL Albumin/Globulin Ratio 0.9 (0.9-1.6) SARS-CoV-2 RNA (REBEKA) NEGATIVE (NEGATIVE) Meds: Medications Generic Name Dose Route Start Last Admin Trade Name Freq PRN Reason Stop Dose Admin Sodium Chloride 10 ml 10/11/20 09:52 10/11/20 09:58 Sodium Chloride 0.9% 10 Ml Syringe FLUSH 10 ml ASDIRECTED PRN Administration Keep Vein Open Sodium Chloride 2.5 ml 10/11/20 09:52 10/11/20 09:58 Sodium Chloride 0.9% 2.5 Ml Syringe FLUSH 2.5 ml ASDIRECTED PRN Administration Keep Vein Open Discontinued Medications Generic Name Dose Route Start Last Admin Trade Name Freq PRN Reason Stop Dose Admin Albuterol 8 gm 10/11/20 09:52 10/11/20 09:59 Albuterol 8 Gm Inhaler INH 10/11/20 09:53 2 inhalation ONETIME STA Administration Methylprednisolone Sodium Succinate 125 mg 10/11/20 09:52 10/11/20 09:59 Methylprednisolone Sodium Succinate 125 Mg/2 Ml Sdv IVPUSH 10/11/20 09:53 125 mg ONETIME ONE Administration Departure - Departure Time of Disposition: 11:25 Disposition: Home, Self-Care 01 Condition: Good Clinical Impression: Acute bronchitis, Atelectasis, Bronchospasm - Discharge Information Instructions: Bronchospasm, Adult, Lhyz-[id number], Acute Bronchitis, Adult, Atelectasis, Adult Forms: ED Department Discharge Additional Instructions: Use use parameter. Drink plenty of fluids. Return if worse. [facility] [address] [place] [id number] [place] [address] The following information is given to patients seen in the emergency department who are being discharged to home. This information is to outline your options for follow-up care. We provide all patients seen in our emergency department with a follow-up referral. The need for follow-up, as well as the timing and circumstances, are variable depending upon the specifics of your emergency department visit. If you don't have a primary care physician on staff, we will provide you with a referral. We always advise you to contact your personal physician following an emergency department visit to inform them of the circumstance of the visit and for follow-up with them and/or the need for any referrals to a consulting specialist. The emergency department will also refer you to a specialist when appropriate. This referral assures that you have the opportunity for follow-up care with a specialist. All of these measure are taken in an effort to provide you with optimal care, which includes your follow-up. Under all circumstances we always encourage you to contact your private physician who remains a resource for coordinating your care. When calling for follow-up care, please make the office aware that this follow-up is from your recent emergency room visit. If for any reason you are refused follow-up, please contact the [facility] Emergency Department at and asked to speak to the emergency department charge nurse. Sepsis Event Note (ED) - Evaluation Sepsis Screening Result: No Definite Risk - Focused Exam Vital Signs: Vital Signs Temp Pulse Resp BP Pulse Ox 10/11/20 10:42 68 18 153/79 H 97 10/11/20 10:06 90 18 162/87 H 97 10/11/20 09:31 80 18 169/51 H 97 10/11/20 09:20 36.7 C 80 18 171/87 H 94 L - My Orders Last 24 Hours: My Active Orders 10/11/20 09:52 EKG Documentation Completion [RC] AM RT Post Treatment Assessment [RC] Click to Edit RT Pre-Treatment Assessment [RC] Click to Edit Sodium Chloride 0.9% [Saline Flush] 10 ml FLUSH ASDIRECTED PRN Sodium Chloride 0.9% [Saline Flush] 2.5 ml FLUSH ASDIRECTED PRN Saline Lock Insert [OM.PC] Stat 10/11/20 09:53 Chest 1V Frontal [CR] Stat 10/11/20 11:06 RT Aerosol Therapy [RC] ASDIRECTED Albuterol/Ipratropium [DuoNeb 3.0-0.5 MG/3 ML] 3 ml NEB ONETIME ONE - Assessment/Plan Last 24 Hours: My Active Orders 10/11/20 09:52 EKG Documentation Completion [RC] AM RT Post Treatment Assessment [RC] Click to Edit RT Pre-Treatment Assessment [RC] Click to Edit Sodium Chloride 0.9% [Saline Flush] 10 ml FLUSH ASDIRECTED PRN Sodium Chloride 0.9% [Saline Flush] 2.5 ml FLUSH ASDIRECTED PRN Saline Lock Insert [OM.PC] Stat 10/11/20 09:53 Chest 1V Frontal [CR] Stat 10/11/20 11:06 RT Aerosol Therapy [RC] ASDIRECTED Albuterol/Ipratropium [DuoNeb 3.0-0.5 MG/3 ML] 3 ml NEB ONETIME ONE
[2020-10-11 10:11] LABS: BLOOD UREA NITROGEN,BUN 7 mg/dL (7.0-18.0); CARBON DIOXIDE,CO2 30.6 mmol/L (21.0-32.0); CHLORIDE,CL 104 mmol/L (98-107); GLUCOSE RANDOM 101 mg/dL (74-106); POTASSIUM,K 3.7 mmol/L (3.5-5.1); SODIUM,NA 141 mmol/L (136-148)
[2020-10-11] MEDS ORDERED: Albuterol/Ipratropium 3.0-0.5 MG/3 ML Neb Soln NEB ONE (11:06)
--- NOTE | 2020-10-11 11:10 | CR ---
INDICATION: Dyspnea. COMPARISON: AP chest radiograph 01/22/2020. TECHNIQUE: AP chest. FINDINGS: Normal size cardiac silhouette. Dilated ascending thoracic aorta. A 3.7 x 1.8 cm elliptical soft tissue density projecting over the right midlung zone; suggest obtaining a CT chest for further assessment. No pneumothorax or pleural effusion. No evidence of CHF. Impression : A 3.7 x 1.8 cm elliptical soft tissue density projecting over the right mid lung zone; consider obtaining a chest CT for further assessment. 1. No evidence of CHF. Dictated by Tyo Hernandez MD @ 10/11/2020 11:08:[address] Toy Hernandez @ Oct 11 2020 11:08AM
== END 2020-10-11 11:37 | disposition home or self-care (01) ==
LOC: MW.ED 09:16
DX: J20.9 Acute bronchitis, unspecified (principal); J98.11 Atelectasis; I48.91 Unspecified atrial fibrillation; I25.10 Atherosclerotic heart disease of native coronary artery without angina pectoris; E78.00 Pure hypercholesterolemia, unspecified; J44.9 Chronic obstructive pulmonary disease, unspecified; I10 Essential (primary) hypertension; Z87.891 Personal history of nicotine dependence; Z20.822 Contact with and (suspected) exposure to COVID-19
CPT/HCPCS: 36415; 71045; 80053; 84484; 85025; 93005; 94640; 96374; 99285; A9270; J2930; U0002; J7620-GY

== ENCOUNTER 2021-01-03 06:33 | Day surgery (SDC) | payer MEDICARE, OTHER ==
--- NOTE | 2021-01-03 07:18 | PCM.PREANE ---
Preanesthetic Assessment - Procedure Proposed Procedure: Colonoscopy - Anesthesia/Transfusion/Family Hx Anesthesia History: Prior Anesthesia Without Reaction Family History of Anesthesia Reaction: No Transfusion History: Unknown Intubation History: Unknown - Review of Systems General: No Symptoms Pulmonary: No Symptoms (Smokes 2 cigs/day, COPD) Cardiovascular: No Symptoms (CAD s/p Stents 2010, HTN, HLD) Gastrointestinal: No Symptoms (Diverticulosis, H/o Polyps, occas HB) Neurological: No Symptoms (h/o TIA about 25 years ago no prob since) Other: Reports: None - Physical Assessment NPO Status Date: 01/01/21 NPO Status Time: 21:00 (Solids, >8 Hr Liq) Vital Signs: Last Vital Signs Temp 97.5 F 01/03/21 06:45 Pulse 76 01/03/21 06:45 Resp 16 01/03/21 06:45 BP 159/75 H 01/03/21 06:45 Pulse Ox 95 01/03/21 06:45 Height: 5 ft 9 in Weight: 75.75 kg ASA Class: 3 Mental Status: Alert & Oriented x3 Airway Class: Mallampati = 1 Dentition: Reports: Dentures, Implants Thyro-Mental Finger Breadths: 3 Mouth Opening Finger Breadths: 3 ROM/Head Extension: Full Lungs: Clear to Auscultation, Normal Respiratory Effort Cardiovascular: Regular Rate, Regular Rhythm - Allergies Allergies/Adverse Reactions: Allergies Allergy/AdvReac Type Severity Reaction Status Date / Time levofloxacin [From Levaquin] Allergy Body Aches Verified 12/28/20 09:14 - Acknowledgements Anesthesia Type Planned: General Anesthesia Pt an Appropriate Candidate for the Planned Anesthesia: Yes Alternatives and Risks of Anesthesia Discussed w Pt/Guardian: Yes Pt/Guardian Understands and Agrees with Anesthesia Plan: Yes PreAnesthesia Questionnaire HEENT History: Reports: Hard of Hearing, Impaired Vision, Macular Degeneration, Other (See Below) Other HEENT History: wears glasses, upper and lower denture, agusto hearing aids, dental implants Cardiovascular History: Reports: Afib, CAD, High Cholesterol, Hypertension, Stents Respiratory History: Reports: COPD Gastrointestinal History: Reports: Colon Polyp, Diverticulosis, GI Bleed, Hemorrhoids Other Gastrointestinal History: 12/23/19 was take to the hospital by [facility] and was hospitalized for 4 days for a GI bleed. Unsure if he was given a blood transfusion. Genitourinary History: Reports: None Musculoskeletal History: Reports: Arthritis, Back Pain, Chronic, Fracture, Gout, Osteoporosis Other Musculoskeletal History: hx fx foot Neurological History: Reports: TIA Psychiatric History: Reports: Depression Endocrine/Metabolic History: Reports: None Hematologic History: Reports: Anticoagulation Therapy, Other (See Below) Other Hematologic History: unsure if any transfusion Immunologic History: Reports: None Oncologic (Cancer) History: Reports: Basal Cell Carcinoma Dermatologic History: Reports: None - Infectious Disease History Infectious Disease History: Reports: Chicken Pox - Past Surgical History Head Surgeries/Procedures: Reports: None HEENT Surgical History: Reports: None Cardiovascular Surgical History: Reports: Coronary Artery Stent Other Cardiovascular Surgeries/Procedures: cardiac stents 2010 Respiratory Surgical History: Reports: None GI Surgical History: Reports: Colonoscopy Male Surgical History: Reports: Vasectomy Endocrine Surgical History: Reports: None Neurological Surgical History: Reports: Lumbar Spine Other Neurological Surgeries/Procedures: back surgeries x3 Musculoskeletal Surgical History: Reports: Other (See Below) Other Musculoskeletal Surgeries/Procedures:: growth removed from top of foot Oncologic Surgical History: Reports: None Dermatological Surgical History: Reports: Skin Biopsy, Skin Graft, Other (See Below) - SUBSTANCE USE Tobacco Use Status *Q: Current Some Day Tobacco User Tobacco Use Within Last Twelve Months: Cigarettes Days Per Week of Alcohol Use: 7 Number of Drinks Per Day: 1 Total Drinks Per Week: 7 Recreational Drug Use History: No - HOME MEDS Home Medications: Home Meds Clopidogrel [Plavix] 75 mg PO DAILY 09/04/17 [History] Diltiazem [Cardizem CD] 120 mg PO DAILY 09/04/17 [History] Simvastatin [Zocor] 10 mg PO BEDTIME 09/04/17 [History] Colchicine 0.6 mg PO ASDIRECTED PRN 12/23/19 [History] lisinopriL [Prinivil] 20 mg PO BEDTIME 12/23/19 [History] Albuterol [Ventolin HFA] 1 - 2 puff INH ASDIRECTED PRN 02/17/20 [History] Aspirin [Adult Aspirin Regimen] 81 mg PO ASDIRECTED 02/17/20 [History] Incruse Ellipta 1 puff INH DAILY PRN 02/17/20 [History] Denosumab [Prolia] 1 injection IM ASDIRECTED 12/28/20 [History] Ipratropium/Albuterol Sulfate [Iprat-Albut 0.5-3(2.5) mg/3 ml] 1 dose NEB ASDIRECTED PRN 12/28/20 [History] Magnesium 250 mg PO DAILY 12/28/20 [History] Selenex Supplement 1 tab PO DAILY 12/28/20 [History] Vit A/C/E/Zinc/Selenium/Copper [Vision Formula Tablet] 1 tab PO DAILY 12/28/20 [History] - CURRENT (IN HOUSE) MEDS Current Meds: Current Medications Lactated Ringer's (Ringers, Lactated) 1,000 mls @ 125 mls/hr IV ASDIRECTED LITTLE Last Admin: 01/03/21 07:03 Dose: 125 mls/hr Documented by: Sodium Chloride (Sodium Chloride 0.9% 10 Ml Syringe) 10 ml FLUSH ASDIRECTED PRN PRN Reason: Keep Vein Open Sodium Chloride (Sodium Chloride 0.9% 2.5 Ml Syringe) 2.5 ml FLUSH ASDIRECTED PRN PRN Reason: Keep Vein Open Sodium Chloride (Sodium Chloride 0.9% 10 Ml Syringe) 10 ml FLUSH ASDIRECTED PRN PRN Reason: Keep Vein Open Sodium Chloride (Sodium Chloride 0.9% 2.5 Ml Syringe) 2.5 ml FLUSH ASDIRECTED PRN PRN Reason: Keep Vein Open Sodium Chloride (Sodium Chloride 0.9% 10 Ml Sdv) 10 ml IV ASDIRECTED PRN PRN Reason: IV Use
[2021-01-03] MEDS ORDERED: Propofol 200 MG/20 ML SDV ONE (07:26)
[2021-01-03] MEDS ORDERED: fentaNYL 100 MCG/2 ML SDV ONE (07:26)
--- NOTE | 2021-01-03 09:01 | PCM.POSTAN ---
POST ANESTHESIA ASSESSMENT - MENTAL STATUS Mental Status: Somnolent - VITAL SIGNS Vital Signs: Last Vital Signs Temp 97.5 F 01/03/21 06:45 Pulse 76 01/03/21 06:45 Resp 16 01/03/21 06:45 BP 159/75 H 01/03/21 06:45 Pulse Ox 95 01/03/21 06:45 - RESPIRATORY Respiratory Status: Respiratory Rate WNL, Airway Patent, O2 Saturation Stable, Supplemental Oxygen - CARDIOVASCULAR CV Status: Pulse Rate WNL, Blood Pressure Stable - GASTROINTESTINAL GI Status: No Symptoms - PAIN Free Text/Narrative:: Resting comfortably - POST OP HYDRATION Hydration Status: Adequate & Stable
--- NOTE | 2021-01-03 09:13 | PCM.OPNOTE ---
- General Post-Op/Procedure Note Date of Surgery/Procedure: 01/03/21 Operative Procedure(s): Diagnostic colonoscopy Findings: Small adenomatous polyp at the previously inked area of the transverse colon. One separate transverse colon polyp. One sigmoid colon polyp. Pre Op Diagnosis: History of colon polyps and diverticulosis Post-Op Diagnosis: Transverse colon polyp x 2, sigmoid colon polyp, diverticulosis Anest[place] Technique[place] [facility] [place]: Evy Hi Condition: Good Free Text/Narrative:: Intake & Output 01/02/21 01/03/21 01/03/21 22:59 06:59 14:59 Intake Total 850 Balance 850
--- NOTE | 2021-01-03 09:35 | PCM48HPAN ---
Post Anesthesia Note - EVALUATION WITHIN 48HRS OF ANESTHETIC Vital Signs in Normal Range: Yes Patient Participated in Evaluation: Yes Respiratory Function Stable: Yes Airway Patent: Yes Cardiovascular Function Stable: Yes Hydration Status Stable: Yes Pain Control Satisfactory: Yes Nausea and Vomiting Control Satisfactory: Yes Mental Status Recovered: Yes Vital Signs: Last Vital Signs Temp 96.8 F L 01/03/21 09:15 Pulse 88 01/03/21 09:15 Resp 14 01/03/21 09:15 BP 114/69 01/03/21 09:15 Pulse Ox 94 L 01/03/21 09:15 - COMMENTS/OBSERVATIONS Free Text/Narrative:: Pt doing well post-op. VSS. No apparent anesthetic complications. Dr. Newton Trujillo
--- NOTE | 2021-01-04 17:41 | OR ---
SURGEON: EVY HI MD DATE OF PROCEDURE: 01/03/2021 PREOPERATIVE DIAGNOSIS: History of colon polyps. POSTOPERATIVE DIAGNOSES: 1. Transverse colon polyps x2. 2. Sigmoid colon polyp x1. 3. Diverticulosis. PROCEDURE PERFORMED: Diagnostic colonoscopy with polypectomy. PRIMARY SURGEON: Evy Hi MD ANESTHESIA: MAC. INSTRUMENT USED: Olympus colonoscope. EXTENT OF EXAM: To the cecum. PREPARATION: Fair. LIMITATIONS: None. INDICATIONS FOR EXAMINATION: The patient is an 80-year-old male who I performed a diagnostic colonoscopy on last year for history of diverticulitis. During the case, he was found to have multiple colon polyps. There was a lesion in the transverse colon. This was biopsied and found to be a tubular adenoma. The area was inked. The patient was scheduled to come back in six months to undergo a complete resection of this tubular adenoma, but did not. He presented a year after the original colonoscopy. I explained the need to go back in to remove this polyp. I explained the procedure, expected perioperative course, and the risks. He verbalized understanding and wishes to proceed. PROCEDURE IN DETAIL: The patient was brought in to the endoscopy suite and placed in a left lateral decubitus position. A time-out was completed verifying the patient's name, age, date of , allergies, and procedure to be performed. Monitored anesthesia care was induced and continuous oxygen was provided via nasal cannula throughout the procedure. After adequate sedation was achieved, a digital rectal exam was performed. This exam was within normal limits. A well-lubricated colonoscope was inserted in the rectum and advanced under direct visualization to the level of the cecum. The cecum was identified by both visual and anatomic landmarks. A photograph was taken of the cecal cap as well as with the scope retroflexed within the cecum. The scope was then fully withdrawn while examining the color, texture, anatomy, and integrity of the mucosa from the cecum to the anal canal. In the proximal transverse colon, I identified my inked margin. At this level was an adenomatous-appearing polyp. It was completely resected using a cold biopsy forceps. In the same area but not along the inked margin was a small sessile polyp. This was removed using a cold biopsy forceps and sent to Pathology labeled as transverse colon polyp #2. The patient also had a small sigmoid colon polyp which was removed in similar fashion. The patient had pandiverticulosis throughout his colon. Because of this, the patient did have a fair amount of liquid and some solid stool within the colon. However, using copious amounts of irrigation, I was able to adequately visualize and assess the colonic mucosa. No other abnormalities were noted. The scope was brought into the rectum and retroflexed to allow visualization of the anal canal opening. This appeared normal and a photograph was taken. The scope was straightened out and fully withdrawn. The cecum to anus time was 18 minutes. The patient tolerated the procedure well and was transferred to the PACU in stable condition. ENDOSCOPIC DIAGNOSES: 1. Transverse colon polyps x2. 2. Sigmoid colon polyp x1. 3. Diverticulosis. RECOMMENDATION: Follow up in clinic in two weeks. ISHAN COUCH /[id number]
== END 2021-01-03 09:40 | disposition home or self-care (01) ==
LOC: MW.SDS 06:33
PROVIDERS: ATTEND Surgery
DX: Z12.11 Encounter for screening for malignant neoplasm of colon (principal); D12.3 Benign neoplasm of transverse colon; D12.5 Benign neoplasm of sigmoid colon; K57.30 Diverticulosis of large intestine without perforation or abscess without bleeding; K52.9 Noninfective gastroenteritis and colitis, unspecified; K63.89 Other specified diseases of intestine; J44.1 Chronic obstructive pulmonary disease with (acute) exacerbation; E78.00 Pure hypercholesterolemia, unspecified; I10 Essential (primary) hypertension; M81.0 Age-related osteoporosis without current pathological fracture; Z86.73 Personal history of transient ischemic attack (TIA), and cerebral infarction without residual deficits; Z88.8 Allergy status to other drugs, medicaments and biological substances; Z79.82 Long term (current) use of aspirin; Z79.899 Other long term (current) drug therapy; Z98.890 Other specified postprocedural states; Z87.891 Personal history of nicotine dependence
CPT/HCPCS: 45380; J2704; J3010; J7120; 00811; 99100

== ENCOUNTER 2022-09-10 23:23 | Emergency (ER) | payer MEDICARE, OTHER ==
[2022-09-10] MEDS ORDERED: Sodium Chloride 0.9% 500 ML IV SCH (23:45)
[2022-09-11 00:13] LABS: HEMATOCRIT 39.7 % (38.0-50.0); HEMOGLOBIN 13.6 g/dL (13.0-17.0); MEAN CORPUSCULAR HEMOGLOBIN 36.6 pg (27.0-32.0); MEAN CORPUSCULAR HGB CONC 34.3 g/dL (31.0-37.0); MEAN CORPUSCULAR VOLUME 106.7 fL (80.0-98.0); PLATELET COUNT,PLT 188 K/uL (150-400); RED BLOOD CELL COUNT 3.72 M/uL (4.50-5.90); WHITE BLOOD CELL COUNT,WBC 9.84 K/uL (4.0-11.0)
[2022-09-11 00:27] LABS: INR 1.03 (0.86-1.11)
[2022-09-11 00:37] LABS: A/G RATIO 1.1 (0.9-1.6); ALBUMIN 3.2 g/dL (3.4-5.0); BILIRUBIN TOTAL 0.6 mg/dL (0.2-1.0); CALCIUM 8.4 mg/dL (8.5-10.1); CARBON DIOXIDE,CO2 21.5 mmol/L (21.0-32.0); CREATININE 1.2 mg/dL (0.8-1.3); PROTEIN TOTAL,TP 6.2 g/dL (6.4-8.2)
== END 2022-09-11 03:43 ==
LOC: MW.ED 23:23
DX: K62.5 Hemorrhage of anus and rectum (principal); I48.91 Unspecified atrial fibrillation; I25.10 Atherosclerotic heart disease of native coronary artery without angina pectoris; E78.00 Pure hypercholesterolemia, unspecified; I10 Essential (primary) hypertension; J44.9 Chronic obstructive pulmonary disease, unspecified; Z86.73 Personal history of transient ischemic attack (TIA), and cerebral infarction without residual deficits; Z88.1 Allergy status to other antibiotic agents; Z79.02 Long term (current) use of antithrombotics/antiplatelets; Z79.82 Long term (current) use of aspirin; Z79.899 Other long term (current) drug therapy
CPT/HCPCS: 36415; 80053; 85027; 85610; 86850; 86900; 86901; 96360; 99284; J7040; 99285

== ENCOUNTER 2022-10-15 12:57 | Emergency (ER) | payer MEDICARE, OTHER ==
[2022-10-15] MEDS ORDERED: Sodium Chloride 0.9% 10 ML Syringe FLUSH PRN (13:22)
[2022-10-15] MEDS ORDERED: Sodium Chloride 0.9% 2.5 ML Syringe FLUSH PRN (13:22)
[2022-10-15 14:19] LABS: BASOPHILS PERCENT AUTO 0.3 % (0.0-1.5); EOSINOPHILS ABSOLUTE AUTO 0.1 K/uL (0.0-0.7); EOSINOPHILS PERCENT AUTO 0.7 % (0.0-7.0); HEMATOCRIT 39.1 % (38.0-50.0); HEMOGLOBIN 12.8 g/dL (13.0-17.0); LYMPHOCYTES ABSOLUTE AUTO 1.7 K/uL (0.6-2.4); LYMPHOCYTES PERCENT AUTO 16.8 % (16.0-40.0); MEAN CORPUSCULAR HEMOGLOBIN 33.6 pg (27.0-32.0); MEAN CORPUSCULAR HGB CONC 32.7 g/dL (31.0-37.0); MEAN CORPUSCULAR VOLUME 102.6 fL (80.0-98.0); MONOCYTES ABSOLUTE AUTO 0.8 K/uL (0.0-0.8); MONOCYTES PERCENT AUTO 7.8 % (0.0-15.0); NEUTROPHILS ABSOLUTE AUTO 7.7 K/uL (1.4-5.7); NEUTROPHILS PERCENT AUTO 74.4 % (48.0-80.0); NRBC ABSOLUTE 0 K/uL; PLATELET COUNT,PLT 255 K/uL (150-400); RED BLOOD CELL COUNT 3.81 M/uL (4.50-5.90); WHITE BLOOD CELL COUNT,WBC 10.32 K/uL (4.0-11.0)
[2022-10-15] MEDS ORDERED: Albuterol/Ipratropium 3.0-0.5 MG/3 ML Neb Soln NEB ONE (14:45)
[2022-10-15 14:47] LABS: A/G RATIO 0.8 (0.9-1.6); ALBUMIN 2.8 g/dL (3.4-5.0); BILIRUBIN TOTAL 0.4 mg/dL (0.2-1.0); CALCIUM 8.9 mg/dL (8.5-10.1); CARBON DIOXIDE,CO2 26.6 mmol/L (21.0-32.0); CREATININE 1.1 mg/dL (0.8-1.3); EST CRCL DRUG DOSING (CG) 52.67 mL/min; POTASSIUM,K 3.5 mmol/L (3.5-5.1); PROTEIN TOTAL,TP 6.5 g/dL (6.4-8.2)
[2022-10-15 14:48] LABS: LACTIC ACID 1.2 mmol/L (0.4-2.0)
[2022-10-15] MEDS ORDERED: Iopamidol 755 MG/ML 500 ML Multipack Bottle IVPUSH STA (15:57)
== END 2022-10-15 18:20 | disposition home or self-care (01) ==
LOC: MW.ED 12:57
DX: J18.9 Pneumonia, unspecified organism (principal); I48.91 Unspecified atrial fibrillation; I25.10 Atherosclerotic heart disease of native coronary artery without angina pectoris; E78.00 Pure hypercholesterolemia, unspecified; I10 Essential (primary) hypertension; J44.9 Chronic obstructive pulmonary disease, unspecified; M19.90 Unspecified osteoarthritis, unspecified site; Z95.5 Presence of coronary angioplasty implant and graft; Z86.73 Personal history of transient ischemic attack (TIA), and cerebral infarction without residual deficits; Z79.01 Long term (current) use of anticoagulants; Z79.82 Long term (current) use of aspirin; Z79.899 Other long term (current) drug therapy; Z88.1 Allergy status to other antibiotic agents
CPT/HCPCS: 36415; 71046; 71275; 80053; 83605; 83735; 83880; 84484; 85025; 85379; 87040; 93005; 99285; J3490; Q9967; 93010; 99284; J7620-GY

== ENCOUNTER 2023-12-03 19:36 | Emergency (ER) | payer MEDICARE, OTHER ==
[2023-12-03 19:50] LABS: BASOPHILS ABSOLUTE AUTO 0.02 K/uL (0.00-0.20); BASOPHILS PERCENT AUTO 0.3 % (0.0-1.0); EOSINOPHILS ABSOLUTE AUTO 0.06 K/uL (0.00-0.45); EOSINOPHILS PERCENT AUTO 0.8 % (0.0-6.0); HEMOGLOBIN 14.4 g/dL (14.0-18.0); IMMATURE GRAN ABSOLUTE AUTO 0.09 K/uL (0.00-0.05); IMMATURE GRAN PERCENT AUTO 1.1 % (0.0-0.4); LYMPHOCYTES ABSOLUTE AUTO 2.28 K/uL (1.00-4.80); MEAN CORPUSCULAR HEMOGLOBIN 33.3 pg (28.0-32.0); MEAN CORPUSCULAR HGB CONC 33.5 g/dL (32.0-36.0); MEAN CORPUSCULAR VOLUME 99.3 fL (83.0-99.0); MEAN PLATELET VOLUME 10.6 fL (9.4-12.4); MONOCYTES PERCENT AUTO 10.2 % (0.0-8.0); NEUTROPHILS ABSOLUTE AUTO 4.61 K/uL (1.80-7.70); NEUTROPHILS PERCENT AUTO 58.6 % (41.0-71.0); PLATELET COUNT,PLT 228 K/uL (150-400); RED BLOOD CELL COUNT 4.33 M/uL (4.52-5.90); WHITE BLOOD CELL COUNT,WBC 7.86 K/uL (3.9-11.3)
[2023-12-03] MEDS: methylPREDNISolone Sodium Succinate 125 MG/2 ML SDV IVPUSH STA (20:00)
[2023-12-03] MEDS: Albuterol 0.083% 2.5 MG/3 ML Neb Soln NEB STA (20:00)
[2023-12-03] MEDS: Albuterol/Ipratropium 3.0-0.5 MG/3 ML Neb Soln NEB STA (20:00)
[2023-12-03 20:06] LABS: INR 1.03 (0.86-1.11)
[2023-12-03 20:26] LABS: A/G RATIO 0.8 (0.9-1.6); BILIRUBIN TOTAL 0.7 mg/dL (0.2-1.0); CALCIUM 9.2 mg/dL (8.5-10.1); CARBON DIOXIDE,CO2 25.5 mmol/L (21.0-32.0); CREATININE 1.1 mg/dL (0.8-1.3); EST CRCL DRUG DOSING (CG) 50.88 mL/min; POTASSIUM,K 3.8 mmol/L (3.5-5.1); PROTEIN TOTAL,TP 6.7 g/dL (6.4-8.2)
[2023-12-03 20:30] LABS: CORONAVIRUS COVID-19 NAA POSITIVE (NEGATIVE); INFLUENZA A NAA NEGATIVE (NEGATIVE); INFLUENZA B NAA NEGATIVE (NEGATIVE); RESPIRATORY SYNCYTIAL VIR NAA NEGATIVE (NEGATIVE)
== END 2023-12-03 22:05 | disposition home or self-care (01) ==
LOC: MW.ED 19:36
DX: U07.1 COVID-19 (principal); Z75.8 Other problems related to medical facilities and other health care; I10 Essential (primary) hypertension; E78.00 Pure hypercholesterolemia, unspecified; I25.10 Atherosclerotic heart disease of native coronary artery without angina pectoris; J44.9 Chronic obstructive pulmonary disease, unspecified; Z79.899 Other long term (current) drug therapy; Z79.84 Long term (current) use of oral hypoglycemic drugs; Z88.1 Allergy status to other antibiotic agents
CPT/HCPCS: 0241U; 36415; 71045; 80053; 83690; 84484; 85025; 85610; 93005; 96374; 99285; J2919; J7620-GY